=== PATIENT | male | born 1940 | race Caucasian/White ===

== ENCOUNTER 2017-09-12 16:00 | Inpatient (IN) ==
--- NOTE | 2017-09-12 16:07 | Emergency Department Report ---
Asthma HPI - General Stated Complaint: dyspnea,wound 3+ edema Time Seen by Provider: 09/12/17 16:07 Source: patient Mode of arrival: ambulatory Limitations: no limitations - History of Present Illness HPI Narrative: Patient is a 77-year-old male presents emergency room for evaluation of increasing weakness. Patient currently being treated for multiple small wounds on his bilateral lower extremities, has been noted to be getting significantly more weak at the senior care, and short of breath. Today patient was decided to be brought to the ER for evaluation. Patient states he just feels weak no specific complaint. - Related Data Home Medications Medication Instructions Recorded Confirmed Ascorbic Acid [Vitamin C] 1,000 mg PO DAILY #0 11/14/15 09/12/17 Pantoprazole Sodium 40 mg PO DAILY #0 11/14/15 09/12/17 Amiodarone [Pacerone] 200 mg PO BID 06/22/17 09/12/17 Metoprolol Tartrate [Lopressor] 100 mg PO BID 06/22/17 09/12/17 Tramadol [Ultram] 50 mg PO QID PRN 06/22/17 09/12/17 Melatonin/Pyridoxine HCl (B6) 6 mg PO HS 09/12/17 09/12/17 [Melatonin 3 mg Tablet] Simethicone 125 mg PO PRN 09/12/17 09/12/17 Tamsulosin [Flomax] 0.4 mg PO HS 09/12/17 09/12/17 Previous Rx's Medication Instructions Recorded Albuterol/Ipratropium [Duoneb] 1 unit AEROSOL QID PRN #0 09/24/17 Milk of Magnesia [Mom] 30 ml PO DAILY PRN udc 09/24/17 Oxycodone/Apap 7.5/325 [Percocet 1 tab PO Q4H #0 tab 09/24/17 7.5/325] PEG 3350 17gm PACKET [Miralax] 34 gm PO DAILY packet 09/24/17 Propylthiouracil 150 mg PO Q6HR tab 09/24/17 Senna + Docusate [Senna Plus 2 tab PO BID tab 09/24/17 Tablet] Allergies Allergy/AdvReac Type Severity Reaction Status Date / Time sulfamethoxazole Allergy Unknown Verified 09/12/17 16:41 [From Bactrim] trimethoprim [From Bactrim] Allergy Unknown Verified 09/12/17 16:41 Review of Systems Constitutional: Reports: weakness. Denies: fever, chills ENT: Denies: throat pain, dental pain Cardiovascular: Reports: dyspnea on exertion. Denies: chest pain Respiratory: Denies: cough, dyspnea Gastrointestinal: Denies: abdominal pain, nausea, vomiting Neurological: Denies: headache Psychiatric: Denies: anxiety, depression [facility] Patient Stated Medical History Hypertension Yes Other GI Yes: CONSTIPATION Osteoarthritis Yes Surgical History: Aortic aneurysm repair, appendectomy, pacemaker insertion - Social History Smoking status: Never smoker Substance use type: does not use Alcohol intake frequency: does not drink Physical Exam - Limitations Limitations: no limitations - General General appearance: alert, lethargic - Eye Eye exam: Present: PERRL, EOMI - ENT ENT exam: Present: normal oropharynx, mucous membranes dry. Absent: mucous membranes moist - Chest Chest inspection: Present: symmetric chest wall rise. Absent: tenderness - Respiratory Respiratory exam: Present: normal lung sounds bilaterally. Absent: respiratory distress, wheezes, stridor - Cardiovascular Cardiovascular exam: Present: regular rate, normal rhythm, normal heart sounds - Abdominal Exam Abdominal exam: Present: soft, normal bowel sounds. Absent: distention, tenderness - Extremities Exam Extremities exam: Present: normal capillary refill, pedal edema (3+ bilateral pitting) - Skin Skin exam: Present: warm, dry, pallor - Neurological Exam Neurological exam: Present: alert, oriented X3 - Psychiatric Psychiatric exam: Present: normal affect, normal mood Course Vital Signs Temperature 98.6 F 09/12/17 16:00 Pulse Rate 68 09/12/17 16:00 Respiratory Rate 22 09/12/17 16:00 Blood Pressure 90/55 09/12/17 16:00 Pulse Oximetry 93 09/12/17 16:00 Temperature 98.5 F 09/24/17 09:10 Pulse Rate 76 09/24/17 09:10 Respiratory Rate 16 09/24/17 15:10 Blood Pressure 113/64 09/24/17 09:10 Pulse Oximetry 88 L 09/24/17 11:36 Dyspnea - Differential Diagnosis Differential diagnosis: Likely: Acute exacerbation, Status asthmaticus, Acute asthmatic bronchitis, PE, Pneumonia, COPD exacerbation, Pulmonary edema systolic , Pulmonary edema dystolic, ARDS, Pneumothorax, Foreign body in trachea - Medical Records Attestation: I reviewed the patient's medical records. - Lab Data Attestation: I reviewed the patient's lab results. Result diagrams: 09/23/17 04:17 09/23/17 04:17 Lab Results 09/12/17 09/12/17 09/12/17 Range/Units 16:28 16:28 16:28 WBC 12.0 H (4.5-11.0) T/MM3 RBC 2.44 L (4.50-5.90) M/MM3 Hgb 6.9 L (13.5-17.5) GM/DL Hct 20.7 L (41-53) % MCV 84.8 (80-100) UM3 MCH 28.3 (26-34) UUG MCHC 33.3 (31-37) GM/DL RDW Std Deviation 45.6 (36.9-50.2) FL Plt Count 520 H (130-400) T/MM3 MPV 10.1 (9.4-12.4) UM3 Immature Gran % (Auto) Not performed Neut % (Auto) Not performed Lymph % (Auto) Not performed [place] % (Auto) Not performed Eos % (Auto) Not performed Baso % (Auto) Not performed Neut # (Auto) Not performed Lymph # (Auto) Not performed [place] # (Auto) Not performed Eos # (Auto) Not performed Baso # (Auto) Not performed Abs Immat Gran (auto) Not performed Neutrophils % (Manual) 88.0 H (33-66) % Band Neutrophils % 5.0 (0-6) % Lymphocytes % (Manual) 4.0 L (23-45) % Reactive Lymphs % 1.0 H (0-0) % Monocytes % (Manual) 2.0 (0-9.0) % Neutrophils # (Manual) 10.6 H (1.8-7.7) T/MM3 Band Neutrophils # 0.6 T/MM3 Lymphocytes # (Manual) 0.5 L (1-4.8) T/MM3 Abs React Lymphs (Man) 0.1 H (0-0) T/MM3 Monocytes # (Manual) 0.2 (0-0.8) T/MM3 Hypochromasia 1+ Poikilocytosis 1+ Anisocytosis 1+ Ovalocytes 1+ RBC Morph Comment Abnormal Turbidity < 20 (0-20) Sodium 132 L (134-144) MEQ/L Potassium 4.6 (3.6-5) MEQ/L Chloride 100 (98-107) MEQ/L Carbon Dioxide 25 (22-30) MEQ/L Anion Gap 7 (5-15) MEQ/L BUN 41.0 H (9-20) MG/DL Creatinine 1.9 H (0.8-1.5) MG/DL GFR Calculation 35 BUN/Creatinine Ratio 22 (6-26) RATIO Glucose 84 (75-110) MG/DL Calculated Osmolality 264 (261-280) MOSM/KG Calcium 6.6 L (8.4-10.2) MG/DL Total Bilirubin 0.50 (0.20-1.30) MG/DL Icterus Index < 2 (0-7) AST 62 H (17-59) U/L ALT 57 (21-72) U/L Alkaline Phosphatase 74 (38-126) U/L Troponin I 0.016 (0-0.12) ng/ml B-Natriuretic Peptide 4120 H (0-175) pg/mL Total Protein 4.8 L (6.3-8.2) G/DL Albumin 1.7 L (3.5-5.0) G/DL Globulin 3.1 (2.4-3.6) G/DL Albumin/Globulin Ratio 0.5 L (1.1-2.2) RATIO Plasma Lactate 1.3 (0.6-2.2) MMOL/L Procalcitonin 0.44 NG/ML TSH (0.47-4.68) MIU/L Specimen Hemolysis < 15 (0-25) Blood Type Antibody Screen Crossmatch (AHG) 09/12/17 09/12/17 Range/Units 16:28 17:07 WBC (4.5-11.0) T/MM3 RBC (4.50-5.90) M/MM3 Hgb (13.5-17.5) GM/DL Hct (41-53) % MCV (80-100) UM3 MCH (26-34) UUG MCHC (31-37) GM/DL RDW Std Deviation (36.9-50.2) FL Plt Count (130-400) T/MM3 MPV (9.4-12.4) UM3 Immature Gran % (Auto) Neut % (Auto) Lymph % (Auto) [place] % (Auto) Eos % (Auto) Baso % (Auto) Neut # (Auto) Lymph # (Auto) [place] # (Auto) Eos # (Auto) Baso # (Auto) Abs Immat Gran (auto) Neutrophils % (Manual) (33-66) % Band Neutrophils % (0-6) % Lymphocytes % (Manual) (23-45) % Reactive Lymphs % (0-0) % Monocytes % (Manual) (0-9.0) % Neutrophils # (Manual) (1.8-7.7) T/MM3 Band Neutrophils # T/MM3 Lymphocytes # (Manual) (1-4.8) T/MM3 Abs React Lymphs (Man) (0-0) T/MM3 Monocytes # (Manual) (0-0.8) T/MM3 Hypochromasia Poikilocytosis Anisocytosis Ovalocytes RBC Morph Comment Turbidity (0-20) Sodium (134-144) MEQ/L Potassium (3.6-5) MEQ/L Chloride (98-107) MEQ/L Carbon Dioxide (22-30) MEQ/L Anion Gap (5-15) MEQ/L BUN (9-20) MG/DL Creatinine (0.8-1.5) MG/DL GFR Calculation BUN/Creatinine Ratio (6-26) RATIO Glucose (75-110) MG/DL Calculated Osmolality (261-280) MOSM/KG Calcium (8.4-10.2) MG/DL Total Bilirubin (0.20-1.30) MG/DL Icterus Index (0-7) AST (17-59) U/L ALT (21-72) U/L Alkaline Phosphatase (38-126) U/L Troponin I (0-0.12) ng/ml B-Natriuretic Peptide (0-175) pg/mL Total Protein (6.3-8.2) G/DL Albumin (3.5-5.0) G/DL Globulin (2.4-3.6) G/DL Albumin/Globulin Ratio (1.1-2.2) RATIO Plasma Lactate (0.6-2.2) MMOL/L Procalcitonin NG/ML TSH < 0.02 L D (0.47-4.68) MIU/L Specimen Hemolysis (0-25) Blood Type O Positive Antibody Screen Negative Crossmatch (AHG) See Detail - Radiology Data Attestation: I reviewed the patient's radiology results. Improved with continued bilateral effusions with questionable mass Disposition Clinical Impression: Acute blood loss anemia, Dyspnea, Left lower lobe pneumonia Disposition: 02 To [facility] Acute Care Condition: Stable Time of Disposition: 17:06 - Seen By: physician
[2017-09-12] MEDS ORDERED: LEVOFLOXACIN PB 750 MG/150 ML BAG IV SCH (16:30)
--- NOTE | 2017-09-12 18:03 | History & Physical Report ---
History of Present Illness Date: 09/12/17 Chief complaint: trouble breathing HPI: Mesfin Fu is a 77 y/o male with a complicated medical hx. 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 He has been living at [facility]. He's had postop complications including wounds - a sacral wound, one to his right hip that is being treated with a wound vac, and wounds on both lower ext. His left leg has been chronically edematous since the surgery and more recently he's developed swelling to his upper left arm. He denies paresthesias but couldn't feel touch to his left lower leg during assessment. His denies any change in mentation - he has occasional confusion, especially regarding timeline. Over the last 2 weeks, he's had increasing shortness of breath, poor appetite, increased leg swelling, weeping of serous fluids from left arm and possibly legs. His , Casie, describes his breathing being so difficult at times he can' t talk. He had a CT scan to look for PE on 09/08/17. While this was negative for PE, it was positive for a moderate to large left pleural effusion, scattered bilateral groundlgass opacities, and a 3.6 x 2.4 cm masslike airspace consolidation in the medial RLL. He was started on cefdinir and Zithromax on . He's had fevers of 101-102 over the last week. He's had a cough as well. He feels weak in general. His describes abdominal cramps but he denies any current abdominal pain, or any recent n/v/d/c. He hasn't been voiding very much , but when he does it verduzco. He presented to [facility] ED on 09/12/17 for further evaluation of his symptoms. Initially he was maintaining sats on 3L, but then dropped to 81%. BP was as low as 82/46, and he received 500 mL fluid bolus. BP improved to >100/50. WBC was elevated at 12, and he had a left shift with 88% neutrophils and 5% bands. Hgb was markedly low at 6.9 and his stool was heme positive. Platelets were elevated at 520. Na was slightly low at 132; BUN and creatinine were elevated at 41 and 1.9, above baseline (per [facility] records, in Jun BUN was 10 and creatinine was 0.88, but in 2016 creatinine was 1.3-1.5). Albumin was also quite low at 1.7. CXR showed left sided pneumonia. He received Levaquin 750 mg IV for pneumonia. He was typed and screened for [address] Proctor was consulted and admitted the patient to inpatient status. LOS will exceed 2 overnights and will require cardiopulmonary stabilization, treatment of possible sepsis, and surgical consultation for heme positive stools and regarding the pleural effusion. Review of Systems All systems PM: 10-point ROS was reviewed, no additional remarkable complaints except - Constitutional Constitutional: Present: as per HPI - EENMT Eyes: Absent: change in vision Mouth/Throat: Absent: changes in swallowing - Cardiovascular Cardiovascular: Present: as per HPI Vascular: Present: see HPI - Respiratory Respiratory: Present: as per HPI - Gastrointestinal Gastrointestinal: Present: as per HPI - Genitourinary Genitourinary: Present: as per HPI - Musculoskeletal Musculoskeletal: Present: as per HPI - Integumentary/Breasts Integumentary: Present: as per HPI - Neurological Neurological: Present: as per HPI - Psychiatric Psychiatric: Present: as per HPI - Endocrine Endocrine: Absent: polyuria - Hematologic/Lymphatic Hematologic/Lymphatic: Present: easy bruising. Absent: lymphadenopathy PFSH AAA PVD Sacral pressure ulcer stage 3 Multiple wounds Paroxysmal A-fib (EF from 2016 was 50-55%) HTN Mild COPD; on 2L HS B/L small upper lobe pulmonary nodules Urinary retention - had Mercedes postop HLD GERD Constipation MERI, Vitamin B12, and folate deficiencies OA Nonambulatory Surgical History: Aortic aneurysm repair; 2004; again in Jun, 2016 s/p EVAR with type II endoleak s/p aortagram, b/l fem art exposure. Pacemaker insertion for bradycardia ([facility] [facility]). Hernia repairs x 3 or 4. Colonoscopy (about 2011) . Bowel resection for perforation. Appendectomy Family History: Father of unknown causes when Mesfin was only 2 years old. Mother had breast cancer, and of a stroke. 4 sisters, 1 still living. Two from kidney failure. The other one of uncertain causes. - Social History Smoking status: Former smoker (quit 11 years ago) Packs per day: 2 Packs-years: 17 Substance use type: does not use Alcohol intake frequency: does not drink Housing: [facility] Social history: PCP: Dr. Doyle Uro: Isadora CV: [facility] Lisa [facility] Home Medications Medication Instructions Recorded Confirmed Type Pravastatin Sodium 80 mg PO HS #0 10/07/12 09/12/17 History Ascorbic Acid [Vitamin C] 1,000 mg PO DAILY #0 11/14/15 09/12/17 History Pantoprazole Sodium 40 mg PO DAILY #0 11/14/15 09/12/17 History Amiodarone [Pacerone] 200 mg PO BID 06/22/17 09/12/17 History Furosemide [Lasix] 40 mg PO DAILY 06/22/17 09/12/17 History Lisinopril [Prinivil] 5 mg PO DAILY 06/22/17 09/12/17 History Metoprolol Tartrate [Lopressor] 100 mg PO BID 06/22/17 09/12/17 History Tramadol [Ultram] 50 mg PO QID PRN 06/22/17 09/12/17 History Albuterol/Ipratropium [Duoneb] 1 unit AEROSOL QID 09/12/17 09/12/17 History Azithromycin [Zithromax] 250 mg PO DAILY 09/12/17 09/12/17 History Cefdinir 600 mg PO DAILY 09/12/17 09/12/17 History Cholecalciferol (Vitamin D3) 1,000 unit PO DAILY 09/12/17 09/12/17 History [Vitamin D3] Docusate Sodium [Colace] 100 mg PO BID 09/12/17 09/12/17 History Ferrous Sulfate [Iron] 325 mg PO BID 09/12/17 09/12/17 History Magnesium Oxide [Magox 400] 400 mg PO BID 09/12/17 09/12/17 History Melatonin/Pyridoxine HCl (B6) 6 mg PO HS 09/12/17 09/12/17 History [Melatonin 3 mg Tablet] Multivitamin [One Daily 1 each PO DAILY 09/12/17 09/12/17 History Multivitamin] Polyethylene Glycol 3350 17 gm PO DAILY 09/12/17 09/12/17 History Rivaroxaban [Xarelto] 20 mg PO DAILY 09/12/17 09/12/17 History Simethicone 125 mg PO PRN 09/12/17 09/12/17 History Tamsulosin [Flomax] 0.4 mg PO HS 09/12/17 09/12/17 History Allergies Allergy/AdvReac Type Severity Reaction Status Date / Time sulfamethoxazole Allergy Unknown Verified 09/12/17 16:41 [From Bactrim] trimethoprim [From Bactrim] Allergy Unknown Verified 09/12/17 16:41 Exam Vital Signs: Temperature 98.6 F 09/12/17 16:00 Pulse Rate 64 09/12/17 17:11 Respiratory Rate 20 09/12/17 17:11 Blood Pressure 102/51 09/12/17 17:11 Pulse Oximetry 92 09/12/17 17:11 - Constitutional Present: well nourished, well developed, thin, other (chills - covered with multiple blankets) - Routine HEENT Exam Head: Present: normocephalic Eye: Present: PERRL. Absent: conjunctival icterus, scleral injection, conjunctivae pink ENT: Present: mucous membranes dry, oropharynx clear. Absent: dentition normal - Routine Neck Exam Present: supple - Routine Respiratory Exam Present: decreased breath sounds (B/L lower lobes) - Routine Cardiovascular Exam Present: RRR, S1, S2 Comments: distant heart sounds - Routine Abdominal Exam Present: soft, normoactive bowel sounds, non distended, non tender, hernia, surgical scars - Routine Extremities Exam Present: edema (both legs, worse on left leg; also noted to left upper arm), pallor Comments: foam boots b/l - Routine Skin Exam Present: pallor, warm, wounds (wound vac to right hip; linear erythemic lesions noted to both lower ext; wounds are dressed with Mepilex to both lower ext.) - Routine Neurological Exam Present: alert, oriented X3, CN II-XII intact, sensory deficit (left lower extremity), normal speech. Absent: moving all extremities (unable to move left leg - chronic since surgery), facial asymmetry - Routine Psychiatric Exam Present: normal affect, normal thought process, cooperative Results - Labs CBC & Chem 7: 09/12/17 16:28 09/12/17 16:28 - Imaging and Cardiology Chest x-ray Status: image reviewed by me (Left sided pneumonia) Assessment and Plan Assessment and Plan: IMPRESSION Pneumonia, left lung R/O severe sepsis - MAP <65 ABLA secondary to suspected GI bleed Moderate to large left pleural effusion 3.6 x 2.4 cm rounded masslike airspace consolidation RLL Suspect CHF with elevated BNP Elevated creatinine Hypoxia Thrombocytosis, POA Hyponatremia, POA Malnutrition with albumin level of 1.7 AAA, PVD Sacral pressure ulcer stage 3 Multiple wounds with wound vac to right hip Paroxysmal A-fib (EF from 2016 was 50-55%) HTN Mild COPD; on 2L HS HLD GERD Constipation MERI, Vitamin B12, and folate deficiencies Nonambulatory; left leg paralysis PLAN Admit, inpt status. PCP: Dr. Doyle. Code status: Full code. Pneumonia, R/O severe sepsis, hypoxia, mod-large pleural effusion, mild COPD -PSI/PORT = 147 points, risk class V (27-29% mortality) -Failed outpatient treatment with cefdinir and azithromycin (09/08-09/12) -received Levaquin IV in Ed but with severe interaction with amiodarone will start Rocephin instead -sputum cx, urine legionella and strep pneumo, resp panel -DuoNeb QID -O2 to maintain sats -elect not to give full fluid bolus d/t pleural effusion, hypoxia, and elevated BNP. BP responded well to 500 mL fluid challenge. -consult Dr. Mcpherson to tap pleural effusion. -consider pulm consult on Saturday 09/15. -suspect thrombocytosis is reactive to acute conditions. -may need oncology evaluation with masslike consolidation seen on CT chest ABLA secondary to suspected GI bleed -PRBC transfusion x1 unit. -hold Xarelto -anemia may be contributing to hypotension. -clear liquid diet for now (at [facility] he is on a regular diet and regular liquids) -PPI Suspect CHF with elevated BNP and mod-large pleural effusion -check echocardiogram -EKG -continue amiodarone and metoprolol if BP can tolerate -consider cardiology consultation (Dr. Porras) Elevated creatinine, hyponatremia -500 mL NS bolus in ED -hold Lasix, lisinopril Multiple wounds, Malnutrition -consult wound clinic -consult dietitian when diet is advanced -hx MERI, vit B12 and folate deficiencies Soto Proctor M.D. 09/12/17 9 PM Mr. Fu is a complex patient, including incomplete database despite review of transfer records from [facility] and available outpatient records from [facility]. Duration of anemia is uncertain-hemoglobin known to be 12.8 on 06/22 but that precedes the aneurysm repair in June by Dr. Raul Briscoe. No interval hemoglobins available. Patient is heme positive and may require endoscopic evaluation when other issues clarified. He denies melanotic stools or bright red blood per rectum. His primary complaint today is dyspnea and he reports that he is only been on oxygen for 2-3 weeks. He describes temperatures of 102-104 although review of available records from the [facility] do not reveal any temperatures above 100. Nonetheless CTA was obtained on 09/08 which was negative for PE but demonstrated a 3.6 x 2.4 medial lower lobe rounded mass speculated to be rounded infiltrate versus solid mass. This is nearly pleural based and there is minimal pleural effusion on the right. There is a moderately large left pleural effusion with near complete collapse of the left lower lobe and there does appear to be a rounded area either at the superior aspect of the left lower lobe or the inferior aspect of the left upper lobe. Chest x-ray today does not demonstrate the effusion nearly as well as the CT did but there is suggestion of the left lower lobe collapse, the right lower lobe mass cannot be identified by me on today's x-ray. The patient had a follow-up CT of the abdomen on 08/[address] Briscoe at which time trace right and small left pleural effusions were described and although not well seen there is a suggestion of a pleural based right lower lobe mass in the right medial lobe at that time. Hypotension has not been reported and recent readings at the nursing facility and he has intermittently been hypertensive until this morning when blood pressures was reported at 91/42. long term reports general decline in health as indication for ER referral. On exam the patient is apprehensive, difficult to keep on track, and afebrile Breath sounds are diminished but there is no wheezing, breath sounds are significantly diminished in the left laterally-posterior lung argueta were not evaluated as blood transfusion was being initiated while I was trying to examine him Cardiac exam regular There is generalized anasarca and suggestion of abdominal ascites Repeat CT of the abdomen/pelvis without IV contrast-eval for ascites and sacral erosions. Contrast load earlier this week with CTA may be contributing to current creatinine although he appears to have chronic underlying CKD stage III Surgical consultation; thoracentesis can potentially wait until next week but I think will benefit patient symptomatically and permit cytologies and cultures to be obtained. Of note however the mass described is on the right and the larger pleural effusion is on the left. Assessment nutrition; albumin has dropped from 3.5 on 06/22 to current value of 1.7. Given uncertainty of whether there is truly pneumonia will await culture before expanding antibiotics; sirs criteria can also potentially be explained by blood loss and may not reflect infection. Should hemodynamic instability persist or fever evolved will require empiric expansion of antibiotics to cover healthcare associated pathogens. Wound VAC resumed for coccyx wound-nursing reports no surrounding erythema: Wound care notes from earlier this week report the coccyx ulcer has granulation tissue with some slough present and that ulcers in the right lateral malleolus has granulation tissue, eschar, and slough while multiple ulcerations/wounds in the left lower extremity are granulating with slough present. Wound cultures on July 25 (including possible sacral bone culture) positive for oxacillin resistant coag negative staph in addition to unidentified gram-negative cordell and strep viridans. Check inflammatory markers, will require inpatient wound care consult. GI Prophylaxis: Protonix Resuscitation Status: Full Code Hospital Course Summary Disclaimer: The visit summary below is not to be considered part of the above Progress Note. Hospital Course: 09/12/17 IMPRESSION Pneumonia, left lung R/O severe sepsis - MAP <65 ABLA secondary to suspected GI bleed Moderate to large left pleural effusion 3.6 x 2.4 cm rounded masslike airspace consolidation RLL Suspect CHF with elevated BNP Elevated creatinine Hypoxia Thrombocytosis, POA Hyponatremia, POA Malnutrition with albumin level of 1.7 AAA, PVD Sacral pressure ulcer stage 3 Multiple wounds with wound vac to right hip Paroxysmal A-fib (EF from 2016 was 50-55%) HTN Mild COPD; on 2L HS HLD GERD Constipation MERI, Vitamin B12, and folate deficiencies Nonambulatory; left leg paralysis PLAN Admit, inpt status. PCP: Dr. Doyle. Code status: Full code. Pneumonia, R/O severe sepsis, hypoxia, mod-large pleural effusion, mild COPD -PSI/PORT = 147 points, risk class V (27-29% mortality) -Failed outpatient treatment with cefdinir and azithromycin (09/08-09/12) -received Levaquin IV in Ed but with severe interaction with amiodarone will start Rocephin instead -sputum cx, urine legionella and strep pneumo, resp panel -DuoNeb QID -O2 to maintain sats -elect not to give full fluid bolus d/t pleural effusion, hypoxia, and elevated BNP. BP responded well to 500 mL fluid challenge. -consult Dr. Mcpherson to tap pleural effusion. -consider pulm consult on Saturday 09/15. -suspect thrombocytosis is reactive to acute conditions. -may need oncology evaluation with masslike consolidation seen on CT chest ABLA secondary to suspected GI bleed -PRBC transfusion x1 unit. -hold Xarelto -anemia may be contributing to hypotension. -clear liquid diet for now (at [facility] he is on a regular diet and regular liquids) -PPI Suspect CHF with elevated BNP and mod-large pleural effusion -check echocardiogram -EKG -continue amiodarone and metoprolol if BP can tolerate -consider cardiology consultation (Dr. Porras) Elevated creatinine, hyponatremia -500 mL NS bolus in ED -hold Lasix, lisinopril Multiple wounds, Malnutrition -consult wound clinic -consult dietitian when diet is advanced -hx MERI, vit B12 and folate deficiencies
[2017-09-12 18:13] VITALS: BMI 24.7
[2017-09-12] MEDS ORDERED: ONDANSETRON 4 MG/2 ML INJECTION IVP PRN (18:40)
[2017-09-12] MEDS ORDERED: ACETAMINOPHEN 500 MG TABLET PO PRN (18:40)
[2017-09-12] MEDS: ALBUTEROL/IPRATROPIUM 2.5mg-0.5mg/3ml NEB AEROSOL SCH (20:09)
[2017-09-12] MEDS ORDERED: FUROSEMIDE 20 MG/2 ML INJECTION IVP ONE (21:00)
[2017-09-12] MEDS ORDERED: PRAVASTATIN SODIUM 80 MG PO SCH (21:00)
[2017-09-12] MEDS: AMIODARONE 200 MG TABLET PO SCH (21:25)
[2017-09-12] MEDS: TAMSULOSIN 0.4 MG CAPSULE PO SCH (21:26)
[2017-09-12] MEDS: TRAMADOL 50 MG TABLET PO PRN (21:27)
[2017-09-12] MEDS ORDERED: FERROUS SULFATE 324 MG TABLET PO SCH (21:45)
[2017-09-12] MEDS: PRAVASTATIN 40 MG TABLET PO SCH (23:52)
[2017-09-12] MEDS: CEFTRIAXONE 1 G in NS 100 ML IV SCH (23:55)
[2017-09-13] MEDS: TRAMADOL 50 MG TABLET PO PRN (05:04)
[2017-09-13] MEDS: ALBUTEROL/IPRATROPIUM 2.5mg-0.5mg/3ml NEB AEROSOL SCH ×4 (07:06→20:40)
[2017-09-13] MEDS: MELATONIN 5 MG TABLET PO SCH ×2 (07:25→20:22)
[2017-09-13] MEDS: PANTOPRAZOLE 40 MG TABLET PO SCH (07:32)
[2017-09-13] MEDS ORDERED: NS 100 ML ONE (08:18)
[2017-09-13] MEDS ORDERED: IOHEXOL 300mg/ml 100ml INJECTION ONE (08:18)
[2017-09-13] MEDS ORDERED: SALINE FLUSH 10ml SYRINGE ONE (08:18)
[2017-09-13] MEDS: ASCORBIC ACID 500 MG TABLET PO SCH (09:24)
[2017-09-13] MEDS: AMIODARONE 200 MG TABLET PO SCH ×2 (09:24→20:21)
[2017-09-13] MEDS: MAGNESIUM OXIDE 400 MG TABLET PO SCH ×2 (09:24→20:22)
[2017-09-13] MEDS: HYDROCODONE/APAP 7.5 MG/325 MG TABLET PO PRN ×4 (09:24→21:52)
[2017-09-13] MEDS: FERROUS SULFATE 324 MG TABLET PO SCH ×2 (09:24→18:09)
[2017-09-13] MEDS: SENNA + DOCUSATE TABLET PO SCH ×2 (09:25→20:22)
[2017-09-13] MEDS: POLYETHYL GLYCOL 3350 17gm PACKET PO SCH (09:25)
--- NOTE | 2017-09-13 11:04 | Progress Note ---
- Date 09/13/17 Subjective: I assumed care this morning; extensive chart review done. Mr. Fu is hurting this morning, has pain "all over" and describes this as a deep pain "in my insides". He is requesting something stronger than tramadol for pain. Breathing is still difficult, feels slightly better but still dyspneic at rest. No fever this morning. Denies nausea but has no appetite. Objective Vital signs: Temperature 97.6 F 09/13/17 07:00 Pulse Rate 67 09/13/17 07:00 Respiratory Rate 20 09/13/17 10:45 Blood Pressure 110/71 09/13/17 07:00 Pulse Oximetry 94 09/13/17 10:45 Rhythm: Normal Sinus Rhythm Height/Weight/BMI: Height 1.73 m Weight 74 kg Body Mass Index 24.7 - Constitutional Present: mild distress (due to pain and dyspnea ), cooperative Comments: chronically ill appearing - Routine HEENT Exam Head: Present: normocephalic, atraumatic Eye: Present: EOMI, PERRL. Absent: conjunctival icterus ENT: Present: mucous membranes moist, oropharynx clear - Routine Respiratory Exam Present: decreased breath sounds, rhonchi, diminished air movement. Absent: accessory muscle use, wheezes, crackles - Routine Cardiovascular Exam Present: RRR. Absent: murmur - Routine Abdominal Exam Present: soft, tenderness (mild, diffuse, without rebound/guarding/rigidity ), non distended - Routine Extremities Exam Present: edema (1+ throughout ), pulses intact - Routine Skin Exam Present: dry, warm. Absent: rash - Routine Neurological Exam Present: alert, oriented X3 - Routine Psychiatric Exam Present: normal affect, normal thought process Results - Labs CBC & Chem 7: 09/13/17 04:53 09/13/17 04:53 Microbiology Results: Microbiology 09/12/17 21:07 Sputum, Expectorated Sputum Culture - Preliminary Culture Initiated - Results Pending Assessment and Plan Assessment and Plan: IMPRESSION Pneumonia, left lung, on CXR 09/12, started on rocephin/levaquin empirically --> sputum and blood cultures still pending Sepsis with hypotension, leukocytosis, tachycardia at initial presentation --> improved with IV antibiotics and PRBC; hemodynamics stabilized ABLA secondary to suspected GI bleed; xarelto held and PRBC given 09/12 Moderate to large left pleural effusion 3.6 x 2.4 cm rounded masslike airspace consolidation RLL Suspect CHF with elevated BNP and total body volume overload on exam CKD III, cr 1.8 at admission, ? baseline Hypoxia Thrombocytosis, POA, Plt 515K Hyponatremia, POA, Na 131 today Malnutrition with albumin level of 1.7 (Severe PCM) AAA, PVD Sacral pressure ulcer stage 3 Multiple wounds with wound vac to right hip Paroxysmal A-fib (EF from 2016 was 50-55%) Mild COPD; on 2L HS typically HLD GERD Constipation MERI, Vitamin B12, and folate deficiencies Nonambulatory; left leg paralysis PLAN Admit, inpt status. PCP: Dr. Doyle. Code status: Full code. Pneumonia and sepsis, hypoxia, mod-large pleural effusion, mild COPD -PSI/PORT = 147 points, risk class V (27-29% mortality) -Failed outpatient treatment with cefdinir and azithromycin (09/08-09/12) -received Levaquin IV in Ed but transitioned to rocephin due to interaction with amiodarone -sputum cx, urine legionella and strep pneumo, resp panel (pending, will follow) -DuoNeb QID -O2 to maintain sats -Hold on IVF support given overload on exam -consulted Dr. Mcpherson to tap pleural effusion, likely Friday -may need pulm consult on Saturday 09/15. -suspect thrombocytosis is reactive to acute conditions. -may need oncology evaluation with masslike consolidation seen on CT chest; will plan for cytology as well with thoracentesis ABLA secondary to suspected GI bleed -PRBC transfusion x1 unit, Hb improved to 8.1 today -holding Xarelto -anemia likely contributing to hypotension -clear liquid diet for now (at [facility] he is on a regular diet and regular liquids) -PPI - Will discuss with Dr. Mcpherson if further concern for bleeding; had c- scope last year with him Suspect CHF with elevated BNP and mod-large pleural effusion -check echocardiogram (pending) -continue amiodarone and metoprolol and monitor BP -consider cardiology consultation (Dr. Porras) pending TTE findings - Will redose lasix 20 mg IV x 1 today and monitor Elevated creatinine, hyponatremia -continue to hold ACEI, likely at renal baseline based on records review ( CKD III) - Hypervolemic, lasix 20 mg IV x 1 today and monitor outputs - Renal panel, Mg in AM for surveillance Multiple wounds, Malnutrition -consulted wound clinic -consult dietitian when diet is advanced -hx MERI, vit B12 and folate deficiencies - Wound vac continued Continue to hold IVF, allow po intake as tolerated with liquid diet today pending further surgical opinion. Lasix 20 mg IV x 1 Increased pain medications to norco 7.5 Q6H and stopped tramadol. Await CTAP findings that are currently pending. Discussed with bedside RN and patient. DVT Prophylaxis: SCD's (xarelto on hold due to GIB concern ) GI Prophylaxis: Protonix Resuscitation Status: Full Code Hospital Course Summary Disclaimer: The visit summary below is not to be considered part of the above Progress Note. Hospital Course: 09/12/17 IMPRESSION Pneumonia, left lung R/O severe sepsis - MAP <65 ABLA secondary to suspected GI bleed Moderate to large left pleural effusion 3.6 x 2.4 cm rounded masslike airspace consolidation RLL Suspect CHF with elevated BNP Elevated creatinine Hypoxia Thrombocytosis, POA Hyponatremia, POA Malnutrition with albumin level of 1.7 AAA, PVD Sacral pressure ulcer stage 3 Multiple wounds with wound vac to right hip Paroxysmal A-fib (EF from 2016 was 50-55%) HTN Mild COPD; on 2L HS HLD GERD Constipation MERI, Vitamin B12, and folate deficiencies Nonambulatory; left leg paralysis PLAN Admit, inpt status. PCP: Dr. Doyle. Code status: Full code. Pneumonia, R/O severe sepsis, hypoxia, mod-large pleural effusion, mild COPD -PSI/PORT = 147 points, risk class V (27-29% mortality) -Failed outpatient treatment with cefdinir and azithromycin (09/08-09/12) -received Levaquin IV in Ed but with severe interaction with amiodarone will start Rocephin instead -sputum cx, urine legionella and strep pneumo, resp panel -DuoNeb QID -O2 to maintain sats -elect not to give full fluid bolus d/t pleural effusion, hypoxia, and elevated BNP. BP responded well to 500 mL fluid challenge. -consult Dr. Mcpherson to tap pleural effusion. -consider pulm consult on Saturday 09/15. -suspect thrombocytosis is reactive to acute conditions. -may need oncology evaluation with masslike consolidation seen on CT chest ABLA secondary to suspected GI bleed -PRBC transfusion x1 unit. -hold Xarelto -anemia may be contributing to hypotension. -clear liquid diet for now (at [facility] he is on a regular diet and regular liquids) -PPI Suspect CHF with elevated BNP and mod-large pleural effusion -check echocardiogram -EKG -continue amiodarone and metoprolol if BP can tolerate -consider cardiology consultation (Dr. Porras) Elevated creatinine, hyponatremia -500 mL NS bolus in ED -hold Lasix, lisinopril Multiple wounds, Malnutrition -consult wound clinic -consult dietitian when diet is advanced -hx MERI, vit B12 and folate deficiencies 09/13/17 11:12 Await surgical opinion regarding possible thoracentesis on Friday. Continue supportive care with IV antibiotics. Lasix 20 mg IV x 1 for volume management. Increased pain medications (stopped tramadol, started norco 7.5 mg 6H prn) Continue clear liquids pending surgical opinion. Surveillance labs for AM on 09/14 Wound team following, continues on wound vac for pressue ulcer.
[2017-09-13] MEDS ORDERED: FUROSEMIDE 20 MG/2 ML INJECTION IVP ONE (11:15)
--- NOTE | 2017-09-13 15:08 | Consultation ---
DATE OF CONSULTATION 09/13/2017 HISTORY OF PRESENT ILLNESS This patient is 77 years old. This patient was evaluated at [facility] on 09/12/2017 with a chief complaint of difficulty breathing. There was a history given that the patient had been experiencing increasing shortness of breath the previous two weeks. His reported that his breathing was so difficult that he couldn't talk at times. The patient underwent a CT scan of the chest to look for a pulmonary embolus on 09/08/2017. This CT scan was negative for a pulmonary embolus. The CT scan was positive for a yhhwyyrl-[id number] left pleural effusion, scattered bilateral ground-glass opacities and a 3.6 cm x 2.4 cm area of air-space consolidation at the medial right lower lobe. The patient was started on treatment with cefdinir and Zithromax on 09/08/2017. The patient has been weak. The patient did undergo a chest x-ray at [facility] on 09/12/2017. This shows a left pneumonia and a tiny left pleural effusion. There is no anflq-fe-zozgrkiw-size left pleural effusion demonstrated on this chest x-ray. There is only a tiny left pleural effusion. CBC was performed at the time of evaluation at the emergency room. The hemoglobin was 6.9 and hematocrit was 20.7 at this time. The patient did apparently undergo digital rectal examination at the emergency room visit and was found have a Hemoccult- positive stool. The patient has subsequently been admitted to [facility] for further evaluation and treatment. The patient did undergo an abdominal aortic aneurysm repair in June 2017 at [facility]. The patient has had left leg paralysis and been unable to stand or ambulate since then. He has also recently developed some left arm swelling. The patient has had a low hemoglobin since the abdominal aortic aneurysm repair. The hemoglobin has been in the range of 8 since that operation. The patient does deny any hematochezia. He denies any melena. He has not been having any abdominal pain. PAST MEDICAL HISTORY PREVIOUS OPERATIONS AND PROCEDURES 1. Appendectomy [id number] at [place], [place]. 2. Bilateral vasectomy on 05/11/[address] Puma Dunlap at [facility]. 3. Proctosigmoidoscopy and hemorrhoidectomy on 01/25/[address] Eleazar Escobar at [facility] at [place], [place]. Discharge diagnoses for this hospitalization were hemorrhoids with prolapse and recurrent bleeding. 4. Sigmoid colon resection with end colostomy formation and closure of distal segment of sigmoid colon (first stage Neo procedure) on 12/22/[address] Mcpherson at [facility] at [place], [place]. Discharge diagnoses for this hospitalization were perforated sigmoid colon diverticulum, generalized peritonitis, painful ankylosed left molar tooth (#19), postoperative fever and leukocytosis, bilateral inguinal hernias, nicotine dependence and hypertension. 5. Laparotomy, lysis of intraabdominal adhesions and colostomy closure on 04/[address] Mcpherson at [facility] at [place], [place]. Discharge diagnoses were left lower quadrant colostomy, intraabdominal adhesions, hypertension and nicotine dependence. 6. Total colonoscopy on 07/15/[address] Mcpherson at [facility] at [place], [place]. The patient was found to have internal hemorrhoids at the time of this procedure. 7. Repair of large incisional hernia at upper abdomen on 11/08/[address] Mcpherson at [facility] at [place], [place]. Discharge diagnoses were large incisional hernia at upper abdomen, hypertension, nicotine dependence, constipation and internal hemorrhoids. 8. Repair of left inguinal hernia on 10/02/[address] Mcpherson at [facility] at [place], [place]. Discharge diagnosis was left inguinal hernia. 9. Repair of abdominal aortic aneurysm with open aortic stent (Palmaz 4010) and redo right groin exposure on 12/29/[address] Mukesh Rodrigez at [facility] [place], [place]. Postoperative diagnosis was abdominal aortic aneurysm with type 1 endoleak. 10. Repair of abdominal aortic aneurysm with bifurcated graft and right iliac artery extension and three left iliac artery extensions on 10/02/[address] Mukesh Rodrigez at [facility] at [place], [place]. Postoperative diagnosis was abdominal aortic aneurysm. 11. Total colonoscopy with biopsy on 10/09/[address] Mcpherson at [place], [place]. Postoperative diagnoses were desire for screening for colon and rectal carcinoma, small colon polyp at hepatic flexure and chronic constipation. 12. Implantation of permanent cardiac pacemaker. 13. Abdominal aortic aneurysm repair in June [address] Tano Briscoe at [facility] at [place], [place]. PHYSICAL EXAM VITAL SIGNS: Temperature is 97.6 degrees Fahrenheit oral. Pulse is 67. Respiratory rate is 20. Blood pressure is 110/71. Oxygen saturation is 95% on oxygen at 4 liters per minute by nasal cannula. CHEST: There are clear lung sounds bilaterally at this time. Lung sounds are somewhat distant. No wheezes at this time. ABDOMEN: The abdomen is soft and nontender. LABORATORY DATA Hemoglobin was 6.9 and hematocrit was 20.7 on 09/12/2017. White blood cell count was 12,000 on 09/12/2017. White blood cell count is 10,800 on 09/13/2017. Hemoglobin is 8.1 and hematocrit is 24.4 on 09/13/2017 after the patient has received transfusion with 1 unit of packed red blood cells following admission to the hospital. IMAGING DATA The patient did have a chest x-ray performed on 09/12/2017 at [facility]. I did review the chest x-ray with Dr. Cisneros. This appears to show a tiny left pleural effusion. There is no moderate or large left pleural effusion demonstrated by this chest x-ray. The patient appears to have some left-sided pneumonia. IMPRESSION 1. Left lung pneumonia. 2. Tiny left pleural effusion demonstrated on 09/12/2017 chest x-ray. 3. Mild chronic obstructive pulmonary disease. 4. Severe anemia. This is probably multifactorial. Some of this anemia is probably due to blood loss from the time of the June 2017 abdominal aortic aneurysm repair. The Hemoccult-positive stool which the patient had in the emergency room on 09/12/2017 would suggest that the patient might also have a component of gastrointestinal tract blood loss anemia present. 5. Hemoccult-positive stool at emergency room on 09/12/2017. 6. Status post sigmoid colon resection with end colostomy formation and closure of distal segment of sigmoid colon (first stage Neo procedure) on 12/22/1993. 7. Status post laparotomy with colostomy closure on 04/10/1994. 8. Paroxysmal atrial fibrillation. 9. Anticoagulation with Xarelto. 10. Congestive heart failure. 11. Hypertension. 12. Hyperlipidemia. 13. Stage III chronic kidney disease. 14. Nonambulatory with left leg paralysis. 15. Stage III sacral pressure ulcer. 16. Malnutrition. RECOMMENDATIONS 1. I would hold off on any left thoracentesis at this time since the left pleural effusion appears to be so tiny at this time. I think that the risks would outweigh the benefits with the tiny size of the effusion at this time. I did discuss this with Dr. Nasima Cisneros today. 2. Hold Dangelo. 3. I think it might be a good idea for the patient to have gastrointestinal tract endoscopy at some point during the course of this current hospitalization to look for any source for gastrointestinal tract blood loss which could be contributing to the severe anemia which this patient had at the time of admission to the hospital. EMA
[2017-09-13] MEDS ORDERED: NS FLUSH BAG 500ml IV PRN (20:04)
[2017-09-13] MEDS ORDERED: SALINE FLUSH 10ml SYRINGE IV PRN (20:05)
[2017-09-13] MEDS: CEFTRIAXONE 1 G in NS 100 ML IV SCH (20:20)
[2017-09-13] MEDS: SALINE FLUSH 10ml SYRINGE IV PRN (20:21)
[2017-09-13] MEDS: PRAVASTATIN 40 MG TABLET PO SCH (20:21)
[2017-09-13] MEDS: TAMSULOSIN 0.4 MG CAPSULE PO SCH (20:22)
[2017-09-13] MEDS: MELATONIN 1 MG TABLET PO SCH (20:22)
[2017-09-14] MEDS: HYDROCODONE/APAP 7.5 MG/325 MG TABLET PO PRN ×4 (03:18→18:01)
[2017-09-14] MEDS: PANTOPRAZOLE 40 MG TABLET PO SCH (06:22)
[2017-09-14] MEDS: ALBUTEROL/IPRATROPIUM 2.5mg-0.5mg/3ml NEB AEROSOL SCH ×4 (07:12→19:54)
--- NOTE | 2017-09-14 09:22 | XRay Report ---
INDICATION: dyspnea, general debility, sepsis question source PROCEDURE: CHEST 2-VIEWS UPRIGHT (PA & LAT) Encounter: Initial COMPARISON: CT angiogram of the chest dated September 08, 2017 FINDINGS: Left pleural effusion has slightly decreased. Small left and trace right pleural effusions remaining. No pneumothorax. There is continued airspace opacity in the left lower lobe which has a masslike appearance on the comparison CT. The medial right lower lobe area of nodule or mass is not seen radiographically. Heart size and mediastinal contours are stable. Left pacemaker. Pulmonary vascularity is within normal limits. Impression: Improved pleural effusions. Continued area of density in the left lower lobe which is concerning for a pulmonary mass on the prior CT. Recommend correlation with diagnostic thoracentesis as indicated. Short-term follow-up chest CT is again recommended. .
--- NOTE | 2017-09-14 10:00 | CT Scan Report ---
Indication: ascites, AAA, sacral decub PROCEDURE: CT abdomen pelvis w con: Encounter: Initial Comparison: CT abdomen dated August 01, 2017 Technique: Axial CT images were performed through the abdomen and pelvis after the administration of intravenous contrast. Coronal and sagittal two-dimensional reformats. Automated Exposure Control and Iterative Reconstruction dose reducing techniques were utilized. Contrast: Omnipaque 300 89 mL Findings: Moderate left pleural effusion with left lower lobe compressive atelectasis. Small nodular opacities in the right lower lobe with trace right effusion. The liver shows a small low-attenuation lesion possibly representing a cyst peripherally. The spleen, pancreas, adrenal glands and kidneys are stable. Previously repaired abdominal aortic aneurysm with a large excluded aneurysm sac, similar to the prior study. No evidence of rupture or impending rupture. Diffuse subcutaneous edema. Stent graft extends into the iliac arteries bilaterally. Bladder is grossly normal. Small amount of free pelvic fluid. Colonic anastomosis. No evidence of a small bowel obstruction. No free air. Severe degenerative change in the hips. Severe degenerative change in the lower lumbar spine. Bony demineralization. Deep skin ulcer noted over the lower portion of the sacrum which may extend to the bone. Impression: 1. No acute disease process seen in the abdomen or pelvis. 2. Anasarca consistent with a generalized volume overload. 3. Left pleural effusion. 4. Sacral decubitus ulcer. There is a preliminary report by [employer]. .
[2017-09-14] MEDS: MAGNESIUM OXIDE 400 MG TABLET PO SCH ×2 (10:21→20:26)
[2017-09-14] MEDS: FERROUS SULFATE 324 MG TABLET PO SCH ×2 (10:21→18:01)
[2017-09-14] MEDS: AMIODARONE 200 MG TABLET PO SCH ×2 (10:21→20:26)
[2017-09-14] MEDS: SENNA + DOCUSATE TABLET PO SCH ×2 (10:22→21:00)
[2017-09-14] MEDS: ASCORBIC ACID 500 MG TABLET PO SCH (10:22)
[2017-09-14] MEDS: POLYETHYL GLYCOL 3350 17gm PACKET PO SCH (10:22)
[2017-09-14] MEDS ORDERED: FUROSEMIDE 20 MG/2 ML INJECTION IVP ONE (13:45)
--- NOTE | 2017-09-14 13:50 | Progress Note ---
- Date 09/14/17 Subjective: Feeling a little better this morning, breathing improved after diuretics. Still feels weak overall. Long conversation about goals of care, overall prognosis. Diet modified yesterday and swallow study pending for tomorrow. Denies fevers, chills, chest pain, abdominal pain. Wants to "either get better or get on with it". States "I am tired of being in the hospital all the time". Objective Vital signs: Temperature 95.7 F L 09/14/17 07:00 Pulse Rate 68 09/14/17 07:00 Respiratory Rate 16 09/14/17 11:09 Blood Pressure 103/65 09/14/17 07:00 Pulse Oximetry 95 09/14/17 11:09 Rhythm: Normal Sinus Rhythm Height/Weight/BMI: Height 1.73 m Weight 72.9 kg Body Mass Index 24.7 - Constitutional Present: no acute distress - Routine HEENT Exam Head: Present: normocephalic, atraumatic Eye: Present: EOMI, PERRL ENT: Present: mucous membranes moist, oropharynx clear - Routine Respiratory Exam Present: decreased breath sounds, rhonchi. Absent: accessory muscle use, wheezes, crackles - Routine Cardiovascular Exam Present: RRR, irregularly irregular. Absent: murmur - Routine Abdominal Exam Present: soft, normoactive bowel sounds, non distended, non tender - Routine Extremities Exam Present: edema (trace to 1+ throughout ) - Routine Skin Exam Present: dry, warm. Absent: rash - Routine Neurological Exam Present: alert, oriented X3, normal speech - Routine Psychiatric Exam Present: normal affect, normal thought process Results - Labs CBC & Chem 7: 09/14/17 04:34 09/14/17 04:34 Microbiology Results: Microbiology 09/12/17 21:07 Sputum, Expectorated Gram Stain - Final 09/12/17 21:07 Sputum, Expectorated Sputum Culture - Preliminary 09/12/17 18:37 Urine Legionella Urinary Antigen - Final 09/12/17 21:18 Urine Streptococcus pneumoniae Antigen (M - Final Assessment and Plan Assessment and Plan: IMPRESSION Pneumonia, left lung, on CXR 09/12, started on rocephin/levaquin empirically --> sputum and blood cultures still pending Sepsis with hypotension, leukocytosis, tachycardia at initial presentation --> improved with IV antibiotics and PRBC; hemodynamics stabilized ABLA secondary to suspected GI bleed; xarelto held and PRBC given 09/12 Moderate to large left pleural effusion 3.6 x 2.4 cm rounded masslike airspace consolidation RLL Suspect CHF with elevated BNP and total body volume overload on exam CKD III, cr 1.8 at admission, ? baseline Hypoxia Thrombocytosis, POA, Plt 515K Hyponatremia, POA, Na 131 today Malnutrition with albumin level of 1.7 (Severe PCM) AAA, PVD Sacral pressure ulcer stage 3 Multiple wounds with wound vac to right hip Paroxysmal A-fib (EF from 2016 was 50-55%) Mild COPD; on 2L HS typically HLD GERD Constipation MERI, Vitamin B12, and folate deficiencies Nonambulatory; left leg paralysis PLAN Admit, inpt status. PCP: Dr. Doyle. Code status: Full code. Pneumonia and sepsis, hypoxia, mod-large pleural effusion, mild COPD -PSI/PORT = 147 points, risk class V (27-29% mortality) -Failed outpatient treatment with cefdinir and azithromycin (09/08-09/12) -received Levaquin IV in Ed but transitioned to rocephin due to interaction with amiodarone; will continue and monitor - Lasix 20 mg IV push x 1 again today and monitor I/Os -sputum cx, urine legionella and strep pneumo all NGTD, continue to monitor -DuoNeb QID -O2 to maintain sats -Hold on IVF support given overload on exam -Discussed case with Dr. Mcpherson again today, will hold on any acute interventions, repeat CXR in AM and obtain swallow study to discuss further goals -may need pulm consult on Saturday 09/15 if ongoing aggressive care planned ABLA secondary to suspected GI bleed -PRBC transfusion x1 unit at arrival, Hb improved to 8.3 today -holding Xarelto -anemia likely contributing to hypotension at presentation -PPI -Hold acutely on endoscopy pending goals of care; if aggressive care planned after speech evaluation will need EGD/C-scope, discussed with Dr. Mcpherson Suspect CHF with elevated BNP and mod-large pleural effusion -check echocardiogram (pending) -continue amiodarone and metoprolol and monitor BP -consider cardiology consultation (Dr. Porras) pending TTE findings - Will redose lasix 20 mg IV x 1 today and monitor Elevated creatinine, hyponatremia -continue to hold ACEI, likely at renal baseline based on records review ( CKD III) - Hypervolemic, lasix 20 mg IV x 1 again today and monitor outputs - Renal panel, Mg in AM for surveillance Multiple wounds, Malnutrition -consulted wound clinic -consult dietitian when diet is advanced -hx MERI, vit B12 and folate deficiencies - Wound vac continued Discussed with bedside RN, patient, surgical team. Hospital Course Summary Disclaimer: The visit summary below is not to be considered part of the above Progress Note. Hospital Course: 09/12/17 IMPRESSION Pneumonia, left lung R/O severe sepsis - MAP <65 ABLA secondary to suspected GI bleed Moderate to large left pleural effusion 3.6 x 2.4 cm rounded masslike airspace consolidation RLL Suspect CHF with elevated BNP Elevated creatinine Hypoxia Thrombocytosis, POA Hyponatremia, POA Malnutrition with albumin level of 1.7 AAA, PVD Sacral pressure ulcer stage 3 Multiple wounds with wound vac to right hip Paroxysmal A-fib (EF from 2016 was 50-55%) HTN Mild COPD; on 2L HS HLD GERD Constipation MERI, Vitamin B12, and folate deficiencies Nonambulatory; left leg paralysis PLAN Admit, inpt status. PCP: Dr. Doyle. Code status: Full code. Pneumonia, R/O severe sepsis, hypoxia, mod-large pleural effusion, mild COPD -PSI/PORT = 147 points, risk class V (27-29% mortality) -Failed outpatient treatment with cefdinir and azithromycin (09/08-09/12) -received Levaquin IV in Ed but with severe interaction with amiodarone will start Rocephin instead -sputum cx, urine legionella and strep pneumo, resp panel -DuoNeb QID -O2 to maintain sats -elect not to give full fluid bolus d/t pleural effusion, hypoxia, and elevated BNP. BP responded well to 500 mL fluid challenge. -consult Dr. Mcpherson to tap pleural effusion. -consider pulm consult on Saturday 09/15. -suspect thrombocytosis is reactive to acute conditions. -may need oncology evaluation with masslike consolidation seen on CT chest ABLA secondary to suspected GI bleed -PRBC transfusion x1 unit. -hold Xarelto -anemia may be contributing to hypotension. -clear liquid diet for now (at [facility] he is on a regular diet and regular liquids) -PPI Suspect CHF with elevated BNP and mod-large pleural effusion -check echocardiogram -EKG -continue amiodarone and metoprolol if BP can tolerate Elevated creatinine, hyponatremia -500 mL NS bolus in ED -hold Lasix, lisinopril Multiple wounds, Malnutrition -consult wound clinic -consult dietitian when diet is advanced -hx MERI, vit B12 and folate deficiencies 09/13/17 11:12 [place] Await surgical opinion regarding possible thoracentesis on Friday. Continue supportive care with IV antibiotics. Lasix 20 mg IV x 1 for volume management. Increased pain medications (stopped tramadol, started norco 7.5 mg 6H prn) Continue clear liquids pending surgical opinion. Surveillance labs for AM on 09/14 Wound team following, continues on wound vac for pressue ulcer. 09/14/17 13:54 [place] Lasix 20 mg IVP x 1 again today for volume overload; breathing improving. MBS planned for evaluation of swallow function tomorrow. Repeat CXR in AM Hold on endoscopy, thoracentesis pending swallow eval and repeat CXR as well as goals of care discussions. Discuss goals of care further when above information available. Continue rocephin and monitor respiratory status. Continue norco for pain control, improved today.
[2017-09-14] MEDS: PRAVASTATIN 40 MG TABLET PO SCH (20:25)
[2017-09-14] MEDS: CEFTRIAXONE 1 G in NS 100 ML IV SCH (20:25)
[2017-09-14] MEDS: TAMSULOSIN 0.4 MG CAPSULE PO SCH (20:25)
[2017-09-14] MEDS: MELATONIN 5 MG TABLET PO SCH (20:26)
[2017-09-14] MEDS: MELATONIN 1 MG TABLET PO SCH (20:26)
[2017-09-15] MEDS: HYDROCODONE/APAP 7.5 MG/325 MG TABLET PO PRN ×5 (00:01→20:02)
[2017-09-15] MEDS: PANTOPRAZOLE 40 MG TABLET PO SCH (07:29)
[2017-09-15] MEDS: POLYETHYL GLYCOL 3350 17gm PACKET PO SCH (08:39)
[2017-09-15] MEDS: SENNA + DOCUSATE TABLET PO SCH ×2 (08:41→21:03)
[2017-09-15] MEDS: MAGNESIUM OXIDE 400 MG TABLET PO SCH (08:41)
[2017-09-15] MEDS: FERROUS SULFATE 324 MG TABLET PO SCH ×2 (08:42→17:20)
[2017-09-15] MEDS: AMIODARONE 200 MG TABLET PO SCH ×2 (08:42→21:00)
[2017-09-15] MEDS: ASCORBIC ACID 500 MG TABLET PO SCH (08:44)
[2017-09-15] MEDS: ALBUTEROL/IPRATROPIUM 2.5mg-0.5mg/3ml NEB AEROSOL SCH ×4 (09:04→19:11)
--- NOTE | 2017-09-15 09:36 | Progress Note ---
DATE 09/14/2017 HISTORY The patient states he is breathing easier today than he was yesterday. He denies any abdominal pain, hematochezia or melena. The patient did request a discussion with his hospitalist today regarding which of his multiple medical problems can be corrected and which ones will probably be permanent problems which are not correctable. The patient is trying to determine the overall direction his medical care should take at this time. He is wondering whether he should have more of a comfort care and hospice care approach to his medical care at this point or whether he wants to continue to endure multiple additional hospitalizations and invasive procedures and more aggressive treatment. Dr. Cisneros did discuss all these issues with the patient today. The plan is to put more aggressive invasive procedures on hold for the time being and get a little more data regarding the patient's medical status over the next 24 hours and then continue this same discussion at that time with a little more medical information.. The patient does state yesterday and again today that the quality of his life has decreased a lot since the abdominal aortic aneurysm repair in June 2017. He has left leg paralysis and left arm swelling and much less mobility. He seems to be having a lot of aspiration and is becoming more and more malnourished. He does not feel like he has been gaining a lot with regard to quality of life in the time since the June 2017 operation. PHYSICAL EXAMINATION VITAL SIGNS: Temperature is 95.7 degrees Fahrenheit oral. Pulse is 68. Respiratory rate is 16. Blood pressure is 103/65. Oxygen saturation is 95% on oxygen at 2 liters per minute by nasal cannula. ABDOMEN: The abdomen is soft and nontender. LABORATORY DATA White blood cell count is 9,200 today with no bands. Hemoglobin is 8.3. Hematocrit is 24.9. Serum sodium is 132. Serum creatinine is 1.4. Serum albumin is 1.8 today. Prealbumin was 5.5 yesterday. IMAGING DATA The CT scan of the abdomen and pelvis performed on 09/13/2017 does show anasarca. IMPRESSION 1. Suspected aspiration. 2. Left lung pneumonia which may be aspiration pneumonia. There is concern about how many of the findings on the 09/08/[address] scan and the 2016 chest x-ray might be due to aspiration. 3. Tiny left pleural effusion demonstrated on 09/12/2017 chest x-ray. 4. Severe protein calorie malnutrition with albumin of 1.8 and prealbumin of 5.5. Some of this may be due to inability to maintain good oral intake due to the dysphagia. 5. Anasarca due to malnutrition and hypoalbuminemia. 6. Severe anemia at the time of admission to the hospital. This is probably multifactorial. Some of this anemia is probably due to blood loss from the time of the June 2017 abdominal aortic aneurysm repair operation. The Hemoccult positive stool which the patient had in the emergency room on 2016 would suggest that the patient might also have a component of gastrointestinal tract blood loss anemia present. 7. Hemoccult positive stool at emergency room on 09/12/2017. 8. Status post sigmoid colon resection with end colostomy formation and closure of distal segment of sigmoid colon (first stage Neo procedure) on 12/22/1993. 9. Status post laparotomy with colostomy closure on 04/10/1994. 10. Paroxysmal atrial fibrillation. 11. Anticoagulation with Xarelto. 12. Congestive heart failure. 13. Hypertension. 14. Hyperlipidemia. 15. Stage 3 chronic kidney disease. 16. Nonambulatory with left leg paralysis. 17. Stage III sacral decubitus ulcer. PLAN 1. The patient is scheduled for a repeat chest x-ray tomorrow. 2. Modified barium swallow study tomorrow with Speech Therapy to evaluate the patient for dysphagia. 3. The patient does plan to have another discussion with hospitalist service tomorrow about the overall direction of his medical care. He is trying to decide whether to proceed with more of a comfort care and hospice approach to his care as opposed to a more aggressive approach. The patient would like to know which of his medical problems are correctable and might have some hope of improving in the future and which of his problems are more permanent problems that he will have for the rest of his life to help him make a decision about this. Plans for any type of invasive procedures are on hold at the present time until this discussion can be held and the overall direction of the medical care of the patient decided upon. If the patient decides on a more aggressive approach beyond hospice care or comfort care, he could have a gastrointestinal tract endoscopy performed at some point during the course of his hospitalization to look for any source for gastrointestinal tract blood loss which could be contributing to the severe anemia which the patient had at the time of admission to the hospital. 4. Continue to hold Xarelto at the present time. MTDD
--- NOTE | 2017-09-15 14:58 | XRay Report ---
Indication: surveillance of effusions, infiltrates PROCEDURE: XR chest 2V: Encounter: Initial Comparison: 09/12/2017 Findings: There is a moderate left pleural effusion that is increased from prior exam. There is mild diffuse interstitial opacity suggesting mild CHF. There is a left subclavian dual-lead pacemaker in place with the leads unchanged in position. Impression: Interval increase in the size of the left pleural effusion with mild CHF. .
--- NOTE | 2017-09-15 16:05 | Wound Care Progress Note ---
Wound Management - Wound Right Buttock Wound Type: Pressure Injury Wound Present on Admission?: Yes Wound Staging: Stage IV Length: 3 Width: 3 Depth: 1 Wound Bed Appearance: Beefy Red Anum Wound Appearance: Bright Red Tunneling: No Undermining: Yes (Circumfrential 5 cm) Drainage Description: Sanguineous Drainage Amount: Moderate Drainage Odor: No Odor Dressing Status: Changed Packing Type: Woundvac Sponge Number of Packing Pieces Removed?: 1 Number of Packing Pieces Placed?: 2 Primary Dressing: Transparent Drape Secondary Dressing: Trac Pad Dressing Change Date: 09/15/17 Dressing Change Time: 16:03 Dressing Change Patient Tolerance: Tolerated Poorly (Pt very resistant to change of postion.) Microbiology: Microbiology 09/12/17 21:07 Sputum, Expectorated Gram Stain - Final 09/12/17 21:07 Sputum, Expectorated Sputum Culture - Final Normal Respiratory Janell Right Ankle Wound Type: Pressure Injury (Right lateral malleous) Wound Present on Admission?: Yes Wound Staging: Stage III Length: 2.2 Width: 2 Depth: 0.3 Wound Bed Appearance: Slough Anum Wound Appearance: Ririe Tunneling: No Undermining: No Drainage Description: Sanguineous Drainage Amount: Small Primary Dressing: Foam Dressing Dressing Change Date: 09/15/17 Dressing Change Time: 16:05 Dressing Change Patient Tolerance: Tolerated Poorly Microbiology: Microbiology 09/12/17 21:07 Sputum, Expectorated Gram Stain - Final 09/12/17 21:07 Sputum, Expectorated Sputum Culture - Final Normal Respiratory Janell Right Meyer Wound Type: Abrasion Wound Present on Admission?: Yes Primary Dressing: Foam Dressing Dressing Change Date: 09/11/17 Microbiology: Microbiology 09/12/17 21:07 Sputum, Expectorated Gram Stain - Final 09/12/17 21:07 Sputum, Expectorated Sputum Culture - Final Normal Respiratory Janell Right Lateral Calf Wound Type: Pressure Injury Wound Staging: Unstageable Length: 3 Width: 8 Depth: 0.1 Wound Bed Appearance: Shiny Anum Wound Appearance: Ririe Tunneling: No Undermining: No Drainage Amount: None Dressing Status: Changed Primary Dressing: Foam Dressing Dressing Change Date: 09/15/17 Dressing Change Time: 16:08 Dressing Change Patient Tolerance: Tolerated Poorly Microbiology: Microbiology 09/12/17 21:07 Sputum, Expectorated Gram Stain - Final 09/12/17 21:07 Sputum, Expectorated Sputum Culture - Final Normal Respiratory Janell Left Upper Calf Wound Type: Pressure Injury Wound Present on Admission?: Yes Wound Staging: Stage III Length: 2.3 Width: 2.3 Depth: 0.2 Wound Bed Appearance: Slough Anum Wound Appearance: Ririe Tunneling: No Undermining: No Drainage Description: Sanguineous Drainage Amount: Moderate Drainage Odor: No Odor Dressing Status: Changed Primary Dressing: Foam Dressing Dressing Change Date: 09/15/17 Dressing Change Time: 16:09 Dressing Change Patient Tolerance: Tolerated Poorly Microbiology: Microbiology 09/12/17 21:07 Sputum, Expectorated Gram Stain - Final 09/12/17 21:07 Sputum, Expectorated Sputum Culture - Final Normal Respiratory Janell Left Lateral Ankle Wound Type: Pressure Injury (Left lateral malleolus) Wound Present on Admission?: Yes Wound Staging: Stage III Length: 2.8 Width: 1.1 Depth: 0.3 Wound Bed Appearance: Slough Anum Wound Appearance: Bright Red Tunneling: No Undermining: No Drainage Description: Serosanguineous Drainage Amount: Moderate Drainage Odor: No Odor Dressing Status: Changed Primary Dressing: Foam Dressing Dressing Change Date: 09/15/17 Dressing Change Time: 16:10 Dressing Change Patient Tolerance: Tolerated Poorly Microbiology: Microbiology 09/12/17 21:07 Sputum, Expectorated Gram Stain - Final 09/12/17 21:07 Sputum, Expectorated Sputum Culture - Final Normal Respiratory Janell Left Toe - 2nd Digit Wound Type: Pressure Injury Wound Present on Admission?: Yes Wound Staging: Stage II Length: 0.5 Width: 0.5 Depth: 0.1 Wound Bed Appearance: Beefy Red Anum Wound Appearance: Bright Red Tunneling: No Undermining: No Drainage Description: Serosanguineous Drainage Amount: Moderate Drainage Odor: No Odor Primary Dressing: Foam Dressing Dressing Change Date: 09/15/17 Dressing Change Time: 16:11 Dressing Change Patient Tolerance: Tolerated Poorly Microbiology: Microbiology 09/12/17 21:07 Sputum, Expectorated Gram Stain - Final 09/12/17 21:07 Sputum, Expectorated Sputum Culture - Final Normal Respiratory Janell Left Lateral Foot Wound Type: Pressure Injury Wound Present on Admission?: Yes Wound Staging: Unstageable (DTI) Primary Dressing: Foam Dressing Dressing Change Date: 12/04/17 (n) Dressing Change Time: 16:12 Microbiology: Microbiology 09/12/17 21:07 Sputum, Expectorated Gram Stain - Final 09/12/17 21:07 Sputum, Expectorated Sputum Culture - Final Normal Respiratory Janell
--- NOTE | 2017-09-15 18:05 | Progress Note ---
- Date 09/15/17 Subjective: Mr. Fu was seen midafternoon. Modified barium swallow was scheduled but subsequently canceled due to radiology schedule and in part because patient could not sit upright. He reports difficulty swallowing because things feel like they stick in the right side of his throat. He denies dyspnea at rest but reports that speaking causes him to become short of breath. He has minimal cough and denied nausea, fever, or difficulty urinating. He's sleeping well and reports having a loose bowel movement earlier today. He initially denied pain but later asked if he could get stronger dose of pain medicine before he went to radiology telling me that everything below his head hurts. He has been taking Paxton 7.5 about 4 times daily. He expressed frustration that he occasionally uses the wrong word speaking and he doesn't understand why. Objective Vital signs: Temperature 98.3 F 09/15/17 15:10 Pulse Rate 65 09/15/17 15:51 Respiratory Rate 20 09/15/17 15:10 Blood Pressure 140/69 H 09/15/17 15:10 Pulse Oximetry 95 09/15/17 15:10 I/O 1010/1050 EXAM General-alert, speech fluent HEENT-PER, conunctiva clear, sclera anicteric, oral membranes Lungs-respirations mildly labored, fair inspiratory effort, anterior breath sounds clear; diminished laterally Cardiac-rhythm regular Abd-soft, nontender, moderately distended, diminished bowel sounds Ext-+1 edema bilateral lower extremities, +2 edema left upper arm; dressings on multiple lower extremity wounds Neuro-diffusely weak Psych-flat affect - Height/Weight/BMI: Height 1.73 m Weight 71.5 kg Body Mass Index 24.7 Results - Labs CBC & Chem 7: 09/15/17 04:02 09/15/17 04:02 Labs: Magnesium 2.6, phosphorus 4.0, albumin 1.7 Microbiology Results: Microbiology 09/12/17 21:07 Sputum, Expectorated Gram Stain -moderate epithelial cells, moderate neutrophils, mixed bacteria 09/12/17 21:07 Sputum, Expectorated Sputum Culture - Final Normal Respiratory Marisela 09/12/17 18:37 Urine Legionella Urinary Antigen -negative 09/12/17 21:18 Urine Streptococcus pneumoniae Antigen - negative - Imaging and Cardiology Chest x-ray Status: image reviewed by me (increased left pleural effusion from admission exam, no discrete focal infiltrate.) Assessment and Plan Assessment and Plan: IMPRESSION Pneumonia, left lung, on CXR 09/12, started on rocephin/levaquin empirically --> sputum and blood cultures negative Sepsis with hypotension, leukocytosis, tachycardia at initial presentation --> improved with IV antibiotics and PRBC; hemodynamics stabilized Dysphagia ABLA secondary to suspected GI bleed; xarelto held and PRBC given 09/12 Moderate left pleural effusion 3.6 x 2.4 cm rounded masslike airspace consolidation RLL CHF with elevated BNP and total body volume overload on exam CKD III, cr 1.8 at admission, ? baseline Hypoxia Thrombocytosis, POA, Plt 515K Hyponatremia, POA, Na 131 today Malnutrition with albumin level of 1.7 (Severe PCM) AAA, PVD Sacral pressure ulcer stage 3 Multiple wounds with wound vac to right hip Paroxysmal A-fib (EF from 2016 was 50-55%) Mild COPD; on 2L HS typically HLD GERD Constipation MERI, Vitamin B12, and folate deficiencies Nonambulatory; left leg paralysis PLAN Admit, inpt status. PCP: Dr. Doyle. Code status: Full code. Pneumonia and sepsis, hypoxia, mod-large pleural effusion, mild COPD -PSI/PORT = 147 points, risk class V (27-29% mortality) -Failed outpatient treatment with cefdinir and azithromycin (09/08-09/12) -Afebrile, on Rocephin (Levaquin 1 in ER) -sputum cx, urine legionella and strep pneumo all negative--likely aspirating/aspiration pneumonitis Dysphasia-for modified barium swallow, discussed with speech therapy ABLA secondary to suspected GI bleed -PRBC transfusion x1 unit at arrival, Hb stable since -holding Xarelto -anemia likely contributing to hypotension at presentation -PPI -Hold acutely on endoscopy pending goals of care; if aggressive care planned after speech evaluation will need EGD/C-scope, discussed with Dr. Mcpherson CHF with elevated BNP and mod pleural effusion/anasarca -check echocardiogram (pending), may require cardiology consult-Dr. Porras. -continue amiodarone and metoprolol and monitor BP -Anticipate additional diuresis-schedule every morning. Elevated creatinine, hyponatremia -continue to hold ACEI, likely at renal baseline based on records review ( CKD III) -Hypervolemic, continue to monitor renal function/electrolytes -Will likely need additional diuresis Multiple wounds, Malnutrition -consulted wound clinic; ? Osteomyelitis-outpatient bone culture positive -consult dietitian when diet is advanced -hx MERI, vit B12 and folate deficiencies - Wound vac continued Discussed with bedside RN, patient, surgical team. DVT Prophylaxis: SCD's GI Prophylaxis: Protonix Resuscitation Status: Full Code Hospital Course Summary Disclaimer: The visit summary below is not to be considered part of the above Progress Note. Hospital Course: 09/12/17 IMPRESSION Pneumonia, left lung R/O severe sepsis - MAP <65 ABLA secondary to suspected GI bleed Moderate to large left pleural effusion 3.6 x 2.4 cm rounded masslike airspace consolidation RLL Suspect CHF with elevated BNP Elevated creatinine Hypoxia Thrombocytosis, POA Hyponatremia, POA Malnutrition with albumin level of 1.7 AAA, PVD Sacral pressure ulcer stage 3 Multiple wounds with wound vac to right hip Paroxysmal A-fib (EF from 2016 was 50-55%) HTN Mild COPD; on 2L HS HLD GERD Constipation MERI, Vitamin B12, and folate deficiencies Nonambulatory; left leg paralysis PLAN Admit, inpt status. PCP: Dr. Doyle. Code status: Full code. Pneumonia, R/O severe sepsis, hypoxia, mod-large pleural effusion, mild COPD -PSI/PORT = 147 points, risk class V (27-29% mortality) -Failed outpatient treatment with cefdinir and azithromycin (09/08-09/12) -received Levaquin IV in Ed but with severe interaction with amiodarone will start Rocephin instead -sputum cx, urine legionella and strep pneumo, resp panel -DuoNeb QID -O2 to maintain sats -elect not to give full fluid bolus d/t pleural effusion, hypoxia, and elevated BNP. BP responded well to 500 mL fluid challenge. -consult Dr. Mcpherson to tap pleural effusion. -consider pulm consult on Saturday 09/15. -suspect thrombocytosis is reactive to acute conditions. -may need oncology evaluation with masslike consolidation seen on CT chest ABLA secondary to suspected GI bleed -PRBC transfusion x1 unit. -hold Xarelto -anemia may be contributing to hypotension. -clear liquid diet for now (at [facility] he is on a regular diet and regular liquids) -PPI Suspect CHF with elevated BNP and mod-large pleural effusion -check echocardiogram -EKG -continue amiodarone and metoprolol if BP can tolerate Elevated creatinine, hyponatremia -500 mL NS bolus in ED -hold Lasix, lisinopril Multiple wounds, Malnutrition -consult wound clinic -consult dietitian when diet is advanced -hx MERI, vit B12 and folate deficiencies 09/13/17 11:12 [place] Await surgical opinion regarding possible thoracentesis on Friday. Continue supportive care with IV antibiotics. Lasix 20 mg IV x 1 for volume management. Increased pain medications (stopped tramadol, started norco 7.5 mg 6H prn) Continue clear liquids pending surgical opinion. Surveillance labs for AM on 09/14 Wound team following, continues on wound vac for pressue ulcer. 09/14/17 13:54 [place] Lasix 20 mg IVP x 1 again today for volume overload; breathing improving. MBS planned for evaluation of swallow function tomorrow. Repeat CXR in AM Hold on endoscopy, thoracentesis pending swallow eval and repeat CXR as well as goals of care discussions. Discuss goals of care further when above information available. Continue rocephin and monitor respiratory status. Continue norco for pain control, improved today. 09/15/17 18:13 Modified barium swallow canceled due to patient's inability to sit upright and radiology schedule. Sputum culture normal marisela, suspect aspiration as cause of acute respiratory symptoms. Hemoglobin stable. Total body fluid overload, will likely need additional diuresis.
[2017-09-15] MEDS: CEFTRIAXONE 1 G in NS 100 ML IV SCH (20:04)
[2017-09-15] MEDS: SALINE FLUSH 10ml SYRINGE IV PRN (20:04)
[2017-09-15] MEDS: PRAVASTATIN 40 MG TABLET PO SCH (21:00)
[2017-09-15] MEDS: TAMSULOSIN 0.4 MG CAPSULE PO SCH (21:03)
[2017-09-15] MEDS: MELATONIN 1 MG TABLET PO SCH (21:03)
[2017-09-15] MEDS: MELATONIN 5 MG TABLET PO SCH (21:03)
[2017-09-16] MEDS: HYDROCODONE/APAP 7.5 MG/325 MG TABLET PO PRN ×5 (01:25→20:28)
[2017-09-16] MEDS: PANTOPRAZOLE 40 MG TABLET PO SCH (07:04)
[2017-09-16] MEDS: ALBUTEROL/IPRATROPIUM 2.5mg-0.5mg/3ml NEB AEROSOL SCH ×4 (07:18→19:16)
[2017-09-16] MEDS: FERROUS SULFATE 324 MG TABLET PO SCH ×2 (09:28→17:18)
[2017-09-16] MEDS: AMIODARONE 200 MG TABLET PO SCH ×2 (09:28→20:59)
[2017-09-16] MEDS: FUROSEMIDE 40 MG TABLET PO SCH (09:28)
[2017-09-16] MEDS: MAGNESIUM OXIDE 400 MG TABLET PO SCH (09:28)
[2017-09-16] MEDS: SENNA + DOCUSATE TABLET PO SCH ×2 (09:29→20:59)
[2017-09-16] MEDS: POLYETHYL GLYCOL 3350 17gm PACKET PO SCH (09:29)
[2017-09-16] MEDS: ASCORBIC ACID 500 MG TABLET PO SCH (09:29)
--- NOTE | 2017-09-16 10:13 | Echocardiogram ---
DATE OF SERVICE 09/15/2017 INDICATION Atrial fibrillation. TECHNICAL QUALITY Technically good 2-D, M-mode, Doppler echocardiographic images were submitted for interpretation. FINDINGS 1. CARDIAC CHAMBERS. All cardiac chamber measurements are normal. Aortic root diameter is normal. RV size and contractility appeared normal. Left atrium measured 3.1 cm. 2. LEFT VENTRICLE. Wall thickness is normal. Wall motion analysis is normal. Systolic function is normal. EF is 62%. 3. VALVES. Aortic valve exhibits mild sclerosis. Valve excursion is normal. Mitral valve exhibits annular calcification. Valve excursion is normal. Tricuspid valve structure and motion appear normal with normal valve excursion. Pacemaker leads are seen in the right atrium and in the right ventricle. A large pleural effusion is seen. 4. DOPPLER. Mild mitral regurgitation. Mild aortic stenosis. Mild to moderate aortic regurgitation. Peak flow velocity of 2.05 m/sec at the aortic valve level, compared with 1.3 m/sec at the LVOT level, mean pressure gradient of only 9 mmHg, peak gradient of 17 mmHg. Aortic valve area 2.12 cm2. Pressure halftime assessment of aortic regurgitation is 508 milliseconds. Mild tricuspid regurgitation is present. Central venous pressure is estimated to be normal. Systolic PA pressure estimated to be 39-44 mmHg, consistent with mild pulmonary hypertension. There appears to be mild RVH present. 5. The patient is in normal sinus rhythm during the study with evidence of mild diastolic dysfunction, grade I/IV. IMPRESSION 1. Normal cardiac chamber size. 2. Normal LV systolic function, EF of 62%, with mild diastolic dysfunction. 3. Sclerotic changes of the aortic and mitral valve, appropriate for age. 4. Very mild aortic stenosis. 5. Mild to moderate aortic regurgitation. 6. Mild tricuspid regurgitation. 7. Mild mitral regurgitation. 8. Mild pulmonary hypertension. 9. Mild RVH. 10. Normal central venous pressure. 11. Large pleural effusion. 12. No evidence of intracardiac masses, thrombi, vegetations or shunts. 13. Pacemaker leads are seen in the right heart. [facility]
--- NOTE | 2017-09-16 15:04 | Fluoroscopy Report ---
Indication:difficulty finishing swallow Procedure:FL barium swallow modified MODIFIED BAR. SWALLOW STUDY: Videofluoroscopy was performed in conjunction with a patient financial representative from speech pathology and a separate report and recommendations will be provided. Varying gradations of barium from thin to solid were administered. There was no aspiration noted with any of the consistencies. Due to the patient's limited mobility, no AP imaging was obtained. Impression: No aspiration seen. Please see the speech pathology report for additional details and recommendations. Fluoroscopy dose: 9.75 mGy (Cumulative air kerma) Ky Byrne RPA/MANUEL performed this under my direct supervision. .
--- NOTE | 2017-09-16 15:49 | Progress Note ---
<Yamileth Alejo - Last Filed: 09/16/17 15:45> - Date 09/16/17 Subjective: Patient seen lying in bed. He was napping, but aroused to my entrance. He reports he is feeling better off and on. He thinks his breathing and cough have improved. He is weak. He just had his barium swallow performed. No CP or n/v. Objective Vital signs: Temperature 95.9 F L 09/16/17 15:33 Pulse Rate 68 09/16/17 15:33 Respiratory Rate 16 09/16/17 15:33 Blood Pressure 117/63 09/16/17 15:33 Pulse Oximetry 97 09/16/17 15:33 Rhythm: Normal Sinus Rhythm Height/Weight/BMI: Height 1.73 m Weight 73.5 kg Body Mass Index 24.7 - Constitutional Present: no acute distress - Routine Respiratory Exam Present: CTA bilaterally. Absent: wheezes Comments: anterior sounds clear. Diminished bilateral bases posteriorly. - Routine Cardiovascular Exam Present: RRR. Absent: murmur - Routine Abdominal Exam Present: soft, normoactive bowel sounds, non distended. Absent: tenderness - Routine Extremities Exam Present: edema (pitting in the LE's, but no swelling in the feet), normal capillary refill Comments: anasarca - Routine Skin Exam Present: dry, warm Comments: multiple dressings on lower legs - Routine Neurological Exam Present: alert, oriented X3, CN II-XII intact - Routine Lymphatic Exam Lymphatic: Absent: adenopathy - Routine Psychiatric Exam Present: cooperative Comments: flat affect Results - Labs CBC & Chem 7: 09/16/17 04:07 09/16/17 04:07 Microbiology Results: Microbiology 09/12/17 21:07 Sputum, Expectorated Gram Stain - Final 09/12/17 21:07 Sputum, Expectorated Sputum Culture - Final Normal Respiratory Marisela 09/12/17 18:37 Urine Legionella Urinary Antigen - Final 09/12/17 21:18 Urine Streptococcus pneumoniae Antigen (M - Final - Imaging and Cardiology barium swallow Additional comments: Date of Exam: 09/16/17 Indication:difficulty finishing swallow Procedure:FL barium swallow modified Videofluoroscopy was performed in conjunction with a sales representative health insurance from speech pathology and a separate report and recommendations will be provided. Varying gradations of barium from thin to solid were administered. There was no aspiration noted with any of the consistencies. Due to the patient's limited mobility, no AP imaging was obtained. Impression: No aspiration seen. Please see the speech pathology report for additional details and recommendations. Assessment and Plan (1) Pneumonia Current visit: Yes Status: Acute Assessment and Plan: IMPRESSION Pneumonia, left lung R/O severe sepsis - MAP <65 ABLA secondary to suspected GI bleed Moderate to large left pleural effusion 3.6 x 2.4 cm rounded masslike airspace consolidation RLL Suspect CHF with elevated BNP Elevated creatinine Hypoxia Thrombocytosis, POA Hyponatremia, POA Malnutrition with albumin level of 1.7 AAA, PVD Sacral pressure ulcer stage 3 Multiple wounds with wound vac to right hip Paroxysmal A-fib (EF 62% 09/15/17) HTN Mild COPD; on 2L HS HLD GERD Constipation MERI, Vitamin B12, and folate deficiencies Nonambulatory; left leg paralysis PLAN Continue ceftriaxone and Duoneb txs for pneumonia. Wt up 3 kg. Give extra 40 of Lasix IV today. Check BMP in am to monitor electrolytes and kidney function. Barium swallow was neg for aspiration. Speech therapy recommendations are pending at this time. Dietary consult to address his malnutrition. Wound team following his wound care. Hospital Course Summary Disclaimer: The visit summary below is not to be considered part of the above Progress Note. Hospital Course: 09/12/17 IMPRESSION Pneumonia, left lung R/O severe sepsis - MAP <65 ABLA secondary to suspected GI bleed Moderate to large left pleural effusion 3.6 x 2.4 cm rounded masslike airspace consolidation RLL Suspect CHF with elevated BNP Elevated creatinine Hypoxia Thrombocytosis, POA Hyponatremia, POA Malnutrition with albumin level of 1.7 AAA, PVD Sacral pressure ulcer stage 3 Multiple wounds with wound vac to right hip Paroxysmal A-fib (EF from 2016 was 50-55%) HTN Mild COPD; on 2L HS HLD GERD Constipation MERI, Vitamin B12, and folate deficiencies Nonambulatory; left leg paralysis PLAN Admit, inpt status. PCP: Dr. Doyle. Code status: Full code. Pneumonia, R/O severe sepsis, hypoxia, mod-large pleural effusion, mild COPD -PSI/PORT = 147 points, risk class V (27-29% mortality) -Failed outpatient treatment with cefdinir and azithromycin (09/08-09/12) -received Levaquin IV in Ed but with severe interaction with amiodarone will start Rocephin instead -sputum cx, urine legionella and strep pneumo, resp panel -DuoNeb QID -O2 to maintain sats -elect not to give full fluid bolus d/t pleural effusion, hypoxia, and elevated BNP. BP responded well to 500 mL fluid challenge. -consult Dr. Mcpherson to tap pleural effusion. -consider pulm consult on Saturday 09/15. -suspect thrombocytosis is reactive to acute conditions. -may need oncology evaluation with masslike consolidation seen on CT chest ABLA secondary to suspected GI bleed -PRBC transfusion x1 unit. -hold Xarelto -anemia may be contributing to hypotension. -clear liquid diet for now (at [facility] he is on a regular diet and regular liquids) -PPI Suspect CHF with elevated BNP and mod-large pleural effusion -check echocardiogram -EKG -continue amiodarone and metoprolol if BP can tolerate Elevated creatinine, hyponatremia -500 mL NS bolus in ED -hold Lasix, lisinopril Multiple wounds, Malnutrition -consult wound clinic -consult dietitian when diet is advanced -hx MERI, vit B12 and folate deficiencies 09/13/17 11:12 [place] Await surgical opinion regarding possible thoracentesis on Friday. Continue supportive care with IV antibiotics. Lasix 20 mg IV x 1 for volume management. Increased pain medications (stopped tramadol, started norco 7.5 mg 6H prn) Continue clear liquids pending surgical opinion. Surveillance labs for AM on 09/14 Wound team following, continues on wound vac for pressue ulcer. 09/14/17 13:54 [place] Lasix 20 mg IVP x 1 again today for volume overload; breathing improving[place] [facility] [place] of swallow function tomorrow. Repeat CXR in AM Hold on endoscopy, thoracentesis pending swallow eval and repeat CXR as well as goals of care discussions. Discuss goals of care further when above information available. Continue rocephin and monitor respiratory status. Continue norco for pain control, improved today. 09/15/17 18:13 Modified barium swallow canceled due to patient's inability to sit upright and radiology schedule. Sputum culture normal marisela, suspect aspiration as cause of acute respiratory symptoms. Hemoglobin stable. Total body fluid overload, will likely need additional diuresis. 09/16/17 16:21 Continue ceftriaxone and Duoneb txs for pneumonia. Wt up 3 kg. Give extra 40 of Lasix IV today. Check BMP in am to monitor electrolytes and kidney function. Barium swallow was neg for aspiration. Speech therapy recommendations are pending at this time. Dietary consult to address his malnutrition. <Cinthia Proctor - Last Filed: 09/16/17 20:30> - Date 09/16/17 Objective Vital signs: Results - Labs CBC & Chem 7: 09/16/17 04:07 09/16/17 04:07 Assessment and Plan (1) Pneumonia Current visit: Yes Status: Acute Assessment and Plan: I have independently evaluated and examined this patient. I reviewed the chart, the patient's history, and the SAFETY GROOVING MACHINE OPERATOR/PA's documented findings as above. We discussed and formulated the assessment and plan as above with additions as below: Mr. Fu was seen with his . Results of modified barium swallow were reviewed with the patient. He continues to describe gagging and feeling as though food stick on the right side of his upper esophagus pointing to an area just above the trachea. He reports that he doesn't have trouble with the first swallow but begins gagging with the second swallow in that the intensity of this response ferries from day-to-day. He additionally reports that back pain intensifies significantly if he raises the head of his bed more than 45 but indicates that pain control has improved since he's been in the hospital with modification in his pain medications. He expressed concern about wounds and wound healing and why no one will tell him why he has the ulcers. He felt like he sleeping well and reports having no nausea or vomiting or heartburn. After some discussion he acknowledged being depressed and anxious. The patient is alert, affect is flat Palpation of the patient's neck is without adenopathy or mass, with swallow a cannot appreciate any fullness Respirations are nonlabored with diminished breath sounds throughout but no extra sounds/wheezing/crackles Abdomen is soft +3 edema left upper extremity, +1 bilateral lower extremities; no edema right upper extremity The patient continues to describe difficulty speaking but voiced his frustrations over a 10 minute period with no difficulty whatsoever with virtually no breaks in speech. When asked what his biggest priorities in managing his current problems were he identified pain control and managing his wounds. Pain medications reviewed-probably patient will benefit from scheduled pain medications rather than when necessary subsequently Percocet has been converted to 2 tablets 4 times a day with OxyIR when necessary to avoid excess Tylenol. Patient was identified that wound control will require offloading (possibly specialty mattress) and improve nutrition. He was told that decubitus ulcers have developed because he is had prolonged period of time in bed with inadequate movement. I told him I am concerned about possible underlying bone infection and that I attempted to reach his managing physician in the wound care clinic today but was unable to do so-will contact her tomorrow when she scheduled to be in wound care. If there is a bone infection IV antibiotics may be needed in attempt to heal the sacral/buttock wound. Modified barium swallow without obvious problem, advised patient we can proceed with EGD to determine if there is a structural abnormality. I am not sure that positioning would permit an esophagram to effectively image his esophagus. Will readdress tomorrow. Advised patient that I believe depressive symptoms are a component of ongoing illness and that treatment would be beneficial. Low-dose sertraline initiated. Complete 5 days Rocephin with today's dose-discontinue at that time. Venous Doppler being obtained left upper extremity due to increased edema in that arm with improvement right arm since admission. Lengthy discussion with patient and his . - Time spent with patient Time with patient PN: other (40 min) Coordination of Care: >50% of visit spent providing counseling/coordination of care - Physician Narriative Physician: Cinthia Proctor MD Hospital Course Summary Disclaimer: The visit summary below is not to be considered part of the above Progress Note.
[2017-09-16] MEDS ORDERED: FUROSEMIDE 40 MG/4 ML INJECTION IVP ONE (16:14)
[2017-09-16] MEDS: CEFTRIAXONE 1 G in NS 100 ML IV SCH (20:29)
[2017-09-16] MEDS: MELATONIN 5 MG TABLET PO SCH (20:59)
[2017-09-16] MEDS: TAMSULOSIN 0.4 MG CAPSULE PO SCH (20:59)
[2017-09-16] MEDS: MELATONIN 1 MG TABLET PO SCH (20:59)
[2017-09-16] MEDS: PRAVASTATIN 40 MG TABLET PO SCH (21:00)
[2017-09-16] MEDS: HYDROCODONE/APAP 7.5 MG/325 MG TABLET PO SCH (21:32)
[2017-09-17] MEDS: Oxycodone *IR* 15 MG TABLET PO PRN ×5 (01:23→20:09)
[2017-09-17] MEDS: PANTOPRAZOLE 40 MG TABLET PO SCH (05:43)
[2017-09-17] MEDS: ALBUTEROL/IPRATROPIUM 2.5mg-0.5mg/3ml NEB AEROSOL SCH ×4 (08:30→19:13)
--- NOTE | 2017-09-17 08:49 | Ultrasound Report ---
Indication: edema, PICC line 2 months ago PROCEDURE: US venous doppler UE LT: Encounter: Initial Comparison: None Technique: Color Doppler duplex and grayscale sonographic imaging of the left upper extremity was performed. FINDINGS: There is no evidence for acute deep venous thrombosis in the left arm. The left internal jugular, subclavian, axillary and paired brachial veins were evaluated; compression and augmentation were applied where possible. In addition, color and pulsed Doppler demonstrate appropriate spontaneous flow, cardiac pulsatility and variation with respiration. IMPRESSION: No evidence of acute DVT in the left upper extremity. .
[2017-09-17] MEDS: MAGNESIUM OXIDE 400 MG TABLET PO SCH (09:30)
[2017-09-17] MEDS: AMIODARONE 200 MG TABLET PO SCH ×2 (09:30→21:25)
[2017-09-17] MEDS: FUROSEMIDE 40 MG TABLET PO SCH (09:30)
[2017-09-17] MEDS: HYDROCODONE/APAP 7.5 MG/325 MG TABLET PO SCH ×4 (09:30→21:25)
[2017-09-17] MEDS: FERROUS SULFATE 324 MG TABLET PO SCH ×2 (09:30→18:01)
[2017-09-17] MEDS: POLYETHYL GLYCOL 3350 17gm PACKET PO SCH (09:30)
[2017-09-17] MEDS: SENNA + DOCUSATE TABLET PO SCH ×2 (09:31→21:24)
[2017-09-17] MEDS: ASCORBIC ACID 500 MG TABLET PO SCH (09:31)
[2017-09-17] MEDS: SERTRALINE 25 MG TABLET PO SCH (09:31)
--- NOTE | 2017-09-17 15:41 | Progress Note ---
DATE 09/17/2017 HISTORY The patient has had some dysphagia since admission to the hospital. He had a modified barium swallow study yesterday which did not show any cause for the dysphagia. The patient has not had any active gastrointestinal tract bleeding observed during this hospitalization. PHYSICAL EXAMINATION VITAL SIGNS: Temperature is 98 degrees Fahrenheit oral. Pulse is 68. Respiratory rate is 24. Blood pressure is 133/61. Oxygen saturation is 94% on oxygen at 3 liters per minute by nasal cannula. ABDOMEN: The abdomen is soft and nontender. LABORATORY DATA Hemoglobin is 8.4 and hematocrit is 25.7 today. IMAGING DATA The patient did have a modified barium swallow study yesterday which did not show any aspiration. The patient also had a venous Doppler ultrasound imaging study of the left upper extremity yesterday which did not show any acute deep vein thrombosis at the left upper extremity. IMPRESSION 1. Severe anemia at the time of admission to the hospital. 2. Hemoccult-positive stool at emergency room on 09/12/2017. 3. Dysphagia. 4. No aspiration demonstrated by modified barium swallow imaging study on 09/16. PATIENT EDUCATION I did talk with the patient today about undergoing esophagogastroduodenoscopy for evaluation of the dysphagia and anemia. The nature of the procedure was described to the patient. Expected benefits were reviewed. Alternatives were reviewed. Potential risks and complications were reviewed. The patient is willing to proceed with esophagogastroduodenoscopy. I did also talk with the patient today about the possibility of undergoing a colonoscopy procedure during this hospitalization for additional evaluation of the anemia. The patient is not willing to have the colonoscopy procedure. It would be difficult for the patient to go through the bowel prep for the colonoscopy procedure with the sacral decubitus ulcer and with other medical problems which he has at this time. The patient does decline to undergo any further colonoscopy procedures. PLAN Esophagogastroduodenoscopy tomorrow for evaluation of dysphagia and anemia. EMA
--- NOTE | 2017-09-17 16:05 | Progress Note ---
- Date 09/17/17 Subjective: Mr. Fu reports the dyspnea is not as bad as prior days and that he has minimal cough other than when he initially awakens. He reports little sleep overnight but is unable to describe what is preventing him from sleeping. He described pain control is 90% better than when he was hospitalized and denied nausea or vomiting. He expressed concern that he hasn't had bowel movement today and is unsure if he had one yesterday (nursing reports smear of stool yesterday). He's had no fever and denies sputum production. Patient reports he' s eating 60-75% of his meals. He is tentatively scheduled for EGD tomorrow and reports that depending on outcome of EGD he may decide to stop active care and focus purely on comfort because he doesn't think he is going to get better. Objective Vital signs: Temperature 98.1 F 09/17/17 15:03 Pulse Rate 67 09/17/17 15:03 Respiratory Rate 18 09/17/17 15:03 Blood Pressure 109/60 09/17/17 15:03 Pulse Oximetry 97 - 3L 09/17/17 15:03 I/O 720/1275 EXAM General-NAD, alert HEENT-conjunctiva clear, conjugate gaze Lungs-respirations nonlabored, fair air flow, right anterior lung field clear, left anterior lung field clear although somewhat diminished lateral left base Cardiac-regular rhythm, S1-S2 Abd-soft, nontender, bowel sounds present Ext-+2 edema left upper extremity, +1 edema bilateral lower extremities Neuro-moving upper extremities spontaneously Psych-flat affect - Rhythm: Normal Sinus Rhythm Height/Weight/BMI: Height 1.73 m Weight 72.5 kg Body Mass Index 24.7 Results - Labs CBC & Chem 7: 09/17/17 04:31 09/17/17 04:31 Labs: S92, L5, M3 Albumin 1.7 Free T4 6.98 Microbiology Results: Microbiology 09/12/17 21:07 Sputum, Expectorated Gram Stain - Final 09/12/17 21:07 Sputum, Expectorated Sputum Culture - Final Normal Respiratory Marisela 09/12/17 18:37 Urine Legionella Urinary Antigen -negative 09/12/17 21:18 Urine Streptococcus pneumoniae Antigen-negative 09/12/17-blood cultures 2 negative after 4 days - Imaging and Cardiology Venous US Status: image reviewed by me (left upper extremity-negative for DVT) Assessment and Plan (1) Pneumonia Current visit: Yes Status: Acute Assessment and Plan: IMPRESSION Pneumonia, left lung-likely aspiration R/O severe sepsis - MAP <65 ABLA secondary to suspected chronic GI blood loss Moderate to large left pleural effusion 3.6 x 2.4 cm rounded masslike airspace consolidation RLL by CT MANAGER PART Suspect CHF with elevated BNP Acute kidney injury-POA, resolved Hypoxia Thrombocytosis, POA Hyponatremia, POA Malnutrition with albumin level of 1.7 AAA, PVD Sacral/right buttock pressure ulcer stage 4, wound VAC Multiple wounds bilateral lower extremities History A-fib (EF from 2016 was 50-55%), on amiodarone HTN Mild COPD; on 2L HS HLD GERD Constipation MERI, Vitamin B12, and folate deficiencies Nonambulatory; left leg paralysis post aneurysm repair Major depression Hypothyroidism-09/17/17 PLAN Again had extensive discussion with the patient regarding multiple concerns and challenges he is facing. Antibiotics completed yesterday after 5 days, chest x-ray in a.m. Ongoing concerns about swallow function-discussed with Dr. Mcpherson, EGD planned tomorrow. Patient does not want to proceed with colonoscopy at this time. TSH depressed and free T4 returned today significantly elevated. May be related to amiodarone use. Patient is clearly apathetic consistent with hyperthyroidism in an elderly patient and hyperthyroidism may impact patient's reported difficulty swallowing and malnutrition. Discussed with Dr. Vitale who will see the patient in consultation. Discussed with Dr. Ruiz this morning, previously reported bone culture was actually tissue culture. Wound care nurse reports decubitus on the right buttock does extend down to the bone however and patient at high risk for osteomyelitis. Unable to perform MRI but will schedule triple phase bone scan for further evaluation. No evidence DVT left upper extremity, localized edema likely positional as patient consistently lies on his left arm. Pain control improving progressively; some constipation with increased narcotic use-MiraLAX increased to 34 g daily with Senokot twice a day and MOM when necessary. Renal function remains stable; nursing confirms improved oral intake. Xarelto remains on hold due to heme positive stools and anemia; consistently in sinus rhythm since arrival however known history atrial fibrillation. Patient continues to discuss possibility of converting to comfort care indicating he'll make his decision tomorrow depending on results of EGD. Patient doesn't want to be bedridden in a usp indefinitely. At this time he clearly states that he does not wish to have resuscitative efforts initiated in the event of cardiac or pulmonary arrest and that he wants natural to be permitted should it occur. DO NOT RESUSCITATE order has subsequently been written at patient's request. Lengthy discussion with patient. - Time spent with patient Time with patient PN: 50 minutes Coordination of Care: >50% of visit spent providing counseling/coordination of care Hospital Course Summary Disclaimer: The visit summary below is not to be considered part of the above Progress Note. Hospital Course: 09/12/17 IMPRESSION Pneumonia, left lung R/O severe sepsis - MAP <65 ABLA secondary to suspected GI bleed Moderate to large left pleural effusion 3.6 x 2.4 cm rounded masslike airspace consolidation RLL Suspect CHF with elevated BNP Elevated creatinine Hypoxia Thrombocytosis, POA Hyponatremia, POA Malnutrition with albumin level of 1.7 AAA, PVD Sacral pressure ulcer stage 3 Multiple wounds with wound vac to right hip Paroxysmal A-fib (EF from 2016 was 50-55%) HTN Mild COPD; on 2L HS HLD GERD Constipation MERI, Vitamin B12, and folate deficiencies Nonambulatory; left leg paralysis PLAN Admit, inpt status. PCP: Dr. Doyle. Code status: Full code. Pneumonia, R/O severe sepsis, hypoxia, mod-large pleural effusion, mild COPD -PSI/PORT = 147 points, risk class V (27-29% mortality) -Failed outpatient treatment with cefdinir and azithromycin (09/08-09/12) -received Levaquin IV in Ed but with severe interaction with amiodarone will start Rocephin instead -sputum cx, urine legionella and strep pneumo, resp panel -DuoNeb QID -O2 to maintain sats -elect not to give full fluid bolus d/t pleural effusion, hypoxia, and elevated BNP. BP responded well to 500 mL fluid challenge. -consult Dr. Mcpherson to tap pleural effusion. -consider pulm consult on Saturday 09/15. -suspect thrombocytosis is reactive to acute conditions. -may need oncology evaluation with masslike consolidation seen on CT chest ABLA secondary to suspected GI bleed -PRBC transfusion x1 unit. -hold Xarelto -anemia may be contributing to hypotension. -clear liquid diet for now (at [facility] he is on a regular diet and regular liquids) -PPI Suspect CHF with elevated BNP and mod-large pleural effusion -check echocardiogram -EKG -continue amiodarone and metoprolol if BP can tolerate Elevated creatinine, hyponatremia -500 mL NS bolus in ED -hold Lasix, lisinopril Multiple wounds, Malnutrition -consult wound clinic -consult dietitian when diet is advanced -hx MERI, vit B12 and folate deficiencies 09/13/17 11:12 [place] Await surgical opinion regarding possible thoracentesis on Friday. Continue supportive care with IV antibiotics. Lasix 20 mg IV x 1 for volume management. Increased pain medications (stopped tramadol, started norco 7.5 mg 6H prn) Continue clear liquids pending surgical opinion. Surveillance labs for AM on 09/14 Wound team following, continues on wound vac for pressue ulcer. 09/14/17 13:54 [place] Lasix 20 mg IVP x 1 again today for volume overload; breathing improving. MBS planned for evaluation of swallow function tomorrow. Repeat CXR in AM Hold on endoscopy, thoracentesis pending swallow eval and repeat CXR as well as goals of care discussions. Discuss goals of care further when above information available. Continue rocephin and monitor respiratory status. Continue norco for pain control, improved today. 09/15/17 18:13 Modified barium swallow canceled due to patient's inability to sit upright and radiology schedule. Sputum culture normal marisela, suspect aspiration as cause of acute respiratory symptoms. Hemoglobin stable. Total body fluid overload, will likely need additional diuresis. 09/16/17 16:21 Continue ceftriaxone and Duoneb txs for pneumonia. Wt up 3 kg. Give extra 40 of Lasix IV today. Check BMP in am to monitor electrolytes and kidney function. Barium swallow was neg for aspiration. Speech therapy recommendations are pending at this time. Dietary consult to address his malnutrition. 09/17/17 Again had extensive discussion with the patient regarding multiple concerns and challenges he is facing. Antibiotics completed yesterday after 5 days, chest x-ray in a.m. Ongoing concerns about swallow function-discussed with Dr. Mcpherson, EGD planned tomorrow. Patient does not want to proceed with colonoscopy at this time. TSH depressed and free T4 returned today significantly elevated. May be related to amiodarone use. Patient is clearly apathetic consistent with hyperthyroidism in an elderly patient and hyperthyroidism may impact patient's reported difficulty swallowing and malnutrition. Discussed with Dr. Vitale who will see the patient in consultation. Discussed with Dr. Ruiz this morning, previously reported bone culture was actually tissue culture. Wound care nurse reports decubitus on the right buttock does extend down to the bone however and patient at high risk for osteomyelitis. Unable to perform MRI but will schedule triple phase bone scan for further evaluation. No evidence DVT left upper extremity, localized edema likely positional as patient consistently lies on his left arm. Pain control improving progressively; some constipation with increased narcotic use-MiraLAX increased to 34 g daily with Senokot twice a day and MOM when necessary. Renal function improved/stable; nursing confirms improved oral intake. Xarelto remains on hold due to heme positive stools and anemia; consistently in sinus rhythm since arrival however known history atrial fibrillation. Patient continues to discuss possibility of converting to comfort care indicating he'll make his decision tomorrow depending on results of EGD. Patient doesn't want to be bedridden in a usp indefinitely. At this time he clearly states that he does not wish to have resuscitative efforts initiated in the event of cardiac or pulmonary arrest and that he wants natural to be permitted should it occur. DO NOT RESUSCITATE order has subsequently been written at patient's request.
--- NOTE | 2017-09-17 17:56 | Consultation ---
DATE OF CONSULTATION 09/17/2017 REASON FOR CONSULTATION Apathetic hyperthyroidism. HISTORY OF PRESENT ILLNESS Mr. Fu is a 77-year-old gentleman with a complicated medical history. In June he underwent an aortic aneurysm repair that left him with a left leg paralysis. He has been unable to stand or ambulate. He developed a decubitus ulcer on his sacrum and hip. These have improved. However, about a week prior to admission he developed difficulty with swallowing liquids and solids as well as dyspnea. He has been found to have a large pleural effusion and in the course of his hospitalization lab testing showed a TSH totally suppressed below 0.02 and free T4 quite elevated at 6.98. He has no prior history of any thyroid disease. He does take amiodarone. He reports occasional palpitations if he awakens from a dream at night but otherwise they never occur during the day. He has noticed some tremor in his hands. Over the past year he says he has lost about 50 pounds. He denies any unusual eye dryness although he sometimes sees floaters. He has had no change of bowel habits. He does have cold intolerance that usually is noticed at nighttime. ALLERGIES Sulfa. REVIEW OF SYSTEMS In addition to the findings mentioned above the patient has had some low-grade fevers and generalized weakness, no change of bowel habits and leg edema. PAST MEDICAL HISTORY Abdominal aortic aneurysm. Peripheral vascular disease. Sacral decubitus ulcer. Paroxysmal atrial fibrillation. Hypertension. COPD. Bilateral small upper lobe pulmonary nodules. Gastroesophageal reflux disease. Iron deficiency anemia. Vitamin B12 and folate deficiencies. Osteoarthritis. Prolonged immobilization. PAST SURGICAL HISTORY Status post several hernia repairs, bowel resection for perforation. Appendectomy. Aortic aneurysm repair in 2004 and again in June 2017. Pacemaker insertion. FAMILY HISTORY Positive for breast cancer, stroke and kidney failure. SOCIAL HISTORY The patient quit smoking 11 years ago after 17 pack years. He does not drink alcohol. CURRENT MEDICATIONS Per EMR. PHYSICAL EXAM VITAL SIGNS: Afebrile with stable vital signs. His pulse rate is noted to be in the 60s and 70s but he is on metoprolol 100 mg b.i.d. GENERAL: Well-developed, thin male in mild respiratory distress. HEENT: Atraumatic, normocephalic. EYES: PERRL. NECK: Without thyromegaly or lymphadenopathy. LUNGS: Decreased breath sounds. HEART: Regular rate and rhythm without premature beats or murmur. ABDOMEN: Normal bowel sounds. Soft without masses, tenderness or organomegaly. EXTREMITIES: Lower leg edema, worse on the left side. SKIN: Warm and dry with a wound VAC on his right hip. NEUROLOGIC: Unable to move left leg. PSYCHIATRIC: Normal affect. Normal thought process. Cooperative with history and physical. LABORATORY TSH less than 0.02. Free T4 6.98. ASSESSMENT Thyrotoxicosis. 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 To achieve more rapid control he should be placed on propylthiouracil which can help reduce the peripheral conversion of T4 to T3 in addition to reducing iodine uptake within the thyroid gland. The etiology of this could be related to his amiodarone therapy which can cause hyperthyroidism by two mechanisms. He could have a Jod-Basedow effect from the iodine content of the drug. He could also have a direct toxicity from the amiodarone itself. In either case, the thionamide should be effective. He is already on a high dose of beta blockade to block the adrenergic symptoms. RECOMMENDATIONS Start PTU 100 mg p.o. q.6h. Follow T4 levels. Thank you very much for asking my assistance in caring for this complicated gentleman. I will follow him along with you while he remains in the hospital. MTDD
[2017-09-17] MEDS: MELATONIN 5 MG TABLET PO SCH (21:24)
[2017-09-17] MEDS: MELATONIN 1 MG TABLET PO SCH (21:24)
[2017-09-17] MEDS: PROPYLTHIOURACIL 50 MG TABLET PO SCH (21:24)
[2017-09-17] MEDS: PRAVASTATIN 40 MG TABLET PO SCH (21:25)
[2017-09-17] MEDS: TAMSULOSIN 0.4 MG CAPSULE PO SCH (21:25)
[2017-09-18] MEDS: Oxycodone *IR* 15 MG TABLET PO PRN ×3 (00:02→11:22)
[2017-09-18] MEDS: PROPYLTHIOURACIL 50 MG TABLET PO SCH ×4 (02:40→21:44)
[2017-09-18] MEDS ORDERED: LIDOCAINE VISCOUS 2% ORAL LIQUID 15ml ONE (06:53)
--- NOTE | 2017-09-18 07:05 | Anesthesia Preoperative Report ---
Anesthesia Preoperative Record - Date and Time Date: 09/18/17 Preoperative Diagnosis: pneumonia,failed outpt,aneimia Proposed Procedure: egd NPO Since Date: 09/17/17 NPO Since Time: 23:00 Allergies/Adverse Reactions: Allergies Allergy/AdvReac Type Severity Reaction Status Date / Time sulfamethoxazole Allergy Unknown Verified 09/12/17 16:41 [From Bactrim] trimethoprim [From Bactrim] Allergy Unknown Verified 09/12/17 16:41 - Vital Signs Vital Signs: Temperature 99.5 F 09/17/17 23:46 Pulse Rate 65 09/18/17 00:00 Respiratory Rate 24 09/17/17 23:46 Blood Pressure 121/65 09/17/17 23:46 Pulse Oximetry 93 09/17/17 23:46 Height and Weight: Height 1.73 m Weight 72.5 kg Body Mass Index 24.7 - Medications Inpatient Medications: Current Medications Acetaminophen (Tylenol) 500 mg PO Q5H PRN PRN Reason: Discomfort Hydrocodone Bitart/Acetaminophen ([place] 7.5/325) 2 tab PO QID [facility] Last Admin: 09/17/17 21:25 Dose: 2 tab Albuterol/Ipratropium (Duoneb) 3 ml AEROSOL RTQID [facility] Last Admin: 09/17/17 19:13 Dose: 3 ml Amiodarone HCl (Pacerone) 200 mg PO BID [facility] Last Admin: 09/17/17 21:25 Dose: 200 mg Ascorbic Acid (Vitamin C) 1,000 mg PO DAILY [facility] Last Admin: 09/17/17 09:31 Dose: 1,000 mg Ferrous Sulfate (Feosol) 324 mg PO BIDBS [facility] Last Admin: 09/17/17 18:01 Dose: 324 mg Furosemide (Lasix) 40 mg PO DAILY [facility] Last Admin: 09/17/17 09:30 Dose: 40 mg Magnesium Hydroxide (Mom) 30 ml PO DAILY PRN PRN Reason: Constipation Magnesium Oxide (Magox) 400 mg PO DAILY [facility] Last Admin: 09/17/17 09:30 Dose: 400 mg Melatonin (Melatonin) 5 mg [address] [facility] Last Admin: 09/17/17 21:24 Dose: 5 mg Melatonin (Melatonin) 1 mg PO HS [facility] Last Admin: 09/17/17 21:24 Dose: 1 mg Metoprolol Tartrate (Lopressor) 100 mg PO BIDBS [facility] Last Admin: 09/17/17 18:01 Dose: 100 mg Ondansetron HCl (Zofran) 4 mg IVP Q6H PRN PRN Reason: Nausea &/or vomiting Oxycodone HCl (Roxicodone *Ir*) 15 mg PO Q4H PRN PRN Reason: Pain Last Admin: 09/18/17 04:31 Dose: 15 mg Pantoprazole Sodium (Protonix Tab) 40 mg PO ACB [facility] Last Admin: 09/17/17 05:43 Dose: 40 mg Polyethylene Glycol (Miralax) 34 gm PO DAILY [facility] Pravastatin Sodium (Pravachol) 80 mg PO HS [facility] Last Admin: 09/17/17 21:25 Dose: 80 mg Propylthiouracil (Ptu) 100 mg PO Q6HR [facility] Last Admin: 09/18/17 02:40 Dose: 100 mg Senna/Docusate Sodium (Senna Plus Tablet) 2 tab PO BID [facility] Last Admin: 09/17/17 21:24 Dose: 2 tab Sertraline HCl (Zoloft) 25 mg PO DAILY [facility] Last Admin: 09/17/17 09:31 Dose: 25 mg Sodium Chloride (Iv Flush) 10 - 80 ml IV PRN PRN PRN Reason: Flushing Last Admin: 09/15/17 20:04 Dose: 10 ml Sodium Chloride (Iv Flush) 10 ml IV PRN PRN PRN Reason: Flushing Sodium Chloride (Normal Saline) 500 ml IV PRN PRN Tamsulosin HCl (Flomax) 0.4 mg PO HS [facility] Last Admin: 09/17/17 21:25 Dose: 0.4 mg Home Medications: Home Medications Medication Instructions Recorded Confirmed Type Pravastatin Sodium 80 mg PO HS #0 10/07/12 09/12/17 History Ascorbic Acid [Vitamin C] 1,000 mg PO DAILY #0 11/14/15 09/12/17 History Pantoprazole Sodium 40 mg PO DAILY #0 11/14/15 09/12/17 History Amiodarone [Pacerone] 200 mg PO BID 06/22/17 09/12/17 History Furosemide [Lasix] 40 mg PO DAILY 06/22/17 09/12/17 History Lisinopril [Prinivil] 5 mg PO DAILY 06/22/17 09/12/17 History Metoprolol Tartrate [Lopressor] 100 mg PO BID 06/22/17 09/12/17 History Tramadol [Ultram] 50 mg PO QID PRN 06/22/17 09/12/17 History Albuterol/Ipratropium [Duoneb] 1 unit AEROSOL QID 09/12/17 09/12/17 History Azithromycin [Zithromax] 250 mg PO DAILY 09/12/17 09/12/17 History Cefdinir 600 mg PO DAILY 09/12/17 09/12/17 History Cholecalciferol (Vitamin D3) 1,000 unit PO DAILY 09/12/17 09/12/17 History [Vitamin D3] Docusate Sodium [Colace] 100 mg PO BID 09/12/17 09/12/17 History Ferrous Sulfate [Iron] 325 mg PO BID 09/12/17 09/12/17 History Magnesium Oxide [Magox 400] 400 mg PO BID 09/12/17 09/12/17 History Melatonin/Pyridoxine HCl (B6) 6 mg PO HS 09/12/17 09/12/17 History [Melatonin 3 mg Tablet] Multivitamin [One Daily 1 each PO DAILY 09/12/17 09/12/17 History Multivitamin] Polyethylene Glycol 3350 17 gm PO DAILY 09/12/17 09/12/17 History Rivaroxaban [Xarelto] 20 mg PO DAILY 09/12/17 09/12/17 History Simethicone 125 mg PO PRN 09/12/17 09/12/17 History Tamsulosin [Flomax] 0.4 mg PO HS 09/12/17 09/12/17 History Is Patient on Beta Gulshan?: Yes Beta Gulshan Last Dose Date/Time: 1800 - Medical History Respiratory: Reports: Pneumonia Cardiovascular: Reports: Hypertension Gastrointestional: Reports: Nausea or Vomiting Present (Pt reports feeling nausea at this time), Other (CONSTIPATION) Neuro/Musculoskeletal: Reports: HX.MS.OSAR, Muscle Weakness - Surgical History Cardiac Surgeries/Treatments: Reports: Pacemaker Respiratory Surgery/Treatments: DENIES: BiPAP Use, CPAP Use GI Surgery/Treatments: Reports: Appendectomy, Hernia Repair, Other (COLON RESECTION) Anesthesia Reactions: None Hx Family Anesthesia Reaction: No - Social History Smoking Status: Former smoker (quit 11 years ago) Packs per day: 2 Pack-years: 17 Substance Use Type: does not use Alcohol Intake Frequency: does not drink - Pertinent Findings Laboratory: CBC and BMP 09/17/17 04:31 09/17/17 04:31 EKG: Sinus Rhythm - Physical Exam Respiratory Exam: Present: lungs clear, bilateral breath sounds equal Cardiovascular Exam: Present: regular rate and rhythm, no murmur - Airway Assessment Teeth: poor dentation (many missing ) Overall Assessment: may be difficult intubation - ASA ASA Score: 3 - Plan Anesthesia: General TIVA, MAC - Discussion Discussion: Discussed risks/options/alternatives of anesthesia and questions answered. Patient consents. Nursing pain assessment noted. Attestation Statement: Prior to the delivery of any anesthetic medication, I examined the patient, developed the plan, obtained the patient's consent and discussed the risk and benefits of the procedure with the patient/guardian. - Additional Information Seen by Anesthesia: Yes
[2017-09-18] MEDS: SALINE FLUSH 10ml SYRINGE IV PRN (07:13)
[2017-09-18] MEDS ORDERED: NS 1,000 ML IV SCH (07:15)
[2017-09-18] MEDS ORDERED: FentaNYL 100 MCG/2 ML INJECTION ONE (07:25)
[2017-09-18] MEDS ORDERED: PROPOFOL 20 ML ONE (07:25)
[2017-09-18] MEDS ORDERED: LIDOCAINE 2% (100mg/5mL) PF 5ml vl ONE (07:25)
[2017-09-18] MEDS ORDERED: BENZOCAINE 20% SPRAY 0.5 ML ONE (07:25)
[2017-09-18] MEDS ORDERED: LIDOCAINE VISCOUS 2% ORAL LIQUID 15ml PO ONE (07:40)
[2017-09-18] MEDS ORDERED: BENZOCAINE 20% SPRAY 0.5 ML MM ONE (07:40)
--- NOTE | 2017-09-18 07:51 | General Surgery Procedure Note ---
Date of Procedure: 09/18/17 Surgeon: Ky Postoperative Diagnosis: Anemia,dysphagia Procedure: EGD Estimated Blood Loss: See Anesthesia Record.
[2017-09-18] MEDS: HYDROCODONE/APAP 7.5 MG/325 MG TABLET PO SCH ×4 (08:58→21:41)
[2017-09-18] MEDS: FERROUS SULFATE 324 MG TABLET PO SCH ×2 (08:58→17:38)
[2017-09-18] MEDS: ASCORBIC ACID 500 MG TABLET PO SCH (08:59)
[2017-09-18] MEDS: SERTRALINE 25 MG TABLET PO SCH (09:00)
[2017-09-18] MEDS: SENNA + DOCUSATE TABLET PO SCH ×2 (09:00→21:45)
[2017-09-18] MEDS: MAGNESIUM OXIDE 400 MG TABLET PO SCH (09:00)
[2017-09-18] MEDS: PANTOPRAZOLE 40 MG TABLET PO SCH (09:00)
[2017-09-18] MEDS: FUROSEMIDE 40 MG TABLET PO SCH (09:01)
[2017-09-18] MEDS: AMIODARONE 200 MG TABLET PO SCH ×2 (09:01→21:42)
[2017-09-18] MEDS: POLYETHYL GLYCOL 3350 17gm PACKET PO SCH (09:01)
--- NOTE | 2017-09-18 09:11 | XRay Report ---
Indication: pneumonia, pleural eff PROCEDURE: XR chest 1V: Encounter: Initial Comparison: September 15, 2017 Findings: Stable left lower lobe consolidation with a small pleural effusion. Right lung is grossly clear. No pneumothorax. Heart size and mediastinal contours are stable. Left cardiac pacemaker. Overlying monitoring leads. Impression: Stable left lower lobe consolidation with small effusion. .
--- NOTE | 2017-09-18 09:54 | Anesthesia Postoperative Note ---
- Date and Time Date: 09/18/17 Time: 08:50 - Status Patient Participated in Evaluation: Patient Participated in Person Vital Signs: Temperature 97.5 F 09/18/17 08:40 Pulse Rate 69 09/18/17 09:10 Respiratory Rate 18 09/18/17 08:40 Blood Pressure 125/67 09/18/17 09:10 Pulse Oximetry 96 09/18/17 09:10 Respiratory Function: Airway Patent Cardiovascular Function: Regular Pulse Paced: paced Mental Status: Semi-Comatose Pain Intensity: 0 Hydration: IV Infusing Complications During Recover: None Apparent - Follow-Up Instructions Instructions: Per Surgeon
[2017-09-18] MEDS: ALBUTEROL/IPRATROPIUM 2.5mg-0.5mg/3ml NEB AEROSOL SCH ×4 (11:35→20:32)
--- NOTE | 2017-09-18 13:20 | Operative Note ---
DATE OF OPERATION 09/18/2017 PREOPERATIVE DIAGNOSES 1. Severe anemia at time of admission to the hospital. 2. Hemoccult positive stool at emergency room on 09/12/2017. 3. Dysphagia. POSTOPERATIVE DIAGNOSES 1. Severe anemia at the time of admission to the hospital. 2. Hemoccult positive stool at emergency room on 09/12/2017. 3. Dysphagia. 4. Retained liquid and solid food contents in the stomach and duodenum found at esophagogastroduodenoscopy today. OPERATION Esophagogastroduodenoscopy. SURGEON Dr. Mcpherson [facility] CLASS 3 FINDINGS Mucosa at the esophagus appeared completely normal throughout the entire length of the esophagus. There was no narrowing or stricture of the esophagus anywhere that would produce any dysphagia. There were no mucosal lesions at the esophagus. There were no esophageal ulcers or erosions. There was no evidence of any neoplastic disease at the esophagus. Gastric mucosa appeared to be normal everywhere. There were no gastric erosions or ulcers found. There did not appear to be any gastritis. There was no evidence of any neoplastic disease at the stomach. The patient did have a quite a bit of solid and liquid retained food contents in the stomach at the time of the procedure today. The pylorus was wide open. There was no mechanical gastric outlet obstruction. There were also retained liquid food contents in the duodenum. There was a little bit of solid food material also retained in the duodenum. There were no duodenal ulcers or erosions. There was no narrowing or blockage in the portion of the duodenum which was able to be examined at esophagogastroduodenoscopy today. No bright red blood or old blood was seen anywhere at the upper gastrointestinal tract. No source for blood loss which would lead to anemia was found at the upper gastrointestinal tract today. DESCRIPTION OF OPERATION The patient was brought to the cystoscopy room. The patient was placed on a cart in the cystoscopy room. Topical anesthesia was achieved at the oropharynx in the usual manner. The patient was then placed in left lateral recumbent position on the cart. The patient was premedicated with intravenous sedation medication administered by the nurse earring maker. The Olympus upper GI endoscope was used. The upper GI endoscope was introduced into the esophagus. The upper GI endoscope was advanced down through the esophagus and into the stomach. Quite a bit of time was spent suctioning liquid from the stomach to try to improve visualization of the gastric mucosa. The upper GI endoscope was retroflexed and gastroesophageal junction was viewed from below. The upper GI endoscope was straightened out. The stomach was examined further. Some liquid in front of the pylorus was then removed by suctioning with the upper GI endoscope. The upper GI endoscope was then advanced through the pylorus into the duodenum. Liquid was suctioned out of the duodenum with the upper GI endoscope. Duodenum was examined. The upper GI endoscope was then withdrawn back into the stomach. Stomach was examined further. The upper GI endoscope was then withdrawn out through the stomach and esophagus and removed from the patient. Findings throughout procedure were as described above. The patient did continue to receive intravenous sedation medication administered by the nurse earring maker throughout the operation. The patient did tolerate the operation well. EMA
--- NOTE | 2017-09-18 13:40 | Progress Note ---
- Date 09/18/17 Subjective: Had EGD this morning with findings of retained food in stomach and duodenum. No findings to explain anemia or dysphagia. Mr Nickie expresses that he doesn't want to be in a hospital for the next 6 months. He wonders what we have done to rule out cancer. He is looking for a plan of care. Objective Vital signs: Temperature 97.3 F 09/18/17 10:25 Pulse Rate 68 09/18/17 11:24 Respiratory Rate 20 09/18/17 11:35 Blood Pressure 96/56 09/18/17 11:24 Pulse Oximetry 95 09/18/17 11:35 Rhythm: Normal Sinus Rhythm Height/Weight/BMI: Height 5 ft 8 in Weight 72.5 kg Body Mass Index 24.7 - Constitutional Present: no acute distress - Routine HEENT Exam Head: Present: normocephalic, atraumatic Eye: Present: EOMI, PERRL - Routine Respiratory Exam Present: CTA bilaterally - Routine Cardiovascular Exam Present: RRR - Routine Abdominal Exam Present: soft, non tender - Routine Extremities Exam Present: no edema - Routine Musculoskeletal Exam Musculoskeletal: Present: no clubbing or cyanosis - Routine Skin Exam Comments: wound vac in place on sacral decubitus. no new rash - Routine Psychiatric Exam Present: normal affect Results - Labs CBC & Chem 7: 09/17/17 04:31 09/17/17 04:31 Microbiology Results: Microbiology 09/12/17 21:07 Sputum, Expectorated Gram Stain - Final 09/12/17 21:07 Sputum, Expectorated Sputum Culture - Final Normal Respiratory Marisela 09/12/17 18:37 Urine Legionella Urinary Antigen - Final 09/12/17 21:18 Urine Streptococcus pneumoniae Antigen (M - Final - ABG Interpretation ABG results: 09/12/17 09/12/17 09/12/17 20:59 20:59 21:14 WBC RBC Hgb Hct MCV MCH MCHC RDW Std Deviation Plt Count MPV Immature Gran % (Auto) Neut % (Auto) Lymph % (Auto) [place] % (Auto) Eos % (Auto) Baso % (Auto) Neut # (Auto) Lymph # (Auto) [place] # (Auto) Eos # (Auto) Baso # (Auto) Abs Immat Gran (auto) Neutrophils % (Manual) Lymphocytes % (Manual) Monocytes % (Manual) Neutrophils # (Manual) Lymphocytes # (Manual) Monocytes # (Manual) Hypochromasia Poikilocytosis Anisocytosis RBC Morph Comment Turbidity Sodium Potassium Chloride Carbon Dioxide Anion Gap BUN Creatinine GFR Calculation BUN/Creatinine Ratio Glucose Calculated Osmolality Calcium Phosphorus Magnesium Icterus Index C-Reactive Protein Albumin Prealbumin Plasma Lactate 0.9 Procalcitonin Free T4 Specimen Hemolysis Ur Collection Type Urine, clean catch Urine Color Yellow Urine Clarity Clear Urine pH 5.5 Ur Specific [place] 1.025 Urine Protein Trace A Urine Glucose (UA) Negative Urine Ketones Negative Urine Occult Blood Negative Urine Nitrate Negative Urine Bilirubin Negative Urine Urobilinogen 0.2 Ur Leukocyte Esterase Negative Urinalysis Comment Microscopic not ind. Adenovirus (PCR) Negative B.parapertussis DNA PCR Negative C. pneumoniae DNA (PCR) Negative Coronavirus OC43 (PCR) Negative Coronavirus HKU1 (PCR) Negative Coronavirus 229E (PCR) Negative Coronavirus NL63 (PCR) Negative Human Metapneumovir PCR Negative Influenza Type A (PCR) Negative Influenza Type B (PCR) Negative M. pneumoniae (PCR) Negative Parainfluenza 1 (PCR) Negative Parainfluenza 2 (PCR) Negative Parainfluenza 3 (PCR) Negative Parainfluenza 4 (PCR) Negative RSV (PCR) Negative Entero/Rhino (PCR) Negative 09/13/17 09/13/17 09/13/17 00:12 04:53 04:53 WBC 10.8 RBC 2.86 L Hgb 8.0 L D 8.1 L Hct 24.4 L D MCV 85.3 MCH 28.3 MCHC 33.2 RDW Std Deviation 47.0 Plt Count 515 H MPV 10.5 Immature Gran % (Auto) 1.4 H Neut % (Auto) 77.8 H Lymph % (Auto) 8.5 L [place] % (Auto) 9.3 H Eos % (Auto) 2.8 Baso % (Auto) 0.2 Neut # (Auto) 8.4 H Lymph # (Auto) 0.9 L [place] # (Auto) 1.0 H Eos # (Auto) 0.3 Baso # (Auto) 0.0 Abs Immat Gran (auto) 0.15 H Neutrophils % (Manual) Lymphocytes % (Manual) Monocytes % (Manual) Neutrophils # (Manual) Lymphocytes # (Manual) Monocytes # (Manual) Hypochromasia Poikilocytosis Anisocytosis RBC Morph Comment Turbidity < 20 Sodium 131 L Potassium 4.5 Chloride 103 Carbon Dioxide 24 Anion Gap 4 L BUN 38.0 H Creatinine 1.8 H GFR Calculation 37 BUN/Creatinine Ratio 21 Glucose 61 L Calculated Osmolality 260 L Calcium 6.7 L Phosphorus Magnesium Icterus Index < 2 C-Reactive Protein 239.3 H Albumin Prealbumin 5.5 L Plasma Lactate Procalcitonin Free T4 Specimen Hemolysis < 15 Ur Collection Type Urine Color Urine Clarity Urine pH Ur Specific [place] Urine Protein Urine Glucose (UA) Urine Ketones Urine Occult Blood Urine Nitrate Urine Bilirubin Urine Urobilinogen Ur Leukocyte Esterase Urinalysis Comment Adenovirus (PCR) B.parapertussis DNA PCR C. pneumoniae DNA (PCR) Coronavirus OC43 (PCR) Coronavirus HKU1 (PCR) Coronavirus 229E (PCR) Coronavirus NL63 (PCR) Human Metapneumovir PCR Influenza Type A (PCR) Influenza Type B (PCR) M. pneumoniae (PCR) Parainfluenza 1 (PCR) Parainfluenza 2 (PCR) Parainfluenza 3 (PCR) Parainfluenza 4 (PCR) RSV (PCR) Entero/Rhino (PCR) 09/13/17 09/14/17 09/14/17 04:53 04:34 04:34 WBC 9.2 RBC 2.91 L Hgb 8.3 L Hct 24.9 L MCV 85.6 MCH 28.5 MCHC 33.3 RDW Std Deviation 47.2 Plt Count 503 H MPV 10.4 Immature Gran % (Auto) Neut % (Auto) Lymph % (Auto) [place] % (Auto) Eos % (Auto) Baso % (Auto) Neut # (Auto) Lymph # (Auto) [place] # (Auto) Eos # (Auto) Baso # (Auto) Abs Immat Gran (auto) Neutrophils % (Manual) Lymphocytes % (Manual) Monocytes % (Manual) Neutrophils # (Manual) Lymphocytes # (Manual) Monocytes # (Manual) Hypochromasia Poikilocytosis Anisocytosis RBC Morph Comment Turbidity < 20 Sodium 132 L Potassium 4.3 Chloride 103 Carbon Dioxide 26 Anion Gap 3 L BUN 32.0 H Creatinine 1.4 D GFR Calculation 49 BUN/Creatinine Ratio 23 Glucose 88 Calculated Osmolality 261 Calcium 6.8 L Phosphorus 4.3 Magnesium 2.8 H Icterus Index < 2 C-Reactive Protein Albumin 1.8 L Prealbumin Plasma Lactate Procalcitonin 0.41 Free T4 Specimen Hemolysis < 15 Ur Collection Type Urine Color Urine Clarity Urine pH Ur Specific [place] Urine Protein Urine Glucose (UA) Urine Ketones Urine Occult Blood Urine Nitrate Urine Bilirubin Urine Urobilinogen Ur Leukocyte Esterase Urinalysis Comment Adenovirus (PCR) B.parapertussis DNA PCR C. pneumoniae DNA (PCR) Coronavirus OC43 (PCR) Coronavirus HKU1 (PCR) Coronavirus 229E (PCR) Coronavirus NL63 (PCR) Human Metapneumovir PCR Influenza Type A (PCR) Influenza Type B (PCR) M. pneumoniae (PCR) Parainfluenza 1 (PCR) Parainfluenza 2 (PCR) Parainfluenza 3 (PCR) Parainfluenza 4 (PCR) RSV (PCR) Entero/Rhino (PCR) 09/15/17 09/15/17 09/16/17 04:02 04:02 04:07 WBC 11.7 H 11.4 H RBC 2.85 L 2.88 L Hgb 8.1 L 8.1 L Hct 24.6 L 24.8 L MCV 86.3 86.1 MCH 28.4 28.1 MCHC 32.9 32.7 RDW Std Deviation 49.0 50.1 Plt Count 493 H 458 H MPV 10.5 10.3 Immature Gran % (Auto) 1.0 H Neut % (Auto) 77.0 H Lymph % (Auto) 8.7 L [place] % (Auto) 11.1 H Eos % (Auto) 2.1 Baso % (Auto) 0.1 Neut # (Auto) 8.8 H Lymph # (Auto) 1.0 [place] # (Auto) 1.3 H Eos # (Auto) 0.2 Baso # (Auto) 0.0 Abs Immat Gran (auto) 0.11 H Neutrophils % (Manual) Lymphocytes % (Manual) Monocytes % (Manual) Neutrophils # (Manual) Lymphocytes # (Manual) Monocytes # (Manual) Hypochromasia Poikilocytosis Anisocytosis RBC Morph Comment Turbidity < 20 Sodium 134 Potassium 4.4 Chloride 103 Carbon Dioxide 28 Anion Gap 3 L BUN 26.0 H Creatinine 1.2 D GFR Calculation 59 BUN/Creatinine Ratio 22 Glucose 83 Calculated Osmolality 262 Calcium 6.8 L Phosphorus 4.0 Magnesium 2.6 H Icterus Index < 2 C-Reactive Protein Albumin 1.7 L Prealbumin Plasma Lactate Procalcitonin Free T4 Specimen Hemolysis < 15 Ur Collection Type Urine Color Urine Clarity Urine pH Ur Specific [place] Urine Protein Urine Glucose (UA) Urine Ketones Urine Occult Blood Urine Nitrate Urine Bilirubin Urine Urobilinogen Ur Leukocyte Esterase Urinalysis Comment Adenovirus (PCR) B.parapertussis DNA PCR C. pneumoniae DNA (PCR) Coronavirus OC43 (PCR) Coronavirus HKU1 (PCR) Coronavirus 229E (PCR) Coronavirus NL63 (PCR) Human Metapneumovir PCR Influenza Type A (PCR) Influenza Type B (PCR) M. pneumoniae (PCR) Parainfluenza 1 (PCR) Parainfluenza 2 (PCR) Parainfluenza 3 (PCR) Parainfluenza 4 (PCR) RSV (PCR) Entero/Rhino (PCR) 09/16/17 09/16/17 09/17/17 04:07 04:07 04:31 WBC 11.8 H RBC 2.97 L Hgb 8.4 L Hct 25.7 L MCV 86.5 MCH 28.3 MCHC 32.7 RDW Std Deviation 52.1 H Plt Count 454 H MPV 10.4 Immature Gran % (Auto) Not performed Neut % (Auto) Not performed Lymph % (Auto) Not performed [place] % (Auto) Not performed Eos % (Auto) Not performed Baso % (Auto) Not performed Neut # (Auto) Not performed Lymph # (Auto) Not performed [place] # (Auto) Not performed Eos # (Auto) Not performed Baso # (Auto) Not performed Abs Immat Gran (auto) Not performed Neutrophils % (Manual) 92.0 H Lymphocytes % (Manual) 5.0 L Monocytes % (Manual) 3.0 Neutrophils # (Manual) 10.9 H Lymphocytes # (Manual) 0.6 L Monocytes # (Manual) 0.4 Hypochromasia 1+ Poikilocytosis 1+ Anisocytosis 1+ RBC Morph Comment Abnormal Turbidity < 20 Sodium 133 L Potassium 4.3 Chloride 104 Carbon Dioxide 27 Anion Gap 2 L BUN 20.0 Creatinine 1.1 GFR Calculation 65 BUN/Creatinine Ratio 18 Glucose 79 Calculated Osmolality 258 L Calcium 6.7 L Phosphorus Magnesium Icterus Index < 2 C-Reactive Protein Albumin Prealbumin Plasma Lactate Procalcitonin Free T4 6.98 H Specimen Hemolysis < 15 Ur Collection Type Urine Color Urine Clarity Urine pH Ur Specific [place] Urine Protein Urine Glucose (UA) Urine Ketones Urine Occult Blood Urine Nitrate Urine Bilirubin Urine Urobilinogen Ur Leukocyte Esterase Urinalysis Comment Adenovirus (PCR) B.parapertussis DNA PCR C. pneumoniae DNA (PCR) Coronavirus OC43 (PCR) Coronavirus HKU1 (PCR) Coronavirus 229E (PCR) Coronavirus NL63 (PCR) Human Metapneumovir PCR Influenza Type A (PCR) Influenza Type B (PCR) M. pneumoniae (PCR) Parainfluenza 1 (PCR) Parainfluenza 2 (PCR) Parainfluenza 3 (PCR) Parainfluenza 4 (PCR) RSV (PCR) Entero/Rhino (PCR) 09/17/17 04:31 WBC RBC Hgb Hct MCV MCH MCHC RDW Std Deviation Plt Count MPV Immature Gran % (Auto) Neut % (Auto) Lymph % (Auto) [place] % (Auto) Eos % (Auto) Baso % (Auto) Neut # (Auto) Lymph # (Auto) [place] # (Auto) Eos # (Auto) Baso # (Auto) Abs Immat Gran (auto) Neutrophils % (Manual) Lymphocytes % (Manual) Monocytes % (Manual) Neutrophils # (Manual) Lymphocytes # (Manual) Monocytes # (Manual) Hypochromasia Poikilocytosis Anisocytosis RBC Morph Comment Turbidity < 20 Sodium 133 L Potassium 4.6 Chloride 104 Carbon Dioxide 28 Anion Gap 1 L BUN 21.0 H Creatinine 1.0 GFR Calculation 72 BUN/Creatinine Ratio 21 Glucose 96 Calculated Osmolality 259 L Calcium 6.9 L Phosphorus 3.7 Magnesium Icterus Index < 2 C-Reactive Protein Albumin 1.7 L Prealbumin Plasma Lactate Procalcitonin Free T4 Specimen Hemolysis < 15 Ur Collection Type Urine Color Urine Clarity Urine pH Ur Specific [place] Urine Protein Urine Glucose (UA) Urine Ketones Urine Occult Blood Urine Nitrate Urine Bilirubin Urine Urobilinogen Ur Leukocyte Esterase Urinalysis Comment Adenovirus (PCR) B.parapertussis DNA PCR C. pneumoniae DNA (PCR) Coronavirus OC43 (PCR) Coronavirus HKU1 (PCR) Coronavirus 229E (PCR) Coronavirus NL63 (PCR) Human Metapneumovir PCR Influenza Type A (PCR) Influenza Type B (PCR) M. pneumoniae (PCR) Parainfluenza 1 (PCR) Parainfluenza 2 (PCR) Parainfluenza 3 (PCR) Parainfluenza 4 (PCR) RSV (PCR) Entero/Rhino (PCR) Assessment and Plan (1) Pneumonia Current visit: Yes Status: Acute Assessment and Plan: IMPRESSION Pneumonia, left lung-likely aspiration R/O severe sepsis - MAP <65 ABLA secondary to suspected chronic GI blood loss Moderate to large left pleural effusion 3.6 x 2.4 cm rounded masslike airspace consolidation RLL by CT UROGYNECOLOGY PHYSICIAN Suspect CHF with elevated BNP Acute kidney injury-POA, resolved Hypoxia Thrombocytosis, POA Hyponatremia, POA Malnutrition with albumin level of 1.7 AAA, PVD Sacral/right buttock pressure ulcer stage 4, wound VAC Multiple wounds bilateral lower extremities History A-fib (EF from 2016 was 50-55%), on amiodarone HTN Mild COPD; on 2L HS HLD GERD Constipation MERI, Vitamin B12, and folate deficiencies Nonambulatory; left leg paralysis post aneurysm repair Major depression Hypothyroidism-09/17/17 PLAN Again had extensive discussion with the patient regarding multiple concerns and challenges he is facing. Antibiotics completed yesterday after 5 days, chest x-ray with persistent LLL consolidation - will obtain CT thorax due to mass-like nature at admission. Ongoing concerns about swallow function-EGD doesn't explain dysphagia, MBS without aspiration. TSH depressed and free T4 returned today significantly elevated. May be related to amiodarone use. Patient is clearly apathetic consistent with hyperthyroidism in an elderly patient and hyperthyroidism may impact patient's reported difficulty swallowing and malnutrition. Dr. Daniel started PTU, will monitor for improvements. Dr. Proctor discussed case with Dr. Ruiz 09/17, previously reported bone culture was actually tissue culture. Wound care nurse reports decubitus on the right buttock does extend down to the bone however and patient at high risk for osteomyelitis. Will schedule triple phase bone scan to further evaluate. Pain control improving progressively Xarelto remains on hold due to heme positive stools and anemia; consistently in sinus rhythm since arrival however known history atrial fibrillation. Patient continues to discuss possibility of converting to comfort care - wanting to gather more information in bone scan and chest ct to make decisions. At this time he clearly states that he does not wish to have resuscitative efforts initiated in the event of cardiac or pulmonary arrest and that he wants natural to be permitted should it occur. DO NOT RESUSCITATE order has subsequently been written at patient's request. Continue to discuss nutrition. Hospital Course Summary Disclaimer: The visit summary below is not to be considered part of the above Progress Note. Hospital Course: 09/12/17 IMPRESSION Pneumonia, left lung R/O severe sepsis - MAP <65 ABLA secondary to suspected GI bleed Moderate to large left pleural effusion 3.6 x 2.4 cm rounded masslike airspace consolidation RLL Suspect CHF with elevated BNP Elevated creatinine Hypoxia Thrombocytosis, POA Hyponatremia, POA Malnutrition with albumin level of 1.7 AAA, PVD Sacral pressure ulcer stage 3 Multiple wounds with wound vac to right hip Paroxysmal A-fib (EF from 2016 was 50-55%) HTN Mild COPD; on 2L HS HLD GERD Constipation MERI, Vitamin B12, and folate deficiencies Nonambulatory; left leg paralysis PLAN Admit, inpt status. PCP: Dr. Doyle. Code status: Full code. Pneumonia, R/O severe sepsis, hypoxia, mod-large pleural effusion, mild COPD -PSI/PORT = 147 points, risk class V (27-29% mortality) -Failed outpatient treatment with cefdinir and azithromycin (09/08-09/12) -received Levaquin IV in Ed but with severe interaction with amiodarone will start Rocephin instead -sputum cx, urine legionella and strep pneumo, resp panel -DuoNeb QID -O2 to maintain sats -elect not to give full fluid bolus d/t pleural effusion, hypoxia, and elevated BNP. BP responded well to 500 mL fluid challenge. -consult Dr. Mcpherson to tap pleural effusion. -consider pulm consult on Saturday 09/15. -suspect thrombocytosis is reactive to acute conditions. -may need oncology evaluation with masslike consolidation seen on CT chest ABLA secondary to suspected GI bleed -PRBC transfusion x1 unit. -hold Xarelto -anemia may be contributing to hypotension. -clear liquid diet for now (at [facility] he is on a regular diet and regular liquids) -PPI Suspect CHF with elevated BNP and mod-large pleural effusion -check echocardiogram -EKG -continue amiodarone and metoprolol if BP can tolerate Elevated creatinine, hyponatremia -500 mL NS bolus in ED -hold Lasix, lisinopril Multiple wounds, Malnutrition -consult wound clinic -consult dietitian when diet is advanced -hx MERI, vit B12 and folate deficiencies 09/13/17 11:12 [place] Await surgical opinion regarding possible thoracentesis on Friday. Continue supportive care with IV antibiotics. Lasix 20 mg IV x 1 for volume management. Increased pain medications (stopped tramadol, started norco 7.5 mg 6H prn) Continue clear liquids pending surgical opinion. Surveillance labs for AM on 09/14 Wound team following, continues on wound vac for pressue ulcer. 09/14/17 13:54 [place] Lasix 20 mg IVP x 1 again today for volume overload; breathing improving. [facility] planned for evaluation of swallow function tomorrow. Repeat CXR in AM Hold on endoscopy, thoracentesis pending swallow eval and repeat CXR as well as goals of care discussions. Discuss goals of care further when above information available. Continue rocephin and monitor respiratory status. Continue norco for pain control, improved today. 09/15/17 18:13 Modified barium swallow canceled due to patient's inability to sit upright and radiology schedule. Sputum culture normal marisela, suspect aspiration as cause of acute respiratory symptoms. Hemoglobin stable. Total body fluid overload, will likely need additional diuresis. 09/16/17 16:21 Continue ceftriaxone and Duoneb txs for pneumonia. Wt up 3 kg. Give extra 40 of Lasix IV today. Check BMP in am to monitor electrolytes and kidney function. Barium swallow was neg for aspiration. Speech therapy recommendations are pending at this time. Dietary consult to address his malnutrition. 09/17/17 Again had extensive discussion with the patient regarding multiple concerns and challenges he is facing. Antibiotics completed yesterday after 5 days, chest x-ray in a.m. Ongoing concerns about swallow function-discussed with Dr. Mcphreson, EGD planned tomorrow. Patient does not want to proceed with colonoscopy at this time. TSH depressed and free T4 returned today significantly elevated. May be related to amiodarone use. Patient is clearly apathetic consistent with hyperthyroidism in an elderly patient and hyperthyroidism may impact patient's reported difficulty swallowing and malnutrition. Discussed with Dr. Daniel who will see the patient in consultation. Discussed with Dr. Ruiz this morning, previously reported bone culture was actually tissue culture. Wound care nurse reports decubitus on the right buttock does extend down to the bone however and patient at high risk for osteomyelitis. Unable to perform MRI but will schedule triple phase bone scan for further evaluation. No evidence DVT left upper extremity, localized edema likely positional as patient consistently lies on his left arm. Pain control improving progressively; some constipation with increased narcotic use-MiraLAX increased to 34 g daily with Senokot twice a day and MOM when necessary. Renal function improved/stable; nursing confirms improved oral intake. Xarelto remains on hold due to heme positive stools and anemia; consistently in sinus rhythm since arrival however known history atrial fibrillation. Patient continues to discuss possibility of converting to comfort care indicating he'll make his decision tomorrow depending on results of EGD. Patient doesn't want to be bedridden in a snf indefinitely. At this time he clearly states that he does not wish to have resuscitative efforts initiated in the event of cardiac or pulmonary arrest and that he wants natural to be permitted should it occur. DO NOT RESUSCITATE order has subsequently been written at patient's request. 09/18/17 13:40 Again had extensive discussion with the patient regarding multiple concerns and challenges he is facing. Antibiotics completed yesterday after 5 days, chest x-ray with persistent LLL consolidation - will obtain CT thorax due to mass-like nature at admission. Ongoing concerns about swallow function-EGD doesn't explain dysphagia, MBS without aspiration. TSH depressed and free T4 returned today significantly elevated. May be related to amiodarone use. Patient is clearly apathetic consistent with hyperthyroidism in an elderly patient and hyperthyroidism may impact patient's reported difficulty swallowing and malnutrition. Dr. Daniel started PTU, will monitor for improvements. Dr. Proctor discussed case with Dr. Ruiz 09/17, previously reported bone culture was actually tissue culture. Wound care nurse reports decubitus on the right buttock does extend down to the bone however and patient at high risk for osteomyelitis. Will schedule triple phase bone scan to further evaluate. Pain control improving progressively Xarelto remains on hold due to heme positive stools and anemia; consistently in sinus rhythm since arrival however known history atrial fibrillation. Patient continues to discuss possibility of converting to comfort care - wanting to gather more information in bone scan and chest ct to make decisions. At this time he clearly states that he does not wish to have resuscitative efforts initiated in the event of cardiac or pulmonary arrest and that he wants natural to be permitted should it occur. DO NOT RESUSCITATE order has subsequently been written at patient's request. Continue to discuss nutrition.
[2017-09-18] MEDS ORDERED: NS 100 ML ONE (13:47)
[2017-09-18] MEDS ORDERED: IOHEXOL 300mg/ml 75ml INJECTION ONE (13:47)
[2017-09-18] MEDS ORDERED: SALINE FLUSH 10ml SYRINGE ONE (13:47)
--- NOTE | 2017-09-18 15:38 | CT Scan Report ---
Indication: LLL consolidation PROCEDURE: CT chest w con: Encounter: Initial Comparison: Chest x-ray from today and CT angiogram of the chest dated September 08, 2017 Technique: Axial CT images were performed through the chest after the administration of intravenous contrast. Coronal and sagittal two-dimensional reformats. Automated Exposure Control and Iterative Reconstruction dose reducing techniques were utilized. Contrast: Omnipaque 300 73 mL Findings: Persistent moderate to large left pleural effusion. There is an irregular mass in the left lower lobe causing abrupt cut off of several left lower lobe bronchi best seen on axial image #38. This is somewhat difficult to assess and measure given the adjacent atelectatic lung but it appears to be 3.1 cm in diameter. Posterior calcifications noted near the lung pleura interface on axial image #44. There is a small right pleural effusion with right basilar atelectasis and areas of right lower lobe pleural thickening. Irregular masslike area of density along the posterior right hilar area seen on axial image #29 with a spiculated mass measuring 3 cm in maximal diameter. The appearance of this lesion is stable from the recent comparison. Small irregular right lower lobe nodule on image #43 measuring 6 mm in size. Persistent region of consolidation and atelectasis along the left major fissure. No pneumothorax. The right-sided airways are widely patent. The thyroid gland is heterogeneous. No axillary adenopathy. Stable small mediastinal lymph nodes. Heart size and great vessels are unchanged. No pericardial effusion. The upper abdomen shows a markedly distended gallbladder and stomach. 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 Artery diameter is 1.3 cm. The dissection extends into the proper hepatic artery. Dissection causes mild stenosis, probably on the order of 50% at its worst. Impression: 1. Bilateral lower lobe masses, left greater than right. These could represent primary malignancies or metastases. PET/CT may be helpful. Bronchoscopic biopsy of the left lower lobe mass may be possible. Alternatively diagnostic and therapeutic thoracentesis could be performed. 2. 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 Current recommendations are for imaging follow-up rather than intervention if the patient is asymptomatic. .
[2017-09-18] MEDS: MELATONIN 5 MG TABLET PO SCH (21:43)
[2017-09-18] MEDS: TAMSULOSIN 0.4 MG CAPSULE PO SCH (21:43)
[2017-09-18] MEDS: MELATONIN 1 MG TABLET PO SCH (21:43)
[2017-09-18] MEDS: PRAVASTATIN 40 MG TABLET PO SCH (21:45)
[2017-09-19] MEDS: PROPYLTHIOURACIL 50 MG TABLET PO SCH ×4 (04:08→21:17)
[2017-09-19] MEDS: PANTOPRAZOLE 40 MG TABLET PO SCH (06:15)
[2017-09-19] MEDS: Oxycodone *IR* 15 MG TABLET PO PRN ×3 (06:31→10:13)
[2017-09-19] MEDS ORDERED: SALINE FLUSH 10ml SYRINGE ONE (06:34)
[2017-09-19] MEDS: ALBUTEROL/IPRATROPIUM 2.5mg-0.5mg/3ml NEB AEROSOL SCH ×4 (07:54→20:10)
[2017-09-19] MEDS: POLYETHYL GLYCOL 3350 17gm PACKET PO SCH (08:06)
[2017-09-19] MEDS: SALINE FLUSH 10ml SYRINGE IV PRN ×3 (08:06→21:18)
[2017-09-19] MEDS: SENNA + DOCUSATE TABLET PO SCH ×2 (08:06→21:17)
[2017-09-19] MEDS: AMIODARONE 200 MG TABLET PO SCH ×2 (08:07→21:29)
[2017-09-19] MEDS: FERROUS SULFATE 324 MG TABLET PO SCH ×2 (08:07→18:10)
[2017-09-19] MEDS: MAGNESIUM OXIDE 400 MG TABLET PO SCH (08:07)
[2017-09-19] MEDS: ASCORBIC ACID 500 MG TABLET PO SCH (08:07)
[2017-09-19] MEDS: SERTRALINE 25 MG TABLET PO SCH (08:07)
[2017-09-19] MEDS: HYDROCODONE/APAP 7.5 MG/325 MG TABLET PO SCH ×2 (08:07→15:15)
[2017-09-19] MEDS: FUROSEMIDE 40 MG TABLET PO SCH (08:08)
--- NOTE | 2017-09-19 08:30 | Endocrinology Progress Note ---
Subjective Principal diagnosis: Hyperthyroidism Interval history: Patient seen 13:15 09/18/17. Still very short of breath. No palpitations. Exam Vital signs: Temperature 98.4 F 09/19/17 07:51 Pulse Rate 71 09/19/17 07:51 Respiratory Rate 18 09/19/17 07:54 Blood Pressure 106/62 09/19/17 07:51 Pulse Oximetry 96 09/19/17 07:54 - Constitutional moderate distress (gasps for breath after every 3-4 words spoken), well developed, cooperative - Routine HEENT Exam Head: Present: normocephalic, atraumatic Eye: Present: EOMI - Routine Neck Exam Absent: thyromegaly - Routine Respiratory Exam Present: dyspnea, distant breath sounds - Routine Cardiovascular Exam Present: RRR - Routine Abdominal Exam Present: soft, normoactive bowel sounds - Routine Extremities Exam Absent: cyanosis - Routine Skin Exam Present: dry, warm - Routine Neurological Exam Present: alert, oriented X3 - Routine Psychiatric Exam Present: normal affect, normal thought process, good insight, good judgment, depressed Assessment and Plan (1) Hyperthyroidism Current visit: Yes Status: Acute Stable on PTU. Will recheck FT4 in 2 more days.
--- NOTE | 2017-09-19 08:39 | Endocrinology Progress Note ---
Subjective Principal diagnosis: Hyperthyroidism Interval history: Less short of breath this morning. No palpitations. Reports that lung cancer was found. He says he is glad that at least he knows what is wrong now. Exam Vital signs: Temperature 98.4 F 09/19/17 07:51 Pulse Rate 71 09/19/17 07:51 Respiratory Rate 18 09/19/17 07:54 Blood Pressure 106/62 09/19/17 07:51 Pulse Oximetry 96 09/19/17 07:54 - Constitutional mild distress, well developed - Routine HEENT Exam Head: Present: normocephalic, atraumatic Eye: Present: EOMI - Routine Neck Exam Absent: thyromegaly - Routine Respiratory Exam Present: dyspnea - Routine Cardiovascular Exam Present: RRR - Routine Abdominal Exam Present: normoactive bowel sounds - Routine Extremities Exam Absent: edema - Routine Skin Exam Present: dry, warm - Routine Neurological Exam Present: alert, oriented X3 - Routine Psychiatric Exam Present: normal affect, normal thought process, cooperative, good insight, good judgment Assessment and Plan (1) Hyperthyroidism Current visit: Yes Status: Acute Stable on PTU. Will get FT4 on Friday to assess progress. Once controlled, should switch to methimazole for long-term.
--- NOTE | 2017-09-19 10:30 | Nuclear Medicine Report ---
Indication: Evaluate for osteomyelitis, sacral decubitus ulcer PROCEDURE: NM bone 3 phase: Encounter: Initial Comparison: CT abdomen and pelvis dated September 13, 2017 Technique: 26.3 mCi of Tc-99m MDP was administered intravenously. Anterior and posterior planar spot images of the pelvis were obtained in the arterial, blood pool and delayed phases. Lateral projections were performed in the blood pool and delayed phases FINDINGS: The scan demonstrates the expected normal biodistribution for the radiotracer. No areas of abnormal uptake seen on the arterial phase imaging. There is some motion artifact. No focal areas of uptake seen on the blood pool phase imaging. Degenerative uptake in the hips noted on the delayed phase images. Uptake in the area of the patient's wound VAC also noted. No uptake seen in the sacrococcygeal region of clinical concern. Impression: No bone scan evidence for osteomyelitis. .
--- NOTE | 2017-09-19 12:36 | General Surgery Procedure Note ---
Date of Procedure: 09/19/17 Surgeon: Ky Postoperative Diagnosis: Left pleural effusion Procedure: Left thoracentesis Estimated Blood Loss: See Anesthesia Record.
--- NOTE | 2017-09-19 12:40 | XRay Report ---
Indication: post Thoracentesis PROCEDURE: XR chest post-procedure 1V: Encounter: Initial Comparison: Chest x-ray dated September 18, 2017 Findings: Interval left thoracentesis. No chronically significant pneumothorax identified. Improved aeration of the left lower lobe. Small remaining pleural effusions. Right lung is stable in appearance. Heart size and mediastinal contours are unchanged. Impression: No pneumothorax. .
--- NOTE | 2017-09-19 13:13 | Ultrasound Report ---
Indication: procedure PROCEDURE: US thoracentesis/para nocharge: Encounter: Initial Comparison: CT chest from yesterday Technique/Findings/ Impression: Grayscale imaging of the left chest was performed to assist Dr. Mcpherson in performing a thoracentesis. Preprocedure imaging shows a large volume of pleural fluid. Postthoracentesis only a small volume remains. Reportedly 1400 mL was removed. .
--- NOTE | 2017-09-19 15:16 | Progress Note ---
- Date 09/19/17 Subjective: Patient decided to undergo thoracentesis today and Dr. Mcpherson was able to get 1400cc out. He said it was rather clear yellow fluid. Patient states his pain is not improved overall and wants to optimize his oral regimen. Objective Vital signs: Temperature 98.4 F 09/19/17 07:51 Pulse Rate 68 09/19/17 14:52 Respiratory Rate 22 09/19/17 13:10 Blood Pressure 102/59 09/19/17 14:52 Pulse Oximetry 97 09/19/17 14:52 Rhythm: Normal Sinus Rhythm Height/Weight/BMI: Height 5 ft 8 in Weight 73.7 kg Body Mass Index 24.7 - Constitutional Present: no acute distress - Routine Respiratory Exam Comments: diminished in bases - Routine Cardiovascular Exam Present: RRR - Routine Abdominal Exam Present: soft, normoactive bowel sounds, non distended, non tender - Routine Extremities Exam Present: no edema - Routine Skin Exam Comments: no new rash - Routine Psychiatric Exam Present: normal affect Results - Labs CBC & Chem 7: 09/19/17 04:24 09/19/17 04:24 Microbiology Results: Microbiology 09/19/17 12:15 Thoracic Fluid Gram Stain - Final 09/19/17 12:15 Thoracic Fluid Body Fluid Culture - Preliminary Culture Initiated - Results Pending 09/12/17 21:07 Sputum, Expectorated Gram Stain - Final 09/12/17 21:07 Sputum, Expectorated Sputum Culture - Final Normal Respiratory Janell 09/12/17 18:37 Urine Legionella Urinary Antigen - Final 09/12/17 21:18 Urine Streptococcus pneumoniae Antigen (M - Final Assessment and Plan (1) Pneumonia Current visit: Yes Status: Acute Assessment and Plan: IMPRESSION Pneumonia, left lung-likely aspiration R/O severe sepsis - MAP <65 ABLA secondary to suspected chronic GI blood loss Moderate to large left pleural effusion 3.6 x 2.4 cm rounded masslike airspace consolidation RLL by CT 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 Suspect CHF with elevated BNP Acute kidney injury-POA, resolved Hypoxia Thrombocytosis, POA Hyponatremia, POA Malnutrition with albumin level of 1.7 AAA, PVD Sacral/right buttock pressure ulcer stage 4, wound VAC Multiple wounds bilateral lower extremities History A-fib (EF from 2016 was 50-55%), on amiodarone HTN Mild COPD; on 2L HS HLD GERD Constipation MERI, Vitamin B12, and folate deficiencies Nonambulatory; left leg paralysis post aneurysm repair Major depression Hypothyroidism-09/17/17 PLAN Antibiotics completed 09/[address] chest 09/18/17 showed likely bilateral (left > right) malignant masses s/p thoracentesis today - cultures and pathology pending WBC up today, but afebrile - monitor, could have post-obstructive process 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 Akilah Briscoe who advised conservative care with asa and statin. Will start asa today - monitor h/h closely. F/u Dr Briscoe in [address] scan. Hyperthyroidism - on PTU, Dr. Daniel following and will recheck thyroid friday. Plan for maintenance methimazole. Dr. Proctor discussed case with Dr. Ruiz 09/17, previously reported bone culture was actually tissue culture. Wound care nurse reports decubitus on the right buttock does extend down to the bone however and patient at high risk for osteomyelitis. Bone scan negative for osteo. Change to scheduled percocet with prn morphine for pain Xarelto remains on hold due to heme positive stools and anemia; consistently in sinus rhythm since arrival however known history atrial fibrillation. Ongoing concerns about swallow function-EGD doesn't explain dysphagia, MBS without aspiration. Patient continues to discuss possibility of converting to comfort care - waiting for results of thoracentesis - patient is aware that a negative result still doesn't rule out malignancy. Also aware that he is likely not a candidate for treatment in the face of cancer. DNR. Continue to discuss nutrition. Hospital Course Summary Disclaimer: The visit summary below is not to be considered part of the above Progress Note. Hospital Course: 09/12/17 IMPRESSION Pneumonia, left lung R/O severe sepsis - MAP <65 ABLA secondary to suspected GI bleed Moderate to large left pleural effusion 3.6 x 2.4 cm rounded masslike airspace consolidation RLL Suspect CHF with elevated BNP Elevated creatinine Hypoxia Thrombocytosis, POA Hyponatremia, POA Malnutrition with albumin level of 1.7 AAA, PVD Sacral pressure ulcer stage 3 Multiple wounds with wound vac to right hip Paroxysmal A-fib (EF from 2016 was 50-55%) HTN Mild COPD; on 2L HS HLD GERD Constipation MERI, Vitamin B12, and folate deficiencies Nonambulatory; left leg paralysis PLAN Admit, inpt status. PCP: Dr. Doyle. Code status: Full code. Pneumonia, R/O severe sepsis, hypoxia, mod-large pleural effusion, mild COPD -PSI/PORT = 147 points, risk class V (27-29% mortality) -Failed outpatient treatment with cefdinir and azithromycin (09/08-09/12) -received Levaquin IV in Ed but with severe interaction with amiodarone will start Rocephin instead -sputum cx, urine legionella and strep pneumo, resp panel -DuoNeb QID -O2 to maintain sats -elect not to give full fluid bolus d/t pleural effusion, hypoxia, and elevated BNP. BP responded well to 500 mL fluid challenge. -consult Dr. Mcpherson to tap pleural effusion. -consider pulm consult on Saturday 09/15. -suspect thrombocytosis is reactive to acute conditions. -may need oncology evaluation with masslike consolidation seen on CT chest ABLA secondary to suspected GI bleed -PRBC transfusion x1 unit. -hold Xarelto -anemia may be contributing to hypotension. -clear liquid diet for now (at [facility] he is on a regular diet and regular liquids) -PPI Suspect CHF with elevated BNP and mod-large pleural effusion -check echocardiogram -EKG -continue amiodarone and metoprolol if BP can tolerate Elevated creatinine, hyponatremia -500 mL NS bolus in ED -hold Lasix, lisinopril Multiple wounds, Malnutrition -consult wound clinic -consult dietitian when diet is advanced -hx MERI, vit B12 and folate deficiencies 09/13/17 11:12 [place] Await surgical opinion regarding possible thoracentesis on Friday. Continue supportive care with IV antibiotics. Lasix 20 mg IV x 1 for volume management. Increased pain medications (stopped tramadol, started norco 7.5 mg 6H prn) Continue clear liquids pending surgical opinion. Surveillance labs for AM on 09/14 Wound team following, continues on wound vac for pressue ulcer. 09/14/17 13:54 [place] Lasix 20 mg IVP x 1 again today for volume overload; breathing improving. [facility] planned for evaluation of swallow function tomorrow. Repeat CXR in AM Hold on endoscopy, thoracentesis pending swallow eval and repeat CXR as well as goals of care discussions. Discuss goals of care further when above information available. Continue rocephin and monitor respiratory status. Continue norco for pain control, improved today. 09/15/17 18:13 Modified barium swallow canceled due to patient's inability to sit upright and radiology schedule. Sputum culture normal janell, suspect aspiration as cause of acute respiratory symptoms. Hemoglobin stable. Total body fluid overload, will likely need additional diuresis. 09/16/17 16:21 Continue ceftriaxone and Duoneb txs for pneumonia. Wt up 3 kg. Give extra 40 of Lasix IV today. Check BMP in am to monitor electrolytes and kidney function. Barium swallow was neg for aspiration. Speech therapy recommendations are pending at this time. Dietary consult to address his malnutrition. 09/17/17 Again had extensive discussion with the patient regarding multiple concerns and challenges he is facing. Antibiotics completed yesterday after 5 days, chest x-ray in a.m. Ongoing concerns about swallow function-discussed with Dr. Mcpherson, EGD planned tomorrow. Patient does not want to proceed with colonoscopy at this time. TSH depressed and free T4 returned today significantly elevated. May be related to amiodarone use. Patient is clearly apathetic consistent with hyperthyroidism in an elderly patient and hyperthyroidism may impact patient's reported difficulty swallowing and malnutrition. Discussed with Dr. Daniel who will see the patient in consultation. Discussed with Dr. Ruiz this morning, previously reported bone culture was actually tissue culture. Wound care nurse reports decubitus on the right buttock does extend down to the bone however and patient at high risk for osteomyelitis. Unable to perform MRI but will schedule triple phase bone scan for further evaluation. No evidence DVT left upper extremity, localized edema likely positional as patient consistently lies on his left arm. Pain control improving progressively; some constipation with increased narcotic use-MiraLAX increased to 34 g daily with Senokot twice a day and MOM when necessary. Renal function improved/stable; nursing confirms improved oral intake. Xarelto remains on hold due to heme positive stools and anemia; consistently in sinus rhythm since arrival however known history atrial fibrillation. Patient continues to discuss possibility of converting to comfort care indicating he'll make his decision tomorrow depending on results of EGD. Patient doesn't want to be bedridden in a halfway indefinitely. At this time he clearly states that he does not wish to have resuscitative efforts initiated in the event of cardiac or pulmonary arrest and that he wants natural to be permitted should it occur. DO NOT RESUSCITATE order has subsequently been written at patient's request. 09/18/17 13:40 Again had extensive discussion with the patient regarding multiple concerns and challenges he is facing. Antibiotics completed yesterday after 5 days, chest x-ray with persistent LLL consolidation - will obtain CT thorax due to mass-like nature at admission. Ongoing concerns about swallow function-EGD doesn't explain dysphagia, MBS without aspiration. TSH depressed and free T4 returned today significantly elevated. May be related to amiodarone use. Patient is clearly apathetic consistent with hyperthyroidism in an elderly patient and hyperthyroidism may impact patient's reported difficulty swallowing and malnutrition. Dr. Daniel started PTU, will monitor for improvements. Dr. Proctor discussed case with Dr. Ruiz 09/17, previously reported bone culture was actually tissue culture. Wound care nurse reports decubitus on the right buttock does extend down to the bone however and patient at high risk for osteomyelitis. Will schedule triple phase bone scan to further evaluate. Pain control improving progressively Xarelto remains on hold due to heme positive stools and anemia; consistently in sinus rhythm since arrival however known history atrial fibrillation. Patient continues to discuss possibility of converting to comfort care - wanting to gather more information in bone scan and chest ct to make decisions. At this time he clearly states that he does not wish to have resuscitative efforts initiated in the event of cardiac or pulmonary arrest and that he wants natural to be permitted should it occur. DO NOT RESUSCITATE order has subsequently been written at patient's request. Continue to discuss nutrition. 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 Akilah Briscoe who advised conservative care with asa and statin. Will start asa today - monitor h/h closely. F/u Dr Briscoe in [address] scan. Hyperthyroidism - on PTU, Dr. Daniel following and will recheck thyroid friday. Plan for maintenance methimazole. Dr. Proctor discussed case with Dr. Ruiz 09/17, previously reported bone culture was actually tissue culture. Wound care nurse reports decubitus on the right buttock does extend down to the bone however and patient at high risk for osteomyelitis. Bone scan negative for osteo. Change to scheduled percocet with prn morphine for pain Xarelto remains on hold due to heme positive stools and anemia; consistently in sinus rhythm since arrival however known history atrial fibrillation. Ongoing concerns about swallow function-EGD doesn't explain dysphagia, MBS without aspiration. Patient continues to discuss possibility of converting to comfort care - waiting for results of thoracentesis - patient is aware that a negative result still doesn't rule out malignancy. Also aware that he is likely not a candidate for treatment in the face of cancer. DNR. Continue to discuss nutrition.
[2017-09-19] MEDS: MORPHINE SULFATE 2mg INJECTION IVP PRN (15:27)
--- NOTE | 2017-09-19 16:17 | Wound Care Progress Note ---
Wound Management - Wound Right Medial Sacrum Wound Type: Pressure Injury Wound Present on Admission?: Yes Wound Staging: Stage IV Wound Bed Appearance: Beefy Red Anum Wound Appearance: Dark Red, Purple Drainage Description: Serosanguineous Drainage Amount: Moderate Dressing Status: Changed Packing Type: Woundvac Sponge Number of Packing Pieces Removed?: 1 Number of Packing Pieces Placed?: 2 Primary Dressing: Transparent Drape Secondary Dressing: Trac Pad Dressing Change Date: 09/19/17 Dressing Change Time: 16:17 Dressing Change Patient Tolerance: Tolerated Well Microbiology: Microbiology 09/19/17 12:15 Thoracic Fluid Gram Stain - Final 09/19/17 12:15 Thoracic Fluid Body Fluid Culture - Preliminary Culture Initiated - Results Pending
[2017-09-19] MEDS: OXYCODONE/APAP 7.5 MG/325 MG TABLET PO SCH ×2 (18:11→21:17)
[2017-09-19] MEDS: MELATONIN 1 MG TABLET PO SCH (21:16)
[2017-09-19] MEDS: PRAVASTATIN 40 MG TABLET PO SCH (21:16)
[2017-09-19] MEDS: TAMSULOSIN 0.4 MG CAPSULE PO SCH (21:16)
[2017-09-19] MEDS: MELATONIN 5 MG TABLET PO SCH (21:17)
[2017-09-20] MEDS: PROPYLTHIOURACIL 50 MG TABLET PO SCH ×4 (02:38→20:25)
[2017-09-20] MEDS: OXYCODONE/APAP 7.5 MG/325 MG TABLET PO SCH ×4 (02:38→21:52)
[2017-09-20] MEDS: PANTOPRAZOLE 40 MG TABLET PO SCH (05:40)
[2017-09-20] MEDS: ALBUTEROL/IPRATROPIUM 2.5mg-0.5mg/3ml NEB AEROSOL SCH ×4 (06:42→19:51)
[2017-09-20] MEDS: AMIODARONE 200 MG TABLET PO SCH ×2 (08:48→20:25)
[2017-09-20] MEDS: FERROUS SULFATE 324 MG TABLET PO SCH ×2 (08:48→18:03)
[2017-09-20] MEDS: POLYETHYL GLYCOL 3350 17gm PACKET PO SCH (08:48)
[2017-09-20] MEDS: MAGNESIUM OXIDE 400 MG TABLET PO SCH (08:48)
[2017-09-20] MEDS: SENNA + DOCUSATE TABLET PO SCH ×2 (08:48→20:26)
[2017-09-20] MEDS: ASPIRIN 81 MG CHEWABLE TABLET PO SCH (08:49)
[2017-09-20] MEDS: ASCORBIC ACID 500 MG TABLET PO SCH (08:49)
[2017-09-20] MEDS: FUROSEMIDE 40 MG TABLET PO SCH (08:49)
[2017-09-20] MEDS: SERTRALINE 25 MG TABLET PO SCH (08:52)
--- NOTE | 2017-09-20 11:32 | Procedure Note ---
DATE OF PROCEDURE 09/19/2017 DIAGNOSIS BEFORE PROCEDURE Left pleural effusion. DIAGNOSIS AFTER PROCEDURE Left pleural effusion. PROCEDURE Ultrasound-guided left thoracentesis. SURGEON Dr. Mcpherson ANESTHESIA Local. FINDINGS The patient did have a left pleural effusion. This was demonstrated by chest x- ray and chest CT scan performed before the procedure. This was also demonstrated by chest sonography performed immediately before the procedure. The patient did have a total of 1400 mL of fluid removed from the left pleural space at thoracentesis today. The pleural effusion fluid was serous and had a yellow color. The fluid did not appear to be purulent. The fluid did not appear to be milky. The fluid did not appear to be bloody. Chest sonography performed after the left thoracentesis showed a decrease in the left pleural effusion. Chest x-ray performed after the thoracentesis did appear to show improvement of the left pleural effusion. The chest x-ray did not show any left pneumothorax. This was a portable upright chest x-ray. DESCRIPTION OF PROCEDURE The patient was placed in a sitting position on a cart in the endoscopy room at [facility]. Chest sonography of the left pleural cavity was performed immediately before the procedure. A site for thoracentesis was selected with use of the ultrasound machine. The site was marked at the left posterior chest wall with a skin marker pen. The left posterior chest wall was prepped with ChloraPrep solution. Sterile drapes were placed. The skin, subcutaneous tissue, chest wall and parietal pleura were infiltrated with 1% Xylocaine without epinephrine at the thoracentesis site. A [employer] brand thoracentesis kit was used. A small incision was made in the skin with scalpel at the thoracentesis site. The thoracentesis catheter was introduced through the chest wall into the pleural cavity at the thoracentesis site. Pleural effusion fluid was able to be aspirated out of the pleural space as soon as the catheter was advanced through the chest wall into the pleural space. The metal needle was withdrawn from the thoracentesis catheter and the catheter was advanced further into the pleural space. A total of 1400 mL of pleural effusion fluid was aspirated from the left pleural space with a syringe. The thoracentesis catheter was withdrawn from the left pleural space when no further fluid could be aspirated. The entire procedure was performed using sterile technique. The procedure was tolerated well by the patient. The ultrasound machine was again used to examine the left pleural space after the procedure with findings as described above. A portable upright chest x-ray was performed after the procedure with findings as described above. The small incision at the left side of the back was closed with Dermabond. The pleural effusion fluid was sent to the laboratory for cytology studies as well as additional studies including cell count with differential, amylase, LDH, specific gravity, glucose, protein, acid-fast bacilli culture and smear, bacterial culture with Gram stain, pH and fungal culture. [facility]
[2017-09-20] MEDS: SALINE FLUSH 10ml SYRINGE IV PRN ×2 (13:09→20:24)
[2017-09-20] MEDS: MORPHINE SULFATE 2mg INJECTION IVP PRN ×2 (13:09→20:30)
[2017-09-20] MEDS ORDERED: BISACODYL 10 MG SUPPOSITORY RECTALLY PRN (13:27)
--- NOTE | 2017-09-20 14:03 | Progress Note ---
<Yamileth Alejo - Last Filed: 09/20/17 14:00> - Date 09/20/17 Subjective: Patient is seen lying in bed. He feels that he can breathe better since the thoracentesis yesterday. He doesn't have much of an appetite. Is not working with therapy. C/o pain in his sacral area and hips and ankles. Objective Vital signs: Temperature 98.1 F 09/20/17 12:00 Pulse Rate 69 09/20/17 12:00 Respiratory Rate 24 09/20/17 12:00 Blood Pressure 107/55 09/20/17 12:00 Pulse Oximetry 95 09/20/17 12:00 Rhythm: Normal Sinus Rhythm Height/Weight/BMI: Height 1.73 m Weight 72.1 kg Body Mass Index 24.7 - Constitutional Present: no acute distress, well developed - Routine Respiratory Exam Present: decreased breath sounds, CTA bilaterally, wheezes, diminished air movement - Routine Cardiovascular Exam Present: RRR. Absent: murmur - Routine Abdominal Exam Present: soft, normoactive bowel sounds, non distended. Absent: tenderness - Routine Extremities Exam Present: edema (2-3+ b/l entire legs to feet and in L arm), normal capillary refill - Routine Skin Exam Present: dry, warm - Routine Neurological Exam Present: alert. Absent: altered mental status - Routine Lymphatic Exam Lymphatic: Absent: adenopathy - Routine Psychiatric Exam Present: cooperative Comments: flat affect Results - Labs CBC & Chem 7: 09/20/17 04:20 09/20/17 04:20 Microbiology Results: Microbiology 09/19/17 12:15 Thoracic Fluid Gram Stain - Final 09/19/17 12:15 Thoracic Fluid Body Fluid Culture - Preliminary No Growth After 1 Day 09/19/17 12:15 Fluid Acid Fast Bacilli Culture & Smear - Preliminary 09/12/17 21:07 Sputum, Expectorated Gram Stain - Final 09/12/17 21:07 Sputum, Expectorated Sputum Culture - Final Normal Respiratory Marisela 09/12/17 18:37 Urine Legionella Urinary Antigen - Final 09/12/17 21:18 Urine Streptococcus pneumoniae Antigen (M - Final Assessment and Plan (1) Pneumonia Current visit: Yes Status: Acute Assessment and Plan: IMPRESSION Pneumonia, left lung-likely aspiration R/O severe sepsis - MAP <65 ABLA secondary to suspected chronic GI blood loss Moderate to large left pleural effusion Celiac artery dissection - new finding. Started on asa and statin at recommendation of Dr. Akilah Briscoe. (ASA currently on hold) 3.6 x 2.4 cm rounded masslike airspace consolidation RLL by CT [employer] SH[employer]TER Suspect CHF with elevated BNP Acute kidney injury-POA, resolved Hypoxia Hyperkalemia - not POA Thrombocytosis, POA Hyponatremia, POA Malnutrition with albumin level of 1.7 AAA, PVD Sacral/right buttock pressure ulcer stage 4, wound VAC. No evidence of osteo on bone scan Multiple wounds bilateral lower extremities History A-fib (EF from 2016 was 50-55%), on amiodarone HTN Mild COPD; on 2L HS HLD GERD Constipation MERI, Vitamin B12, and folate deficiencies Nonambulatory; left leg paralysis post aneurysm repair Major depression Hyperthyroidism - on PTU. Plan for maintenance methimazole per Dr. Daniel. PLAN Xarelto remains on hold due to heme positive stools and anemia; hgb dropping - down to 7.6 today. Will hold ASA which was started yesterday for new finiding of celiac artery dissection. Repeat CBC in am. Continue to follow low sodium and high potassium levels. No intervention at this point. Patient continues to discuss possibility of converting to comfort care - waiting for results of thoracentesis - patient is aware that a negative result still doesn't rule out malignancy. Also aware that he is likely not a candidate for treatment in the face of cancer. DNR. Wound care continues to follow wounds on sacrum and LE's. Hospital Course Summary Disclaimer: The visit summary below is not to be considered part of the above Progress Note. Hospital Course: IMPRESSION Pneumonia, left lung-likely aspiration R/O severe sepsis - MAP <65 ABLA secondary to suspected chronic GI blood loss Moderate to large left pleural effusion Celiac artery dissection - new finding. Started on asa and statin at recommendation of Dr. Akilah Briscoe. (ASA currently on hold) 3.6 x 2.4 cm rounded masslike airspace consolidation RLL by CT [employer] SHOE [employer] Suspect CHF with elevated BNP Acute kidney injury-POA, resolved Hypoxia Hyperkalemia - not POA Thrombocytosis, POA Hyponatremia, POA Malnutrition with albumin level of 1.7 AAA, PVD Sacral/right buttock pressure ulcer stage 4, wound VAC. No evidence of osteo on bone scan Multiple wounds bilateral lower extremities History A-fib (EF from 2016 was 50-55%), on amiodarone HTN Mild COPD; on 2L HS HLD GERD Constipation MERI, Vitamin B12, and folate deficiencies Nonambulatory; left leg paralysis post aneurysm repair Major depression Hyperthyroidism - on PTU. Plan for maintenance methimazole per Dr. Daniel. 09/12/17- hospital admission Admit, inpt status. PCP: Dr. Doyle. Code status: Full code. Pneumonia, R/O severe sepsis, hypoxia, mod-large pleural effusion, mild COPD -PSI/PORT = 147 points, risk class V (27-29% mortality) -Failed outpatient treatment with cefdinir and azithromycin (09/08-09/12) -received Levaquin IV in Ed but with severe interaction with amiodarone will start Rocephin instead -sputum cx, urine legionella and strep pneumo, resp panel -DuoNeb QID -O2 to maintain sats -elect not to give full fluid bolus d/t pleural effusion, hypoxia, and elevated BNP. BP responded well to 500 mL fluid challenge. -consult Dr. Mcpherson to tap pleural effusion. -consider pulm consult on Saturday 09/15. -suspect thrombocytosis is reactive to acute conditions. -may need oncology evaluation with masslike consolidation seen on CT chest ABLA secondary to suspected GI bleed -PRBC transfusion x1 unit. -hold Xarelto -anemia may be contributing to hypotension. -clear liquid diet for now (at [facility] he is on a regular diet and regular liquids) -PPI Suspect CHF with elevated BNP and mod-large pleural effusion -check echocardiogram -EKG -continue amiodarone and metoprolol if BP can tolerate Elevated creatinine, hyponatremia -500 mL NS bolus in ED -hold Lasix, lisinopril Multiple wounds, Malnutrition -consult wound clinic -consult dietitian when diet is advanced -hx MERI, vit B12 and folate deficiencies 09/13/17 11:12 [place] Await surgical opinion regarding possible thoracentesis on Friday. Continue supportive care with IV antibiotics. Lasix 20 mg IV x 1 for volume management. Increased pain medications (stopped tramadol, started norco 7.5 mg 6H prn) Continue clear liquids pending surgical opinion. Surveillance labs for AM on 09/14 Wound team following, continues on wound vac for pressue ulcer. 09/14/17 13:54 [place] Lasix 20 mg IVP x 1 again today for volume overload; breathing improving. [facility] planned for evaluation of swallow function tomorrow. Repeat CXR in AM Hold on endoscopy, thoracentesis pending swallow eval and repeat CXR as well as goals of care discussions. Discuss goals of care further when above information available. Continue rocephin and monitor respiratory status. Continue norco for pain control, improved today. 09/15/17 18:13 Modified barium swallow canceled due to patient's inability to sit upright and radiology schedule. Sputum culture normal marisela, suspect aspiration as cause of acute respiratory symptoms. Hemoglobin stable. Total body fluid overload, will likely need additional diuresis. 09/16/17 16:21 Continue ceftriaxone and Duoneb txs for pneumonia. Wt up 3 kg. Give extra 40 of Lasix IV today. Check BMP in am to monitor electrolytes and kidney function. Barium swallow was neg for aspiration. Speech therapy recommendations are pending at this time. Dietary consult to address his malnutrition. 09/17/17 Again had extensive discussion with the patient regarding multiple concerns and challenges he is facing. Antibiotics completed yesterday after 5 days, chest x-ray in a.m. Ongoing concerns about swallow function-discussed with Dr. Mcpherson, EGD planned tomorrow. Patient does not want to proceed with colonoscopy at this time. TSH depressed and free T4 returned today significantly elevated. May be related to amiodarone use. Patient is clearly apathetic consistent with hyperthyroidism in an elderly patient and hyperthyroidism may impact patient's reported difficulty swallowing and malnutrition. Discussed with Dr. Daniel who will see the patient in consultation. Discussed with Dr. Ruiz this morning, previously reported bone culture was actually tissue culture. Wound care nurse reports decubitus on the right buttock does extend down to the bone however and patient at high risk for osteomyelitis. Unable to perform MRI but will schedule triple phase bone scan for further evaluation. No evidence DVT left upper extremity, localized edema likely positional as patient consistently lies on his left arm. Pain control improving progressively; some constipation with increased narcotic use-MiraLAX increased to 34 g daily with Senokot twice a day and MOM when necessary. Renal function improved/stable; nursing confirms improved oral intake. Xarelto remains on hold due to heme positive stools and anemia; consistently in sinus rhythm since arrival however known history atrial fibrillation. Patient continues to discuss possibility of converting to comfort care indicating he'll make his decision tomorrow depending on results of EGD. Patient doesn't want to be bedridden in a intermediate indefinitely. At this time he clearly states that he does not wish to have resuscitative efforts initiated in the event of cardiac or pulmonary arrest and that he wants natural to be permitted should it occur. DO NOT RESUSCITATE order has subsequently been written at patient's request. 09/18/17 13:40 Again had extensive discussion with the patient regarding multiple concerns and challenges he is facing. Antibiotics completed yesterday after 5 days, chest x-ray with persistent LLL consolidation - will obtain CT thorax due to mass-like nature at admission. Ongoing concerns about swallow function-EGD doesn't explain dysphagia, MBS without aspiration. TSH depressed and free T4 returned today significantly elevated. May be related to amiodarone use. Patient is clearly apathetic consistent with hyperthyroidism in an elderly patient and hyperthyroidism may impact patient's reported difficulty swallowing and malnutrition. Dr. Daniel started PTU, will monitor for improvements. Dr. Proctor discussed case with Dr. Ruiz 09/17, previously reported bone culture was actually tissue culture. Wound care nurse reports decubitus on the right buttock does extend down to the bone however and patient at high risk for osteomyelitis. Will schedule triple phase bone scan to further evaluate. Pain control improving progressively Xarelto remains on hold due to heme positive stools and anemia; consistently in sinus rhythm since arrival however known history atrial fibrillation. Patient continues to discuss possibility of converting to comfort care - wanting to gather more information in bone scan and chest ct to make decisions. At this time he clearly states that he does not wish to have resuscitative efforts initiated in the event of cardiac or pulmonary arrest and that he wants natural to be permitted should it occur. DO NOT RESUSCITATE order has subsequently been written at patient's request. Continue to discuss nutrition. 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 Akilah Briscoe who advised conservative care with asa and statin. Will start asa today - monitor h/h closely. F/u Dr Briscoe in [address] scan. Hyperthyroidism - on PTU, Dr. Daniel following and will recheck thyroid friday. Plan for maintenance methimazole. Dr. Proctor discussed case with Dr. Ruiz 09/17, previously reported bone culture was actually tissue culture. Wound care nurse reports decubitus on the right buttock does extend down to the bone however and patient at high risk for osteomyelitis. Bone scan negative for osteo. Change to scheduled percocet with prn morphine for pain Xarelto remains on hold due to heme positive stools and anemia; consistently in sinus rhythm since arrival however known history atrial fibrillation. Ongoing concerns about swallow function-EGD doesn't explain dysphagia, MBS without aspiration. Patient continues to discuss possibility of converting to comfort care - waiting for results of thoracentesis - patient is aware that a negative result still doesn't rule out malignancy. Also aware that he is likely not a candidate for treatment in the face of cancer. DNR. Continue to discuss nutrition. 09/20/17 14:14 Xarelto remains on hold due to heme positive stools and anemia; hgb dropping - down to 7.6 today. Will hold ASA which was started yesterday for new finiding of celiac artery dissection. Repeat CBC in am. Continue to follow low sodium and high potassium levels. No intervention at this point. Patient continues to discuss possibility of converting to comfort care - waiting for results of thoracentesis - patient is aware that a negative result still doesn't rule out malignancy. Also aware that he is likely not a candidate for treatment in the face of cancer. DNR. Wound care continues to follow wounds on sacrum and LE's. <Cinthia Proctor - Last Filed: 09/20/17 17:42> - Date 09/20/17 Results - Labs CBC & Chem 7: 09/20/17 04:20 09/20/17 04:20 Assessment and Plan (1) Pneumonia Current visit: Yes Status: Acute Assessment and Plan: I have independently evaluated and examined this patient. I reviewed the chart, the patient's history, and the LIVE[employer]OCK TR[employer]ER/PA's documented findings as above. We discussed and formulated the assessment and plan as above with additions as below: Mr. Fu continues to question whether "he's 6 foot under". Breathing is improved following thoracentesis but he continued to describe feeling short of breath after several words. He reports cough/clearing his throat intermittently. He denied chest pain or palpitations except some minor chest pain at the site of thoracentesis. He is tolerating some oral intake but indicates it's really very poor. Had heartburn couple of days ago and reports no bowel movement for 3 or 4 days. Back pain/generalized pain has improved with scheduled pain medicine and he reports he only needs additional medicine when he is being moved about. Breath sounds are clear anteriorly although patient positioning limits examination of the left lung field other than upper anterior lung field. Abdomen is soft, edema in the left arm is improved over the past couple of days. Affect flat. Gram stain pleural fluid without organisms and only a few white cells reported, LDH 116 with low pleural fluid/serum ratio, total protein <3 with ratio 0.6 largely due to low serum protein levels but cannot exclude an exudate based on protein ratio. Culture/cytology pending. Slow drop in hemoglobin without evidence of acute blood loss. Continue aspirin due to known celiac artery dissection unless there is evidence of clear contraindication. Patient encouraged to participate with PT; await pleural fluid cytology to determine if further evaluation of pulmonary masses will be needed. Bone scan reviewed by myself-no osteomyelitis; CT chest also reviewed by myself. Discussed with Dr. Mcpherson. DVT Prophylaxis: SCD's Resuscitation Status: Do Not Resuscitate Hospital Course Summary Disclaimer: The visit summary below is not to be considered part of the above Progress Note.
[2017-09-20] MEDS: MELATONIN 1 MG TABLET PO SCH (20:24)
[2017-09-20] MEDS: PRAVASTATIN 40 MG TABLET PO SCH (20:25)
[2017-09-20] MEDS: TAMSULOSIN 0.4 MG CAPSULE PO SCH (20:25)
[2017-09-20] MEDS: MELATONIN 5 MG TABLET PO SCH (20:25)
[2017-09-21] MEDS: OXYCODONE/APAP 7.5 MG/325 MG TABLET PO SCH ×4 (02:46→19:51)
[2017-09-21] MEDS: PROPYLTHIOURACIL 50 MG TABLET PO SCH ×4 (02:47→20:01)
[2017-09-21] MEDS: PANTOPRAZOLE 40 MG TABLET PO SCH (05:54)
[2017-09-21] MEDS: ALBUTEROL/IPRATROPIUM 2.5mg-0.5mg/3ml NEB AEROSOL SCH ×4 (07:37→19:08)
[2017-09-21] MEDS: ASCORBIC ACID 500 MG TABLET PO SCH (09:21)
[2017-09-21] MEDS: ASPIRIN 81 MG CHEWABLE TABLET PO SCH (09:22)
[2017-09-21] MEDS: MAGNESIUM OXIDE 400 MG TABLET PO SCH (09:22)
[2017-09-21] MEDS: SERTRALINE 25 MG TABLET PO SCH (09:22)
[2017-09-21] MEDS: FUROSEMIDE 40 MG TABLET PO SCH (09:22)
[2017-09-21] MEDS: FERROUS SULFATE 324 MG TABLET PO SCH ×2 (09:23→18:14)
[2017-09-21] MEDS: SENNA + DOCUSATE TABLET PO SCH ×3 (09:23→20:00)
[2017-09-21] MEDS: AMIODARONE 200 MG TABLET PO SCH ×2 (09:23→20:01)
[2017-09-21] MEDS: POLYETHYL GLYCOL 3350 17gm PACKET PO SCH (09:23)
[2017-09-21] MEDS: SALINE FLUSH 10ml SYRINGE IV PRN ×3 (09:27→20:00)
[2017-09-21] MEDS: MORPHINE SULFATE 2mg INJECTION IVP PRN ×2 (17:32→22:27)
--- NOTE | 2017-09-21 18:00 | Progress Note ---
- Date 09/21/17 Subjective: Mr. Fu was seen with his and daughter at the bedside. He reports minimal change indicating that he can talk little longer without becoming short of breath since the thoracentesis and resolution of pain at the thoracentesis site compared to yesterday. He ate a good breakfast but had no appetite at lunch. He reports having a little bit of diarrhea after milk of magnesia yesterday. He denies nausea or vomiting and has had no difficulty urinating. He is concerned that he is having generalized back, knee, and ankle pain and reports that current pain medication does not last 6 hours. He is resting fairly well at night but thinks he would be better served with medications at four-hour interval except at night. Objective Vital signs: Temperature 98.9 F 09/21/17 15:18 Pulse Rate 70 09/21/17 16:00 Respiratory Rate 18 09/21/17 15:32 Blood Pressure 103/51 09/21/17 15:18 Pulse Oximetry 94 -3 L 09/21/17 15:18 Oral intake yesterday-490 mL NAD, alert Faint white plaquing on tongue, conjugate gaze Respirations nonlabored, good airflow, breath sounds clear anteriorly Heart sounds are very distant Abdomen is soft and nontender, bowel sounds are present +2 edema bilateral lower extremities and upper LUE Patient is cooperative and speech is fluent Height/Weight/BMI: Height 1.73 m Weight 73.5 kg Body Mass Index 24.7 Results - Labs CBC & Chem 7: 09/21/17 04:08 09/21/17 04:08 Labs: S82, L8, M10 CRP 226.4 Albumin 1.7, bilirubin 2.4-other liver enzymes normal fT4 0.5 Microbiology Results: Microbiology 09/19/17 12:15 Thoracic Fluid Gram Stain -few WBCs, no organisms 09/19/17 12:15 Thoracic Fluid Body Fluid Culture - Preliminary No Growth After 2 Days 09/19/17 12:15 Pleural Fluid Fungal Culture - Preliminary 09/19/17 12:15 Fluid Acid Fast Bacilli Culture & Smear - no AFB seen, culture pending Assessment and Plan (1) Pneumonia Current visit: Yes Status: Acute (2) Pleural effusion on left Current visit: Yes Status: Acute (3) Pulmonary mass Problem details: Bilateral Current visit: Yes Status: Acute Assessment and Plan: IMPRESSION Pneumonia, left lung-likely aspiration-treatment completed R/O severe sepsis - MAP <65, POA ABLA secondary to suspected chronic GI blood loss, transfused 1 unit PRBC 09/12 Moderate to large left pleural effusion, thoracentesis 1400 mL 09/19/17 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 Started on asa and statin at recommendation of Dr. Akilah Briscoe. 3.6 x 2.4 cm rounded masslike airspace consolidation RLL by CT [employer] Bilateral lower lobe pulmonary masses, L > R by CT 09/18/17 Hyperthyroidism - on PTU. Plan for maintenance methimazole per Dr. Daniel. Sacral/right buttock pressure ulcer stage 4, wound VAC. No evidence of osteo on bone scan Multiple wounds bilateral lower extremities Suspect CHF with elevated BNP Acute kidney injury-POA, resolved Hypoxia Hyperkalemia - not POA Thrombocytosis, POA Hyponatremia, POA Malnutrition with albumin level of 1.7 AAA, PVD History A-fib (EF from 2016 was 50-55%), on amiodarone; paced rhythm currently HTN Mild COPD; on 2L HS HLD GERD Constipation MERI, Vitamin B12, and folate deficiencies Nonambulatory; left leg paralysis post aneurysm repair Major depression PLAN No significant change; hemoglobin drifting down progressively. Anticipate need for transfusion in the next 1-2 days. Reassess hemoglobin a.m. PT/OT consults for the morning. Cytology pending on pleural fluid; if negative will address options of PET scan versus bronchoscopy further although patient's functional status and wounds do not make him a good candidate for chemotherapy if cancer identified as suspected. Pleural fluid culture negative after 2 days. Options again discussed with Dr. Mcpherosn. Persistent thrombocytosis and borderline hyperkalemia-cortisol to be screened in a.m. T4 suppressed on current dose PTU-will discuss with Dr. Daniel tomorrow. Percocet switched from every 6 hours to every 4 while awake; discussed with nursing. DVT Prophylaxis: SCD's Resuscitation Status: Do Not Resuscitate Hospital Course Summary Disclaimer: The visit summary below is not to be considered part of the above Progress Note. Hospital Course: IMPRESSION Pneumonia, left lung-likely aspiration R/O severe sepsis - MAP <65 ABLA secondary to suspected chronic GI blood loss Moderate to large left pleural effusion Celiac artery dissection - new finding. Started on asa and statin at recommendation of Dr. Akilah Briscoe. (ASA currently on hold) 3.6 x 2.4 cm rounded masslike airspace consolidation RLL by CT [employer] Suspect CHF with elevated BNP Acute kidney injury-POA, resolved Hypoxia Hyperkalemia - not POA Thrombocytosis, POA Hyponatremia, POA Malnutrition with albumin level of 1.7 AAA, PVD Sacral/right buttock pressure ulcer stage 4, wound VAC. No evidence of osteo on bone scan Multiple wounds bilateral lower extremities History A-fib (EF from 2016 was 50-55%), on amiodarone HTN Mild COPD; on 2L HS HLD GERD Constipation MERI, Vitamin B12, and folate deficiencies Nonambulatory; left leg paralysis post aneurysm repair Major depression Hyperthyroidism - on PTU. Plan for maintenance methimazole per Dr. Daniel. 09/12/17- hospital admission Admit, inpt status. PCP: Dr. Doyle. Code status: Full code. Pneumonia, R/O severe sepsis, hypoxia, mod-large pleural effusion, mild COPD -PSI/PORT = 147 points, risk class V (27-29% mortality) -Failed outpatient treatment with cefdinir and azithromycin (09/08-09/12) -received Levaquin IV in Ed but with severe interaction with amiodarone will start Rocephin instead -sputum cx, urine legionella and strep pneumo, resp panel -DuoNeb QID -O2 to maintain sats -elect not to give full fluid bolus d/t pleural effusion, hypoxia, and elevated BNP. BP responded well to 500 mL fluid challenge. -consult Dr. Mcpherson to tap pleural effusion. -consider pulm consult on Saturday 09/15. -suspect thrombocytosis is reactive to acute conditions. -may need oncology evaluation with masslike consolidation seen on CT chest ABLA secondary to suspected GI bleed -PRBC transfusion x1 unit. -hold Xarelto -anemia may be contributing to hypotension. -clear liquid diet for now (at [facility] he is on a regular diet and regular liquids) -PPI Suspect CHF with elevated BNP and mod-large pleural effusion -check echocardiogram -EKG -continue amiodarone and metoprolol if BP can tolerate Elevated creatinine, hyponatremia -500 mL NS bolus in ED -hold Lasix, lisinopril Multiple wounds, Malnutrition -consult wound clinic -consult dietitian when diet is advanced -hx MERI, vit B12 and folate deficiencies 09/13/17 11:12 [place] Await surgical opinion regarding possible thoracentesis on Friday. Continue supportive care with IV antibiotics. Lasix 20 mg IV x 1 for volume management. Increased pain medications (stopped tramadol, started norco 7.5 mg 6H prn) Continue clear liquids pending surgical opinion. Surveillance labs for AM on 09/14 Wound team following, continues on wound vac for pressue ulcer. 09/14/17 13:54 [place] Lasix 20 mg IVP x 1 again today for volume overload; breathing improving. [facility] [place] planned for evaluation of swallow function tomorrow. Repeat CXR in AM Hold on endoscopy, thoracentesis pending swallow eval and repeat CXR as well as goals of care discussions. Discuss goals of care further when above information available. Continue rocephin and monitor respiratory status. Continue norco for pain control, improved today. 09/15/17 18:13 Modified barium swallow canceled due to patient's inability to sit upright and radiology schedule. Sputum culture normal marisela, suspect aspiration as cause of acute respiratory symptoms. Hemoglobin stable. Total body fluid overload, will likely need additional diuresis. 09/16/17 16:21 Continue ceftriaxone and Duoneb txs for pneumonia. Wt up 3 kg. Give extra 40 of Lasix IV today. Check BMP in am to monitor electrolytes and kidney function. Barium swallow was neg for aspiration. Speech therapy recommendations are pending at this time. Dietary consult to address his malnutrition. 09/17/17 Again had extensive discussion with the patient regarding multiple concerns and challenges he is facing. Antibiotics completed yesterday after 5 days, chest x-ray in a.m. Ongoing concerns about swallow function-discussed with Dr. cMpherson, EGD planned tomorrow. Patient does not want to proceed with colonoscopy at this time. TSH depressed and free T4 returned today significantly elevated. May be related to amiodarone use. Patient is clearly apathetic consistent with hyperthyroidism in an elderly patient and hyperthyroidism may impact patient's reported difficulty swallowing and malnutrition. Discussed with Dr. Daniel who will see the patient in consultation. Discussed with Dr. Ruiz this morning, previously reported bone culture was actually tissue culture. Wound care nurse reports decubitus on the right buttock does extend down to the bone however and patient at high risk for osteomyelitis. Unable to perform MRI but will schedule triple phase bone scan for further evaluation. No evidence DVT left upper extremity, localized edema likely positional as patient consistently lies on his left arm. Pain control improving progressively; some constipation with increased narcotic use-MiraLAX increased to 34 g daily with Senokot twice a day and MOM when necessary. Renal function improved/stable; nursing confirms improved oral intake. Xarelto remains on hold due to heme positive stools and anemia; consistently in sinus rhythm since arrival however known history atrial fibrillation. Patient continues to discuss possibility of converting to comfort care indicating he'll make his decision tomorrow depending on results of EGD. Patient doesn't want to be bedridden in a [facility] indefinitely. At this time he clearly states that he does not wish to have resuscitative efforts initiated in the event of cardiac or pulmonary arrest and that he wants natural to be permitted should it occur. DO NOT RESUSCITATE order has subsequently been written at patient's request. 09/18/17 Again had extensive discussion with the patient regarding multiple concerns and challenges he is facing. Antibiotics completed yesterday after 5 days, chest x-ray with persistent LLL consolidation - will obtain CT thorax due to mass-like nature at admission. Ongoing concerns about swallow function-EGD doesn't explain dysphagia, MBS without aspiration. TSH depressed and free T4 returned today significantly elevated. May be related to amiodarone use. Patient is clearly apathetic consistent with hyperthyroidism in an elderly patient and hyperthyroidism may impact patient's reported difficulty swallowing and malnutrition. Dr. Daniel started PTU, will monitor for improvements. Dr. Proctor discussed case with Dr. Ruiz 09/17, previously reported bone culture was actually tissue culture. Wound care nurse reports decubitus on the right buttock does extend down to the bone however and patient at high risk for osteomyelitis. Will schedule triple phase bone scan to further evaluate. Pain control improving progressively Xarelto remains on hold due to heme positive stools and anemia; consistently in sinus rhythm since arrival however known history atrial fibrillation. Patient continues to discuss possibility of converting to comfort care - wanting to gather more information in bone scan and chest ct to make decisions. At this time he clearly states that he does not wish to have resuscitative efforts initiated in the event of cardiac or pulmonary arrest and that he wants natural to be permitted should it occur. DO NOT RESUSCITATE order has subsequently been written at patient's request. Continue to discuss nutrition. 09/19/17 Antibiotics completed 09/[address] chest 09/18/17 showed likely bilateral (left > right) malignant masses s/p thoracentesis today - cultures and pathology pending WBC up today, but afebrile - monitor, could have post-obstructive process 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 Akilah Briscoe who advised conservative care with asa and statin. Will start asa today - monitor h/h closely. F/u Dr Briscoe in [address] scan. Hyperthyroidism - on PTU, Dr. Daniel following and will recheck thyroid friday. Plan for maintenance methimazole. Dr. Proctor discussed case with Dr. Ruiz 09/17, previously reported bone culture was actually tissue culture. Wound care nurse reports decubitus on the right buttock does extend down to the bone however and patient at high risk for osteomyelitis. Bone scan negative for osteo. Change to scheduled percocet with prn morphine for pain Xarelto remains on hold due to heme positive stools and anemia; consistently in sinus rhythm since arrival however known history atrial fibrillation. Ongoing concerns about swallow function-EGD doesn't explain dysphagia, MBS without aspiration. Patient continues to discuss possibility of converting to comfort care - waiting for results of thoracentesis - patient is aware that a negative result still doesn't rule out malignancy. Also aware that he is likely not a candidate for treatment in the face of cancer. DNR. Continue to discuss nutrition. 09/20/17 Xarelto remains on hold due to heme positive stools and anemia; hgb dropping - down to 7.6 today. Will hold ASA which was started yesterday for new finiding of celiac artery dissection. Repeat CBC in am. Continue to follow low sodium and high potassium levels. No intervention at this point. Patient continues to discuss possibility of converting to comfort care - waiting for results of thoracentesis - patient is aware that a negative result still doesn't rule out malignancy. Also aware that he is likely not a candidate for treatment in the face of cancer. DNR. Wound care continues to follow wounds on sacrum and LE's. 09/21/17 Hemoglobin drifting down, may require transfusion tomorrow. Percocet increased to every 4 hours while awake due to inadequate control at 6 hour interval. Persistent hyponatremia and borderline hyperkalemia-screening cortisol level. Free T4 well-controlled on PTU, discussed with Dr. Daniel tomorrow. Pleural fluid culture negative, cytology pending.
[2017-09-21] MEDS: MELATONIN 5 MG TABLET PO SCH (20:00)
[2017-09-21] MEDS: MELATONIN 1 MG TABLET PO SCH (20:01)
[2017-09-21] MEDS: TAMSULOSIN 0.4 MG CAPSULE PO SCH (20:01)
[2017-09-21] MEDS: PRAVASTATIN 40 MG TABLET PO SCH (20:01)
[2017-09-22] MEDS: OXYCODONE/APAP 7.5 MG/325 MG TABLET PO SCH ×6 (00:35→21:23)
[2017-09-22] MEDS: PROPYLTHIOURACIL 50 MG TABLET PO SCH ×4 (02:31→21:25)
[2017-09-22] MEDS: PANTOPRAZOLE 40 MG TABLET PO SCH (05:39)
[2017-09-22] MEDS: ALBUTEROL/IPRATROPIUM 2.5mg-0.5mg/3ml NEB AEROSOL SCH ×4 (07:07→19:15)
--- NOTE | 2017-09-22 07:52 | Endocrinology Progress Note ---
Subjective Principal diagnosis: Hyperthyroidism Interval history: Breathing easily. Denies chest pain. Has little appetite. No palpitations. Exam Vital signs: Temperature 98.9 F 09/22/17 04:13 Pulse Rate 68 09/22/17 01:00 Respiratory Rate 18 09/22/17 07:08 Blood Pressure 112/56 09/22/17 00:00 Pulse Oximetry 95 09/22/17 07:08 - Constitutional no acute distress, well developed, thin - Routine HEENT Exam Head: Present: normocephalic, atraumatic Eye: Present: EOMI ENT: Present: mucous membranes moist - Routine Neck Exam Absent: thyromegaly - Routine Respiratory Exam Absent: respiratory distress - Routine Cardiovascular Exam Present: RRR - Routine Abdominal Exam Present: soft, normoactive bowel sounds - Routine Extremities Exam Absent: edema - Routine Skin Exam Present: dry, warm - Routine Neurological Exam Present: alert, oriented X3. Absent: tremors - Routine Psychiatric Exam Present: normal affect, normal thought process, good insight - Additional findings Additional findings: Laboratory Tests 09/16/17 09/21/17 04:07 04:08 Free T4 6.98 H 5.79 H Assessment and Plan (1) Hyperthyroidism Current visit: Yes Status: Acute Hyperthyroidism shows little improvement thus far. Will increase PTU to 150 mg q 6 hrs. Should recheck FT4 in another week or two.
[2017-09-22] MEDS: POLYETHYL GLYCOL 3350 17gm PACKET PO SCH (08:40)
[2017-09-22] MEDS: ASPIRIN 81 MG CHEWABLE TABLET PO SCH (08:41)
[2017-09-22] MEDS: MAGNESIUM OXIDE 400 MG TABLET PO SCH (08:41)
[2017-09-22] MEDS: AMIODARONE 200 MG TABLET PO SCH ×2 (08:41→21:22)
[2017-09-22] MEDS: FUROSEMIDE 40 MG TABLET PO SCH (08:41)
[2017-09-22] MEDS: SENNA + DOCUSATE TABLET PO SCH ×2 (08:41→21:22)
[2017-09-22] MEDS: FERROUS SULFATE 324 MG TABLET PO SCH ×2 (08:42→16:54)
[2017-09-22] MEDS: SERTRALINE 25 MG TABLET PO SCH (08:42)
[2017-09-22] MEDS: ASCORBIC ACID 500 MG TABLET PO SCH (08:42)
[2017-09-22] MEDS: SALINE FLUSH 10ml SYRINGE IV PRN ×2 (08:45→10:41)
[2017-09-22] MEDS: MORPHINE SULFATE 2mg INJECTION IVP PRN (10:40)
--- NOTE | 2017-09-22 13:46 | Progress Note ---
<Yamileth Alejo - Last Filed: 09/22/17 13:43> - Date 09/22/17 Subjective: Patient is seen lying in bed. He reports no new symptoms. He is still awaiting the results of the cytology from the pleural fluid. He complains of gas and requests medicine for gas. States his last bowel movement was a day or 2 ago. Since he doesn't have much of an appetite. Reports he has trouble swallowing some foods. He's been trying to drink the mighty shakes. He requests more or different pain medication beyond the morphine with wound VAC changes. He states the pain is unbearable despite having premedicated with morphine. He continues to have diffuse swelling. He is mostly bothered by the swelling in the scrotal area. Objective Vital signs: Temperature 98.1 F 09/22/17 07:54 Pulse Rate 73 09/22/17 09:00 Respiratory Rate 18 09/22/17 11:28 Blood Pressure 108/59 09/22/17 07:54 Pulse Oximetry 93 09/22/17 11:28 Rhythm: Normal Sinus Rhythm Height/Weight/BMI: Height 1.73 m Weight 73.2 kg Body Mass Index 24.7 - Constitutional Present: no acute distress, well nourished, well developed - Routine HEENT Exam Head: Present: normocephalic ENT: Present: mucous membranes moist - Routine Respiratory Exam Present: decreased breath sounds, CTA bilaterally. Absent: wheezes - Routine Cardiovascular Exam Present: RRR. Absent: murmur - Routine Abdominal Exam Present: soft, normoactive bowel sounds, tenderness (right upper quadrant), non distended - Routine Extremities Exam Present: normal capillary refill Comments: Anasarca-swelling from the feet to the legs and abdomen. No swelling in the right arm but has pitting edema in the left arm. - Routine Skin Exam Present: dry, warm - Routine Neurological Exam Present: alert, normal speech. Absent: altered mental status - Routine Lymphatic Exam Lymphatic: Absent: adenopathy - Routine Psychiatric Exam Present: cooperative, depressed Results - Labs CBC & Chem 7: 09/22/17 10:15 09/22/17 08:22 Microbiology Results: Microbiology 09/19/17 12:15 Thoracic Fluid Gram Stain - Final 09/19/17 12:15 Thoracic Fluid Body Fluid Culture - Preliminary No Growth After 3 Days 09/19/17 12:15 Fluid Acid Fast Bacilli Culture & Smear - Preliminary 09/19/17 12:15 Pleural Fluid Fungal Culture - Preliminary 09/12/17 21:07 Sputum, Expectorated Gram Stain - Final 09/12/17 21:07 Sputum, Expectorated Sputum Culture - Final Normal Respiratory Marisela 09/12/17 18:37 Urine Legionella Urinary Antigen - Final 09/12/17 21:18 Urine Streptococcus pneumoniae Antigen (M - Final Assessment and Plan (1) Pneumonia Current visit: Yes Status: Acute (2) Pleural effusion on left Current visit: Yes Status: Acute (3) Pulmonary mass Problem details: Bilateral Current visit: Yes Status: Acute Assessment and Plan: IMPRESSION Pneumonia, left lung-likely aspiration-treatment completed R/O severe sepsis - MAP <65, POA ABLA secondary to suspected chronic GI blood loss, transfused 1 unit PRBC 09/12 Moderate to large left pleural effusion, thoracentesis 1400 mL 09/19/17 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 Started on asa and statin at recommendation of Dr. Akilah Briscoe. 3.6 x 2.4 cm rounded masslike airspace consolidation RLL by CT [employer] Bilateral lower lobe pulmonary masses, L > R by CT 09/18/17 Hyperthyroidism - on PTU. Plan for maintenance methimazole per Dr. Daniel. Sacral/right buttock pressure ulcer stage 4, wound VAC. No evidence of osteo on bone scan Multiple wounds bilateral lower extremities Suspect CHF with elevated BNP Acute kidney injury-POA, resolved Hypoxia Hyperkalemia - not POA Thrombocytosis, POA Hyponatremia, POA Malnutrition with albumin level of 1.7 AAA, PVD History A-fib (EF from 2016 was 50-55%), on amiodarone; paced rhythm currently HTN Mild COPD; on 2L HS HLD GERD Constipation MERI, Vitamin B12, and folate deficiencies Nonambulatory; left leg paralysis post aneurysm repair Major depression PLAN Continue to follow hemoglobin. Stable for the past few days. Reassess hemoglobin in a.m. Cytology pending on pleural fluid Persistent thrombocytosis and borderline hyperkalemia-his cortisol drawn this morning is pending. Simethicone PRN gas sxs. Consult speech therapy re: his swallowing concerns. Hospital Course Summary Disclaimer: The visit summary below is not to be considered part of the above Progress Note. Hospital Course: IMPRESSION Pneumonia, left lung-likely aspiration R/O severe sepsis - MAP <65 ABLA secondary to suspected chronic GI blood loss Moderate to large left pleural effusion Celiac artery dissection - new finding. Started on asa and statin at recommendation of Dr. Akilah Briscoe. (ASA currently on hold) 3.6 x 2.4 cm rounded masslike airspace consolidation RLL by CT [employer] Suspect CHF with elevated BNP Acute kidney injury-POA, resolved Hypoxia Hyperkalemia - not POA Thrombocytosis, POA Hyponatremia, POA Malnutrition with albumin level of 1.7 AAA, PVD Sacral/right buttock pressure ulcer stage 4, wound VAC. No evidence of osteo on bone scan Multiple wounds bilateral lower extremities History A-fib (EF from 2016 was 50-55%), on amiodarone HTN Mild COPD; on 2L HS HLD GERD Constipation MERI, Vitamin B12, and folate deficiencies Nonambulatory; left leg paralysis post aneurysm repair Major depression Hyperthyroidism - on PTU. Plan for maintenance methimazole per Dr. Daniel. 09/12/17- hospital admission Admit, inpt status. PCP: Dr. Doyle. Code status: Full code. Pneumonia, R/O severe sepsis, hypoxia, mod-large pleural effusion, mild COPD -PSI/PORT = 147 points, risk class V (27-29% mortality) -Failed outpatient treatment with cefdinir and azithromycin (09/08-09/12) -received Levaquin IV in Ed but with severe interaction with amiodarone will start Rocephin instead -sputum cx, urine legionella and strep pneumo, resp panel -DuoNeb QID -O2 to maintain sats -elect not to give full fluid bolus d/t pleural effusion, hypoxia, and elevated BNP. BP responded well to 500 mL fluid challenge. -consult Dr. Mcpherson to tap pleural effusion. -consider pulm consult on Saturday 09/15. -suspect thrombocytosis is reactive to acute conditions. -may need oncology evaluation with masslike consolidation seen on CT chest ABLA secondary to suspected GI bleed -PRBC transfusion x1 unit. -hold Xarelto -anemia may be contributing to hypotension. -clear liquid diet for now (at [facility] he is on a regular diet and regular liquids) -PPI Suspect CHF with elevated BNP and mod-large pleural effusion -check echocardiogram -EKG -continue amiodarone and metoprolol if BP can tolerate Elevated creatinine, hyponatremia -500 mL NS bolus in ED -hold Lasix, lisinopril Multiple wounds, Malnutrition -consult wound clinic -consult dietitian when diet is advanced -hx MERI, vit B12 and folate deficiencies 09/13/17 11:12 [place] Await surgical opinion regarding possible thoracentesis on Friday. Continue supportive care with IV antibiotics. Lasix 20 mg IV x 1 for volume management. Increased pain medications (stopped tramadol, started norco 7.5 mg 6H prn) Continue clear liquids pending surgical opinion. Surveillance labs for AM on 09/14 Wound team following, continues on wound vac for pressue ulcer. 09/14/17 13:54 [place] Lasix 20 mg IVP x 1 again today for volume overload; breathing improving. [facility] planned for evaluation of swallow function tomorrow. Repeat CXR in AM Hold on endoscopy, thoracentesis pending swallow eval and repeat CXR as well as goals of care discussions. Discuss goals of care further when above information available. Continue rocephin and monitor respiratory status. Continue norco for pain control, improved today. 09/15/17 18:13 Modified barium swallow canceled due to patient's inability to sit upright and radiology schedule. Sputum culture normal marisela, suspect aspiration as cause of acute respiratory symptoms. Hemoglobin stable. Total body fluid overload, will likely need additional diuresis. 09/16/17 16:21 Continue ceftriaxone and Duoneb txs for pneumonia. Wt up 3 kg. Give extra 40 of Lasix IV today. Check BMP in am to monitor electrolytes and kidney function. Barium swallow was neg for aspiration. Speech therapy recommendations are pending at this time. Dietary consult to address his malnutrition. 09/17/17 Again had extensive discussion with the patient regarding multiple concerns and challenges he is facing. Antibiotics completed yesterday after 5 days, chest x-ray in a.m. Ongoing concerns about swallow function-discussed with Dr. Mcpherson, EGD planned tomorrow. Patient does not want to proceed with colonoscopy at this time. TSH depressed and free T4 returned today significantly elevated. May be related to amiodarone use. Patient is clearly apathetic consistent with hyperthyroidism in an elderly patient and hyperthyroidism may impact patient's reported difficulty swallowing and malnutrition. Discussed with Dr. Daniel who will see the patient in consultation. Discussed with Dr. Ruiz this morning, previously reported bone culture was actually tissue culture. Wound care nurse reports decubitus on the right buttock does extend down to the bone however and patient at high risk for osteomyelitis. Unable to perform MRI but will schedule triple phase bone scan for further evaluation. No evidence DVT left upper extremity, localized edema likely positional as patient consistently lies on his left arm. Pain control improving progressively; some constipation with increased narcotic use-MiraLAX increased to 34 g daily with Senokot twice a day and MOM when necessary. Renal function improved/stable; nursing confirms improved oral intake. Xarelto remains on hold due to heme positive stools and anemia; consistently in sinus rhythm since arrival however known history atrial fibrillation. Patient continues to discuss possibility of converting to comfort care indicating he'll make his decision tomorrow depending on results of EGD. Patient doesn't want to be bedridden in a prison indefinitely. At this time he clearly states that he does not wish to have resuscitative efforts initiated in the event of cardiac or pulmonary arrest and that he wants natural to be permitted should it occur. DO NOT RESUSCITATE order has subsequently been written at patient's request. 09/18/17 Again had extensive discussion with the patient regarding multiple concerns and challenges he is facing. Antibiotics completed yesterday after 5 days, chest x-ray with persistent LLL consolidation - will obtain CT thorax due to mass-like nature at admission. Ongoing concerns about swallow function-EGD doesn't explain dysphagia, MBS without aspiration. TSH depressed and free T4 returned today significantly elevated. May be related to amiodarone use. Patient is clearly apathetic consistent with hyperthyroidism in an elderly patient and hyperthyroidism may impact patient's reported difficulty swallowing and malnutrition. Dr. Daniel started PTU, will monitor for improvements. Dr. Proctor discussed case with Dr. Ruiz 09/17, previously reported bone culture was actually tissue culture. Wound care nurse reports decubitus on the right buttock does extend down to the bone however and patient at high risk for osteomyelitis. Will schedule triple phase bone scan to further evaluate. Pain control improving progressively Xarelto remains on hold due to heme positive stools and anemia; consistently in sinus rhythm since arrival however known history atrial fibrillation. Patient continues to discuss possibility of converting to comfort care - wanting to gather more information in bone scan and chest ct to make decisions. At this time he clearly states that he does not wish to have resuscitative efforts initiated in the event of cardiac or pulmonary arrest and that he wants natural to be permitted should it occur. DO NOT RESUSCITATE order has subsequently been written at patient's request. Continue to discuss nutrition. 09/19/17 Antibiotics completed 09/[address] chest 09/18/17 showed likely bilateral (left > right) malignant masses s/p thoracentesis today - cultures and pathology pending WBC up today, but afebrile - monitor, could have post-obstructive process 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 Akilah Briscoe who advised conservative care with asa and statin. Will start asa today - monitor h/h closely. F/u Dr Briscoe in [address] scan. Hyperthyroidism - on PTU, Dr. Daniel following and will recheck thyroid friday. Plan for maintenance methimazole. Dr. Proctor discussed case with Dr. Ruiz 09/17, previously reported bone culture was actually tissue culture. Wound care nurse reports decubitus on the right buttock does extend down to the bone however and patient at high risk for osteomyelitis. Bone scan negative for osteo. Change to scheduled percocet with prn morphine for pain Xarelto remains on hold due to heme positive stools and anemia; consistently in sinus rhythm since arrival however known history atrial fibrillation. Ongoing concerns about swallow function-EGD doesn't explain dysphagia, MBS without aspiration. Patient continues to discuss possibility of converting to comfort care - waiting for results of thoracentesis - patient is aware that a negative result still doesn't rule out malignancy. Also aware that he is likely not a candidate for treatment in the face of cancer. DNR. Continue to discuss nutrition. 09/20/17 Xarelto remains on hold due to heme positive stools and anemia; hgb dropping - down to 7.6 today. Will hold ASA which was started yesterday for new finiding of celiac artery dissection. Repeat CBC in am. Continue to follow low sodium and high potassium levels. No intervention at this point. Patient continues to discuss possibility of converting to comfort care - waiting for results of thoracentesis - patient is aware that a negative result still doesn't rule out malignancy. Also aware that he is likely not a candidate for treatment in the face of cancer. DNR. Wound care continues to follow wounds on sacrum and LE's. 09/21/17 Hemoglobin drifting down, may require transfusion tomorrow. Percocet increased to every 4 hours while awake due to inadequate control at 6 hour interval. Persistent hyponatremia and borderline hyperkalemia-screening cortisol level. Free T4 well-controlled on PTU, discussed with Dr. Daniel tomorrow. Pleural fluid culture negative, cytology pending. 09/22/17 Continue to follow hemoglobin. Stable for the past few days. Reassess hemoglobin in a.m. Cytology pending on pleural fluid Persistent thrombocytosis and borderline hyperkalemia-his cortisol drawn this morning is pending. Simethicone PRN gas sxs. <Cinthia Proctor - Last Filed: 09/22/17 22:36> - Date 09/22/17 Objective Vital signs: Height/Weight/BMI: Results - Labs CBC & Chem 7: 09/22/17 10:15 09/22/17 08:22 Assessment and Plan (1) Pneumonia Current visit: Yes Status: Acute (2) Pleural effusion on left Current visit: Yes Status: Acute (3) Pulmonary mass Problem details: Bilateral Current visit: Yes Status: Acute Assessment and Plan: I have independently evaluated and examined this patient. I reviewed the chart, the patient's history, and the CLIENT RENEWAL SPECIALIST/PA's documented findings as above. We discussed and formulated the assessment and plan as above with additions as below: Mesfin reports that dyspnea is about the same as usual and that he has very poor appetite. He initially asked to be on an all liquid diet but then decided he'd rather pick and choose foods of different consistencies between soft and liquids. He again describes significant pain with wound VAC change and remains pessimistic about his ability to improve. Cachectic appearing male, nonlabored respirations with diminished airflow throughout Regular rhythm, benign abdomen Flat affect Patient limited PTs evaluation today but did participate on limited basis- [facility] recommended Pleural fluid cytology without evidence of malignancy-discussed with patient and his and Dr. Mcpherson. Options for further evaluation including PET scan versus follow-up CT in 2-3 months versus bronchoscopy reviewed with the patient and his . Dr. Mcpherson will review options with the patient further. I additionally shared my concern with the patient/ that the patient's functional status, poor nutrition, and open wounds preclude chemotherapy at this time if the diagnosis of cancer is made. As such I would favor either follow-up imaging or PET scan instead of bronchoscopy if patient wishes to pursue additional evaluation to avoid pulmonary complications of a procedure. Discussed with Dr. Mcpherson twice; informally discussed with oncology. - Time spent with patient Time with patient PN: 50 minutes Coordination of Care: >50% of visit spent providing counseling/coordination of care Hospital Course Summary Disclaimer: The visit summary below is not to be considered part of the above Progress Note.
[2017-09-22] MEDS ORDERED: SIMETHICONE 125 MG CAPSULE PO PRN (13:54)
--- NOTE | 2017-09-22 15:50 | Wound Care Progress Note ---
Wound Management - Wound Right Buttock Wound Type: Pressure Injury (Ischial) Wound Present on Admission?: Yes Wound Staging: Stage IV Length: 2.5 Width: 3 Depth: 0.4 Wound Bed Appearance: Richardson, Slough Anum Wound Appearance: Dark Red, Purple Tunneling: No Undermining: Yes (7-5 2cm) Drainage Description: Serosanguineous Drainage Amount: Moderate Drainage Odor: No Odor Dressing Status: Changed Packing Type: Woundvac Sponge Number of Packing Pieces Removed?: 2 Number of Packing Pieces Placed?: 2 Primary Dressing: Transparent Drape Secondary Dressing: Trac Pad Dressing Change Date: 09/22/17 Dressing Change Time: 10:00 Dressing Change Patient Tolerance: Tolerated Well (Pt very ill and very upset with wound vac change. Pt given extra meds to help with pain.) Microbiology: Microbiology 09/19/17 12:15 Thoracic Fluid Gram Stain - Final 09/19/17 12:15 Thoracic Fluid Body Fluid Culture - Preliminary No Growth After 3 Days 09/19/17 12:15 Fluid Acid Fast Bacilli Culture & Smear - Preliminary 09/19/17 12:15 Pleural Fluid Fungal Culture - Preliminary Right Heel Wound Type: Pressure Injury Wound Staging: Unstageable (Dark purple DTI, Boggy) Anum Wound Appearance: Purple (DTI) Primary Dressing: Foam Dressing Dressing Change Date: 09/22/17 Dressing Change Time: 10:00 Dressing Change Patient Tolerance: Tolerated Well (Reminded staff of importance of keeping yellow shalini boots on and to float heels on pillows. Also discussed with pt the need for good protein intact.) Microbiology: Microbiology 09/19/17 12:15 Thoracic Fluid Gram Stain - Final 09/19/17 12:15 Thoracic Fluid Body Fluid Culture - Preliminary No Growth After 3 Days 09/19/17 12:15 Fluid Acid Fast Bacilli Culture & Smear - Preliminary 09/19/17 12:15 Pleural Fluid Fungal Culture - Preliminary Left Calf Wound Type: Open Wound Wound Present on Admission?: Yes Wound Staging: Stage III Length: 2 Width: 1.8 Depth: 0.2 Wound Bed Appearance: Beefy Red, Slough Anum Wound Appearance: Richardson Tunneling: No Undermining: No Drainage Description: Sanguineous Drainage Amount: Moderate Drainage Odor: No Odor Dressing Status: Changed Primary Dressing: Foam Dressing (Hydra Fera Blue) Secondary Dressing: Mepilex Dressing Change Date: 09/22/17 Dressing Change Time: 10:00 Dressing Change Patient Tolerance: Tolerated Well Microbiology: Microbiology 09/19/17 12:15 Thoracic Fluid Gram Stain - Final 09/19/17 12:15 Thoracic Fluid Body Fluid Culture - Preliminary No Growth After 3 Days 09/19/17 12:15 Fluid Acid Fast Bacilli Culture & Smear - Preliminary 09/19/17 12:15 Pleural Fluid Fungal Culture - Preliminary Left Lateral Ankle Wound Type: Pressure Injury (Left lateral malleollus) Wound Present on Admission?: Yes Wound Staging: Stage III Length: 2 Width: 1.6 Depth: 0.3 Wound Bed Appearance: Beefy Red, Slough Anum Wound Appearance: Richardson Tunneling: No Undermining: No Drainage Description: Sanguineous Drainage Amount: Small Drainage Odor: No Odor Dressing Status: Changed Primary Dressing: Foam Dressing (Hydra Fera Blue) Secondary Dressing: Mepilex Dressing Change Date: 09/22/17 Dressing Change Time: 10:00 Dressing Change Patient Tolerance: Tolerated Well Microbiology: Microbiology 09/19/17 12:15 Thoracic Fluid Gram Stain - Final 09/19/17 12:15 Thoracic Fluid Body Fluid Culture - Preliminary No Growth After 3 Days 09/19/17 12:15 Fluid Acid Fast Bacilli Culture & Smear - Preliminary 09/19/17 12:15 Pleural Fluid Fungal Culture - Preliminary Right Lateral Ankle Wound Type: Pressure Injury Wound Present on Admission?: Yes Wound Staging: Stage III Length: 2.2 Width: 2 Depth: 0.3 Wound Bed Appearance: Richardson, Slough Tunneling: No Undermining: No Drainage Description: Sanguineous Drainage Amount: Small Drainage Odor: No Odor Dressing Status: Changed Primary Dressing: Foam Dressing (Hydra Fera Blue) Secondary Dressing: Mepilex Dressing Change Date: 09/22/17 Dressing Change Time: 10:00 Dressing Change Patient Tolerance: Tolerated Well Microbiology: Microbiology 09/19/17 12:15 Thoracic Fluid Gram Stain - Final 09/19/17 12:15 Thoracic Fluid Body Fluid Culture - Preliminary No Growth After 3 Days 09/19/17 12:15 Fluid Acid Fast Bacilli Culture & Smear - Preliminary 09/19/17 12:15 Pleural Fluid Fungal Culture - Preliminary Right Lateral Foot Wound Type: Pressure Injury Wound Present on Admission?: Yes Wound Staging: Unstageable Anum Wound Appearance: Purple Tunneling: No Undermining: No Primary Dressing: Foam Dressing (Encouraged staff to keep yellow shalini boots on and turn frequently) Dressing Change Date: 09/22/17 Dressing Change Time: 10:00 Microbiology: Microbiology 09/19/17 12:15 Thoracic Fluid Gram Stain - Final 09/19/17 12:15 Thoracic Fluid Body Fluid Culture - Preliminary No Growth After 3 Days 09/19/17 12:15 Fluid Acid Fast Bacilli Culture & Smear - Preliminary 09/19/17 12:15 Pleural Fluid Fungal Culture - Preliminary Right Calf Wound Present on Admission?: Yes Length: 2.5 Width: 7 Depth: 0.1 Wound Bed Appearance: Beefy Red, Slough Tunneling: No Undermining: No Drainage Description: Sanguineous Drainage Amount: Small Drainage Odor: No Odor Dressing Status: Changed Primary Dressing: Alginate Secondary Dressing: Mepilex Dressing Change Date: 09/22/17 Dressing Change Time: 10:00 Dressing Change Patient Tolerance: Tolerated Well Microbiology: Microbiology 09/19/17 12:15 Thoracic Fluid Gram Stain - Final 09/19/17 12:15 Thoracic Fluid Body Fluid Culture - Preliminary No Growth After 3 Days 09/19/17 12:15 Fluid Acid Fast Bacilli Culture & Smear - Preliminary 09/19/17 12:15 Pleural Fluid Fungal Culture - Preliminary
[2017-09-22] MEDS: MELATONIN 1 MG TABLET PO SCH (21:21)
[2017-09-22] MEDS: MELATONIN 5 MG TABLET PO SCH (21:21)
[2017-09-22] MEDS: PRAVASTATIN 40 MG TABLET PO SCH (21:22)
[2017-09-22] MEDS: TAMSULOSIN 0.4 MG CAPSULE PO SCH (21:22)
[2017-09-23] MEDS: OXYCODONE/APAP 7.5 MG/325 MG TABLET PO SCH ×7 (01:33→23:44)
[2017-09-23] MEDS: PROPYLTHIOURACIL 50 MG TABLET PO SCH ×4 (03:28→21:32)
[2017-09-23] MEDS: SALINE FLUSH 10ml SYRINGE IV PRN (03:29)
[2017-09-23] MEDS: PANTOPRAZOLE 40 MG TABLET PO SCH (06:38)
[2017-09-23] MEDS: ALBUTEROL/IPRATROPIUM 2.5mg-0.5mg/3ml NEB AEROSOL SCH ×4 (07:53→19:13)
--- NOTE | 2017-09-23 08:31 | Endocrinology Progress Note ---
Subjective Principal diagnosis: Hyperthyroidism Interval history: Breathing easily. Denies chest pain. Has better appetite. No palpitations. Exam Vital signs: Temperature 97.7 F 09/23/17 08:00 Pulse Rate 76 09/23/17 08:00 Respiratory Rate 20 09/23/17 08:00 Blood Pressure 107/60 09/23/17 08:00 Pulse Oximetry 93 09/23/17 08:00 - Constitutional no acute distress, well developed, thin - Routine HEENT Exam Head: Present: normocephalic, atraumatic Eye: Present: EOMI ENT: Present: mucous membranes moist - Routine Neck Exam Absent: thyromegaly - Routine Respiratory Exam Absent: respiratory distress - Routine Cardiovascular Exam Present: RRR - Routine Abdominal Exam Present: soft, normoactive bowel sounds - Routine Extremities Exam Present: edema - Routine Skin Exam Present: dry, warm - Routine Neurological Exam Present: alert, oriented X3 - Routine Psychiatric Exam Present: normal affect, normal thought process, good insight, good judgment Assessment and Plan (1) Hyperthyroidism Current visit: Yes Status: Acute Tolerating higher dose of PTU without problems. Should recheck FT4, TSH next week.
[2017-09-23] MEDS: FERROUS SULFATE 324 MG TABLET PO SCH ×2 (09:34→16:39)
[2017-09-23] MEDS: AMIODARONE 200 MG TABLET PO SCH ×2 (09:35→21:32)
[2017-09-23] MEDS: FUROSEMIDE 40 MG TABLET PO SCH (09:35)
[2017-09-23] MEDS: MAGNESIUM OXIDE 400 MG TABLET PO SCH (09:35)
[2017-09-23] MEDS: SERTRALINE 25 MG TABLET PO SCH (09:35)
[2017-09-23] MEDS: ASPIRIN 81 MG CHEWABLE TABLET PO SCH (09:36)
[2017-09-23] MEDS: SENNA + DOCUSATE TABLET PO SCH ×2 (09:37→21:32)
[2017-09-23] MEDS: POLYETHYL GLYCOL 3350 17gm PACKET PO SCH (09:37)
[2017-09-23] MEDS: ASCORBIC ACID 500 MG TABLET PO SCH (09:37)
--- NOTE | 2017-09-23 20:35 | Progress Note ---
- Date 09/23/17 Subjective: Mr. Fu reported no change in his overall status. Continues to have dyspnea when speaking and complained of pain limiting his ability to move or participate in physical therapy. He confirmed that they've decided not to pursue bronchoscopy but is noncommittal about whether he wants to consider PET scan or follow-up CT imaging or whether he wants to continue active care or consider hospice. Objective Vital signs: Temperature 97.3 F 09/23/17 16:43 Pulse Rate 72 09/23/17 17:02 Respiratory Rate 18 09/23/17 19:13 Blood Pressure 113/61 09/23/17 16:43 Pulse Oximetry 95 09/23/17 16:43 NAD, alert, withdrawn Respirations nonlabored, diminished breath sounds-especially on the left Regular rhythm Abdomen soft Edema present bilateral lower extremities +2, +1 edema left upper extremity Flat affect Rhythm: Normal Sinus Rhythm Height/Weight/BMI: Height 1.73 m Weight 72.2 kg Body Mass Index 24.7 Results - Labs CBC & Chem 7: 09/23/17 04:17 09/23/17 04:17 Microbiology Results: Microbiology 09/19/17 12:15 Thoracic Fluid Gram Stain - Final 09/19/17 12:15 Thoracic Fluid Body Fluid Culture - Preliminary No Growth After 4 Days 09/19/17 12:15 Fluid Acid Fast Bacilli Culture & Smear - Preliminary 09/19/17 12:15 Pleural Fluid Fungal Culture - Preliminary Assessment and Plan (1) Pneumonia Problem details: Treatment completed Current visit: Yes Status: Acute (2) Pleural effusion on left Problem details: Probable transudate Current visit: Yes Status: Acute (3) Pulmonary mass Problem details: Bilateral Current visit: Yes Status: Acute Assessment and Plan: IMPRESSION Pneumonia, left lung-likely aspiration-treatment completed R/O severe sepsis - MAP <65, POA ABLA secondary to suspected chronic GI blood loss, transfused 1 unit PRBC 09/12 Moderate to large left pleural effusion, thoracentesis 1400 mL 09/19/17 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 Started on asa and statin at recommendation of Dr. Akilah Briscoe. 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 Plan for maintenance methimazole per Dr. Daniel. Sacral/right buttock pressure ulcer stage 4, wound VAC. No evidence of osteo on bone scan Multiple wounds bilateral lower extremities Suspect CHF with elevated BNP Acute kidney injury-POA, resolved Hypoxia Hyperkalemia - not POA Thrombocytosis, POA Hyponatremia, POA Malnutrition with albumin level of 1.7 AAA, PVD History A-fib (EF from 2016 was 50-55%), on amiodarone; paced rhythm currently HTN Mild COPD; on 2L HS HLD GERD Constipation MERI, Vitamin B12, and folate deficiencies Nonambulatory; left leg paralysis post aneurysm repair Major depression PLAN I had a lengthy discussion with both Mesfin and subsequently his who reported that she, the patient's daughter, and Mesfin would be meeting with jane Martienz this afternoon. The patient remains noncommittal with respect plans. I told him that he's ready to discharge from the hospital as were no longer actively treating any acute problems and that treatment of the wounds and hyperthyroidism can continue in an outpatient setting. After meeting with hospice the patient's reported that he remains very noncommittal. He expressed concern that discharge home with hospice would be too much for his to handle and I suspect that is accurate. was reminded that whatever course of action they choose today can be altered in 2 or 3 days if needed. Discharged tentatively planned for tomorrow either discharge home with hospice or discharge to [facility] with hospice support or continuation of active care at [facility] to determine if there is further stabilization with treatment for hyperthyroidism and wound care. Patient can pursue PET scan or repeat imaging of the chest by CT in 1-2 months if he opts for continuation of active care. Approximately 30 minutes spent in discussions with the patient and his today; 40 min in care. d/w case management and [employer] rep. Resuscitation Status: Do Not Resuscitate Hospital Course Summary Disclaimer: The visit summary below is not to be considered part of the above Progress Note. Hospital Course: IMPRESSION Pneumonia, left lung-likely aspiration R/O severe sepsis - MAP <65 ABLA secondary to suspected chronic GI blood loss Moderate to large left pleural effusion Celiac artery dissection - new finding. Started on asa and statin at recommendation of Dr. Akilah Briscoe. 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 No evidence of osteo on bone scan Multiple wounds bilateral lower extremities History A-fib (EF from 2016 was 50-55%), on amiodarone HTN Mild COPD; on 2L HS HLD GERD Constipation MERI, Vitamin B12, and folate deficiencies Nonambulatory; left leg paralysis post aneurysm repair Major depression Hyperthyroidism - on PTU. Plan for maintenance methimazole per Dr. Daniel. 09/12/17- hospital admission Admit, inpt status. PCP: Dr. Doyle. Code status: Full code. Pneumonia, R/O severe sepsis, hypoxia, mod-large pleural effusion, mild COPD -PSI/PORT = 147 points, risk class V (27-29% mortality) -Failed outpatient treatment with cefdinir and azithromycin (09/08-09/12) -received Levaquin IV in Ed but with severe interaction with amiodarone will start Rocephin instead -sputum cx, urine legionella and strep pneumo, resp panel -DuoNeb QID -O2 to maintain sats -elect not to give full fluid bolus d/t pleural effusion, hypoxia, and elevated BNP. BP responded well to 500 mL fluid challenge. -consult Dr. Mcpherson to tap pleural effusion. -consider pulm consult on Saturday 09/15. -suspect thrombocytosis is reactive to acute conditions. -may need oncology evaluation with masslike consolidation seen on CT chest ABLA secondary to suspected GI bleed -PRBC transfusion x1 unit. -hold Xarelto -anemia may be contributing to hypotension. -clear liquid diet for now (at [facility] he is on a regular diet and regular liquids) -PPI Suspect CHF with elevated BNP and mod-large pleural effusion -check echocardiogram -EKG -continue amiodarone and metoprolol if BP can tolerate Elevated creatinine, hyponatremia -500 mL NS bolus in ED -hold Lasix, lisinopril Multiple wounds, Malnutrition -consult wound clinic -consult dietitian when diet is advanced -hx MERI, vit B12 and folate deficiencies 09/13/17 11:12 [place] Await surgical opinion regarding possible thoracentesis on Friday. Continue supportive care with IV antibiotics. Lasix 20 mg IV x 1 for volume management. Increased pain medications (stopped tramadol, started norco 7.5 mg 6H prn) Continue clear liquids pending surgical opinion. Surveillance labs for AM on 09/14 Wound team following, continues on wound vac for pressue ulcer. 09/14/17 13:54 [place] Lasix 20 mg IVP x 1 again today for volume overload; breathing improving. [facility] [place] planned for evaluation of swallow function tomorrow. Repeat CXR in AM Hold on endoscopy, thoracentesis pending swallow eval and repeat CXR as well as goals of care discussions. Discuss goals of care further when above information available. Continue rocephin and monitor respiratory status. Continue norco for pain control, improved today. 09/15/17 18:13 Modified barium swallow canceled due to patient's inability to sit upright and radiology schedule. Sputum culture normal marisela, suspect aspiration as cause of acute respiratory symptoms. Hemoglobin stable. Total body fluid overload, will likely need additional diuresis. 09/16/17 16:21 Continue ceftriaxone and Duoneb txs for pneumonia. Wt up 3 kg. Give extra 40 of Lasix IV today. Check BMP in am to monitor electrolytes and kidney function. Barium swallow was neg for aspiration. Speech therapy recommendations are pending at this time. Dietary consult to address his malnutrition. 09/17/17 Again had extensive discussion with the patient regarding multiple concerns and challenges he is facing. Antibiotics completed yesterday after 5 days, chest x-ray in a.m. Ongoing concerns about swallow function-discussed with Dr. Mcpherson, EGD planned tomorrow. Patient does not want to proceed with colonoscopy at this time. TSH depressed and free T4 returned today significantly elevated. May be related to amiodarone use. Patient is clearly apathetic consistent with hyperthyroidism in an elderly patient and hyperthyroidism may impact patient's reported difficulty swallowing and malnutrition. Discussed with Dr. Daniel who will see the patient in consultation. Discussed with Dr. Ruiz this morning, previously reported bone culture was actually tissue culture. Wound care nurse reports decubitus on the right buttock does extend down to the bone however and patient at high risk for osteomyelitis. Unable to perform MRI but will schedule triple phase bone scan for further evaluation. No evidence DVT left upper extremity, localized edema likely positional as patient consistently lies on his left arm. Pain control improving progressively; some constipation with increased narcotic use-MiraLAX increased to 34 g daily with Senokot twice a day and MOM when necessary. Renal function improved/stable; nursing confirms improved oral intake. Xarelto remains on hold due to heme positive stools and anemia; consistently in sinus rhythm since arrival however known history atrial fibrillation. Patient continues to discuss possibility of converting to comfort care indicating he'll make his decision tomorrow depending on results of EGD. Patient doesn't want to be bedridden in a retirement indefinitely. At this time he clearly states that he does not wish to have resuscitative efforts initiated in the event of cardiac or pulmonary arrest and that he wants natural to be permitted should it occur. DO NOT RESUSCITATE order has subsequently been written at patient's request. 09/18/17 Again had extensive discussion with the patient regarding multiple concerns and challenges he is facing. Antibiotics completed yesterday after 5 days, chest x-ray with persistent LLL consolidation - will obtain CT thorax due to mass-like nature at admission. Ongoing concerns about swallow function-EGD doesn't explain dysphagia, MBS without aspiration. TSH depressed and free T4 returned today significantly elevated. May be related to amiodarone use. Patient is clearly apathetic consistent with hyperthyroidism in an elderly patient and hyperthyroidism may impact patient's reported difficulty swallowing and malnutrition. Dr. Daniel started PTU, will monitor for improvements. Dr. Proctor discussed case with Dr. Ruiz 09/17, previously reported bone culture was actually tissue culture. Wound care nurse reports decubitus on the right buttock does extend down to the bone however and patient at high risk for osteomyelitis. Will schedule triple phase bone scan to further evaluate. Pain control improving progressively Xarelto remains on hold due to heme positive stools and anemia; consistently in sinus rhythm since arrival however known history atrial fibrillation. Patient continues to discuss possibility of converting to comfort care - wanting to gather more information in bone scan and chest ct to make decisions. At this time he clearly states that he does not wish to have resuscitative efforts initiated in the event of cardiac or pulmonary arrest and that he wants natural to be permitted should it occur. DO NOT RESUSCITATE order has subsequently been written at patient's request. Continue to discuss nutrition. 09/19/17 Antibiotics completed 09/[address] chest 09/18/17 showed likely bilateral (left > right) malignant masses s/p thoracentesis today - cultures and pathology pending WBC up today, but afebrile - monitor, could have post-obstructive process 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 Akilah Briscoe who advised conservative care with asa and statin. Will start asa today - monitor h/h closely. F/u Dr Briscoe in [address] scan. Hyperthyroidism - on PTU, Dr. Daniel following and will recheck thyroid friday. Plan for maintenance methimazole. Dr. Proctor discussed case with Dr. Ruiz 09/17, previously reported bone culture was actually tissue culture. Wound care nurse reports decubitus on the right buttock does extend down to the bone however and patient at high risk for osteomyelitis. Bone scan negative for osteo. Change to scheduled percocet with prn morphine for pain Xarelto remains on hold due to heme positive stools and anemia; consistently in sinus rhythm since arrival however known history atrial fibrillation. Ongoing concerns about swallow function-EGD doesn't explain dysphagia, MBS without aspiration. Patient continues to discuss possibility of converting to comfort care - waiting for results of thoracentesis - patient is aware that a negative result still doesn't rule out malignancy. Also aware that he is likely not a candidate for treatment in the face of cancer. DNR. Continue to discuss nutrition. 09/20/17 Xarelto remains on hold due to heme positive stools and anemia; hgb dropping - down to 7.6 today. Will hold ASA which was started yesterday for new finiding of celiac artery dissection. Repeat CBC in am. Continue to follow low sodium and high potassium levels. No intervention at this point. Patient continues to discuss possibility of converting to comfort care - waiting for results of thoracentesis - patient is aware that a negative result still doesn't rule out malignancy. Also aware that he is likely not a candidate for treatment in the face of cancer. DNR. Wound care continues to follow wounds on sacrum and LE's. 09/21/17 Hemoglobin drifting down, may require transfusion tomorrow. Percocet increased to every 4 hours while awake due to inadequate control at 6 hour interval. Persistent hyponatremia and borderline hyperkalemia-screening cortisol level. Free T4 well-controlled on PTU, discussed with Dr. Daniel tomorrow. Pleural fluid culture negative, cytology pending. 09/22/17 Continue to follow hemoglobin. Stable for the past few days. Reassess hemoglobin in a.m. Cytology pending on pleural fluid Persistent thrombocytosis and borderline hyperkalemia-his cortisol drawn this morning is pending. Simethicone PRN gas sxs. 09/23/17 I had a lengthy discussion with both Mesfin and subsequently his who reported that she, the patient's daughter, and Mesfin would be meeting with jane Martinez this afternoon. The patient remains noncommittal with respect plans. I told him that he's ready to discharge from the hospital as were no longer actively treating any acute problems and that treatment of the wounds and hyperthyroidism can continue in an outpatient setting. After meeting with hospice the patient's reported that he remains very noncommittal. He expressed concern that discharge home with hospice would be too much for his to handle and I suspect that is accurate. was reminded that whatever course of action they choose today can be altered in 2 or 3 days if needed. Discharged tentatively planned for tomorrow either discharge home with hospice or discharge to [facility] with hospice support or continuation of active care at [facility] to determine if there is further stabilization with treatment for hyperthyroidism and wound care. Patient can pursue PET scan or repeat imaging of the chest by CT in 1-2 months if he opts for continuation of active care.
[2017-09-23] MEDS: PRAVASTATIN 40 MG TABLET PO SCH (21:31)
[2017-09-23] MEDS: MELATONIN 5 MG TABLET PO SCH (21:32)
[2017-09-23] MEDS: MELATONIN 1 MG TABLET PO SCH (21:32)
[2017-09-23] MEDS: TAMSULOSIN 0.4 MG CAPSULE PO SCH (21:32)
[2017-09-24] MEDS: PROPYLTHIOURACIL 50 MG TABLET PO SCH ×3 (03:48→14:50)
[2017-09-24] MEDS: OXYCODONE/APAP 7.5 MG/325 MG TABLET PO SCH ×4 (03:48→15:17)
[2017-09-24] MEDS: PANTOPRAZOLE 40 MG TABLET PO SCH (06:04)
[2017-09-24] MEDS: ALBUTEROL/IPRATROPIUM 2.5mg-0.5mg/3ml NEB AEROSOL SCH ×3 (07:49→15:09)
[2017-09-24 09:10] VITALS: BP 113/64; PULSE 76; TEMP 98.5
[2017-09-24] MEDS: FERROUS SULFATE 324 MG TABLET PO SCH (09:18)
[2017-09-24] MEDS: SENNA + DOCUSATE TABLET PO SCH (09:19)
[2017-09-24] MEDS: ASPIRIN 81 MG CHEWABLE TABLET PO SCH (09:19)
[2017-09-24] MEDS: SERTRALINE 25 MG TABLET PO SCH (09:19)
[2017-09-24] MEDS: ASCORBIC ACID 500 MG TABLET PO SCH (09:19)
[2017-09-24] MEDS: MAGNESIUM OXIDE 400 MG TABLET PO SCH (09:19)
[2017-09-24] MEDS: FUROSEMIDE 40 MG TABLET PO SCH (09:20)
[2017-09-24] MEDS: POLYETHYL GLYCOL 3350 17gm PACKET PO SCH (09:20)
[2017-09-24] MEDS: AMIODARONE 200 MG TABLET PO SCH (09:20)
[2017-09-24] MEDS: MORPHINE SULFATE 2mg INJECTION IVP PRN ×2 (10:39→15:17)
--- NOTE | 2017-09-24 10:49 | Extended Care Facility Orders ---
Admission Orders Admit to:: [facility], Hospice ([facility]) Allergies/Adverse Reactions: Allergies sulfamethoxazole [From Bactrim] Allergy (Unknown, Verified 09/12/17 16:41) trimethoprim [From Bactrim] Allergy (Unknown, Verified 09/12/17 16:41) Admitting Diagnosis: pneumonia,failed outpt,aneimia Admitting Physician: Cinthia Proctor MD Attending Physician: Cinthia Proctor MD Code Status: Do Not Resuscitate Anticiapted Length of Stay: greater than 30 days Rehab Potential: poor Rehab Prognosis: poor Diet: Regular Diet [DIET] Diet Modifications: Fluid Consistency: REG LIQUIDS Food Consistency: MECH SOFT Wound/Incision Care: Remove wound vac. Place [id number] dressing and cover with foam dressing. Change every 3 days. Wounds on the legs may be covered with a foam dressing and change every 3 days. Reminder: Patient may not return to wound care as he is on hospice. May use Facility Protocol or Standing Orders: Yes May have flu vaccine: Yes - Additional Information In Event of Arrest: Do Not Start CPR Resident is Aware of Diagnosis: Yes Additional Orders: oxygen as needed
[2017-09-24 11:38] VITALS: O2SAT 88
[2017-09-24 15:14] VITALS: RESP 16
--- NOTE | 2017-09-24 15:54 | Discharge Summary ---
Discharge Information Date of admission: 09/12/17 17:36 Anticipated date of discharge: 09/24/17 Attending Physician: Cinthia Proctor MD Primary care physician: Milagros Doyle MD Consults: Consulting Provider: Yosef Mcpherson Reason For Exam: heme positive stools & pleural effusion Consulting Provider: Chad Vitale Reason For Exam: hyperthyroid - Discharge Diagnosis (1) Pneumonia Status: Acute (2) Pleural effusion on left Status: Acute (3) Pulmonary mass Status: Acute Pneumonia, left lung-likely aspiration Severe sepsis - MAP <65 ABLA secondary to suspected chronic GI blood loss Moderate to large left pleural effusion Celiac artery dissection - new finding. Hyperthyroidism -new finding. Bilateral lower lobe masses by CT CHF, acute on chronic diastolic Acute kidney injury-POA, resolved Hypoxia Hyperkalemia - not POA Thrombocytosis, POA Hyponatremia, POA Malnutrition with albumin level of 1.7 Sacral/right buttock pressure ulcer stage 4 Multiple wounds bilateral lower extremities History A-fib, on amiodarone HTN AAA, PVD Mild COPD; on 2L HS HLD GERD Constipation MERI, Vitamin B12, and folate deficiencies Nonambulatory; left leg paralysis post aneurysm repair Major depression - Procedures Procedures: EGD on 09/18/17 revealing retained liquid and solid food in the stomach and duodenum; esophageal mucosa was normal, no strictures or narrowing in the esophagus. Gastric mucosa appeared normal without erosions or ulcerations. No evidence of gastric outlet obstruction, no duodenal ulcers or erosions. Thoracentesis on 09/19/17 with removal of approximately 1400 mL of fluid from the left hemithorax, culture/cytology negative. Echocardiogram on 09/15/17: 1. Normal cardiac chamber size. 2. Normal LV systolic function, EF of 62%, with mild diastolic dysfunction. 3. Sclerotic changes of the aortic and mitral valve, appropriate for age. 4. Very mild aortic stenosis. 5. Mild to moderate aortic regurgitation. 6. Mild tricuspid regurgitation. 7. Mild mitral regurgitation. 8. Mild pulmonary hypertension. 9. Mild RVH. 10. Normal central venous pressure. 11. Large pleural effusion. 12. No evidence of intracardiac masses, thrombi, vegetations or shunts. 13. Pacemaker leads are seen in the right heart. - Laboratory Labs: 09/23/17 04:17 09/23/17 04:17 On 09/12/17: TSH <0.02, free T4 6.98 On 09/21/17: Liver enzymes unremarkable, CRP 226.4, free T4-5.79 On 09/22/17: proBNP 1880, albumin 1.8, a.m. cortisol 12 - Microbiology Microbiology 09/19/17 12:15 Thoracic Fluid Gram Stain - Final 09/19/17 12:15 Thoracic Fluid Body Fluid Culture - Final No Growth After 5 Days 09/19/17 12:15 Fluid Acid Fast Bacilli Culture & Smear -no AFB seen on smear , culture pending 09/19/17 12:15 Pleural Fluid Fungal Culture - Preliminary 09/12/17 21:07 Sputum, Expectorated Gram Stain - Final 09/12/17 21:07 Sputum, Expectorated Sputum Culture - Final Normal Respiratory Marisela 09/12/17 18:37 Urine Legionella Urinary Antigen -negative 09/12/17 21:18 Urine Streptococcus pneumoniae Antigen -negative 09/12/17 respiratory viral panel negative - Radiology Radiology: Chest x-ray on admission demonstrated decreased size left pleural effusion compared to CTA of 09/08/17; continued area of density in the left lower lobe. Follow-up chest x-ray on 09/15 demonstrated increasing size in the left pleural effusion. Portable chest x-ray on 09/18 demonstrated stable consolidation of the left lower lobe with persistent effusion. CT of the abdomen/pelvis with contrast on 09/13/17: Moderate left pleural effusion with left lower lobe compressive atelectasis. Small nodular opacities in the right lower lobe with trace right effusion. The liver shows a small low-attenuation lesion possibly representing a cyst peripherally. The spleen, pancreas, adrenal glands and kidneys are stable. Previously repaired abdominal aortic aneurysm with a large excluded aneurysm sac, similar to the prior study. No evidence of rupture or impending rupture. Diffuse subcutaneous edema. Stent graft extends into the iliac arteries bilaterally. Bladder is grossly normal. Small amount of free pelvic fluid. Colonic anastomosis. No evidence of a small bowel obstruction. No free air. Severe degenerative change in the hips. Severe degenerative change in the lower lumbar spine. Bony demineralization. Deep skin ulcer noted over the lower portion of the sacrum which may extend to the bone. Impression: 1. No acute disease process seen in the abdomen or pelvis. 2. Anasarca consistent with a generalized volume overload. 3. Left pleural effusion. 4. Sacral decubitus ulcer. Modified barium swallow on 09/16/17: Videofluoroscopy was performed in conjunction with a small business representative from speech pathology and a separate report and recommendations will be provided. Varying gradations of barium from thin to solid were administered. There was no aspiration noted with any of the consistencies. Due to the patient's limited mobility, no AP imaging was obtained. Impression: No aspiration seen. Venous Doppler of the left upper extremity on 09/16/17 was without evidence of DVT CT chest with contrast on 09/18/17: Persistent moderate to large left pleural effusion. There is an irregular mass in the left lower lobe causing abrupt cut off of several left lower lobe bronchi best seen on axial image #38. This is somewhat difficult to assess and measure given the adjacent atelectatic lung but it appears to be 3.1 cm in diameter. Posterior calcifications noted near the lung pleura interface on axial image #44. There is a small right pleural effusion with right basilar atelectasis and areas of right lower lobe pleural thickening. Irregular masslike area of density along the posterior right hilar area seen on axial image #29 with a spiculated mass measuring 3 cm in maximal diameter. The appearance of this lesion is stable from the recent comparison. Small irregular right lower lobe nodule on image #43 measuring 6 mm in size. Persistent region of consolidation and atelectasis along the left major fissure. No pneumothorax. The right-sided airways are widely patent. The thyroid gland is heterogeneous. No axillary adenopathy. Stable small mediastinal lymph nodes. Heart size and great vessels are unchanged. No pericardial effusion. The upper abdomen shows a markedly distended gallbladder and stomach. 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 Artery diameter is 1.3 cm. The dissection extends into the proper hepatic artery. Dissection causes mild stenosis, probably on the order of 50% at its worst. Impression: 1. Bilateral lower lobe masses, left greater than right. These could represent primary malignancies or metastases. PET/CT may be helpful. Bronchoscopic biopsy of the left lower lobe mass may be possible. Alternatively diagnostic and therapeutic thoracentesis could be performed. 2. 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 Current recommendations are for imaging follow-up rather than intervention if the patient is asymptomatic. Triple phase bone scan on 09/19/17: The scan demonstrates the expected normal biodistribution for the radiotracer. No areas of abnormal uptake seen on the arterial phase imaging. There is some motion artifact. No focal areas of uptake seen on the blood pool phase imaging. Degenerative uptake in the hips noted on the delayed phase images. Uptake in the area of the patient's wound VAC also noted. No uptake seen in the sacrococcygeal region of clinical concern. Impression: No bone scan evidence for osteomyelitis. - Pathology Pleural fluid cytology-no malignant cells seen History of Present Illness HPI: Mesfin Fu is a 77 y/o male with a complicated medical hx. 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 He has been living at [facility]. He's had postop complications including wounds - a sacral wound, one to his right hip that is being treated with a wound vac, and wounds on both lower ext. His left leg has been chronically edematous since the surgery and more recently he's developed swelling to his upper left arm. He denies paresthesias but couldn't feel touch to his left lower leg during assessment. His denies any change in mentation - he has occasional confusion, especially regarding timeline. Over the last 2 weeks, he's had increasing shortness of breath, poor appetite, increased leg swelling, weeping of serous fluids from left arm and possibly legs. His , Casie, describes his breathing being so difficult at times he can' t talk. He had a CT scan to look for PE on 09/08/17. While this was negative for PE, it was positive for a moderate to large left pleural effusion, scattered bilateral groundlgass opacities, and a 3.6 x 2.4 cm masslike airspace consolidation in the medial RLL. He was started on cefdinir and Zithromax on . He's had fevers of 101-102 over the last week. He's had a cough as well. He feels weak in general. His describes abdominal cramps but he denies any current abdominal pain, or any recent n/v/d/c. He hasn't been voiding very much , but when he does it verduzco. He presented to [facility] ED on 09/12/17 for further evaluation of his symptoms. Initially he was maintaining sats on 3L, but then dropped to 81%. BP was as low as 82/46, and he received 500 mL fluid bolus. BP improved to >100/50. WBC was elevated at 12, and he had a left shift with 88% neutrophils and 5% bands. Hgb was markedly low at 6.9 and his stool was heme positive. Platelets were elevated at 520. Na was slightly low at 132; BUN and creatinine were elevated at 41 and 1.9, above baseline (per [facility] records, in Jun BUN was 10 and creatinine was 0.88, but in 2015 creatinine was 1.3-1.5). Albumin was also quite low at 1.7. CXR showed left sided pneumonia. He received Levaquin 750 mg IV for pneumonia. He was typed and screened for [address] Proctor was consulted and admitted the patient to inpatient status. LOS will exceed 2 overnights and will require cardiopulmonary stabilization, treatment of possible sepsis, and surgical consultation for heme positive stools and regarding the pleural effusion. Hospital Course This is a general summary of the patient's hospital course. For more details refer to the complete medical record. Hospital course: IMPRESSION Pneumonia, left lung-likely aspiration Severe sepsis - MAP <65 ABLA secondary to suspected chronic GI blood loss Moderate to large left pleural effusion, s/p thoracentesis Celiac artery dissection - new finding. Lateral pulmonary masses by CT Hyperthyroidism - on PTU. Plan for maintenance methimazole per Dr. Vitale. Acute/chronic diastolic CHF with elevated BNP Acute kidney injury-POA, resolved Hypoxia Hyperkalemia - not POA Thrombocytosis, POA Hyponatremia, POA Malnutrition with albumin level of 1.7 Sacral/right buttock pressure ulcer stage 4, wound VAC. No evidence of osteo on bone scan Multiple wounds bilateral lower extremities History A-fib, on amiodarone HTN AAA, PVD Mild COPD; on 2L HS HLD GERD Constipation MERI, Vitamin B12, and folate deficiencies Nonambulatory; left leg paralysis post aneurysm repair Major depression 09/12/17- hospital admission Pneumonia, R/O severe sepsis, hypoxia, mod-large pleural effusion, mild COPD -PSI/PORT = 147 points, risk class V (27-29% mortality) -Failed outpatient treatment with cefdinir and azithromycin (09/08-09/12) -received Levaquin IV in Ed but with severe interaction with amiodarone will start Rocephin instead -sputum cx, urine legionella and strep pneumo, resp panel--all unremarkable, sputum normal marisela -elect not to give full fluid bolus d/t pleural effusion, hypoxia, and elevated BNP. BP responded well to 500 mL fluid challenge. -consult Dr. Mcpherson to tap pleural effusion. ABLA secondary to suspected GI bleed -PRBC transfusion x1 unit. -hold Xarelto -anemia may be contributing to hypotension. -clear liquid diet for now (at [facility] he is on a regular diet and regular liquids) -PPI Suspect CHF with elevated BNP and mod-large pleural effusion -check echocardiogram-and straight and preserved ejection fraction. -EKG -continue amiodarone and metoprolol if BP can tolerate Elevated creatinine, hyponatremia -500 mL NS bolus in ED -hold Lasix, lisinopril Multiple wounds, Malnutrition -consult wound clinic -consult dietitian when diet is advanced -hx MERI, vit B12 and folate deficiencies 09/13/17 Continue supportive care with IV antibiotics. Lasix 20 mg IV x 1 for volume management. Increased pain medications (stopped tramadol, started norco 7.5 mg 6H prn) Continue clear liquids pending surgical opinion. 09/14/17 Lasix 20 mg IVP x 1 again today for volume overload; breathing improving. [facility] planned for evaluation of swallow function tomorrow. Hold on endoscopy, thoracentesis pending swallow eval and repeat CXR as well as goals of care discussions. Discuss goals of care further when above information available. Continue rocephin and monitor respiratory status. Continue norco for pain control, improved today. 09/15/17 Modified barium swallow canceled due to patient's inability to sit upright and radiology schedule. Sputum culture normal marisela, suspect aspiration as cause of acute respiratory symptoms. Total body fluid overload, will likely need additional diuresis. 09/16/17 Continue ceftriaxone and Duoneb txs for pneumonia. Wt up 3 kg. Give extra 40 of Lasix IV today. Barium swallow was neg for aspiration. Speech therapy recommended [facility] soft diet, reg liquids. Patient described inadequate pain control as his primary concern-scheduled Percocet initiated. Low-dose sertraline initiated for depression. 09/17/17 Again had extensive discussion with the patient regarding multiple concerns and challenges he is facing. Antibiotics completed yesterday after 5 days. Ongoing concerns about swallow function-discussed with Dr. Mcpherson, EGD planned tomorrow. Patient does not want to proceed with colonoscopy at this time. TSH depressed and free T4 returned today significantly elevated. May be related to amiodarone use. Patient is clearly apathetic consistent with hyperthyroidism in an elderly patient and hyperthyroidism may impact patient's reported difficulty swallowing and malnutrition. Discussed with Dr. Vitale who initiated treatment with PTU later in the day. Discussed with Dr. Ruiz this morning, previously reported bone culture was actually tissue culture. Wound care nurse reports decubitus on the right buttock does extend down to the bone however and patient at high risk for osteomyelitis. Unable to perform MRI but will schedule triple phase bone scan for further evaluation. No evidence DVT left upper extremity, localized edema likely positional as patient consistently lies on his left arm. Pain control improving progressively; some constipation with increased narcotic use-MiraLAX increased to 34 g daily with Senokot twice a day and MOM when necessary. Xarelto remains on hold due to heme positive stools and anemia; consistently in sinus rhythm since arrival however known history atrial fibrillation. Patient continues to discuss possibility of converting to comfort care indicating he'll make his decision tomorrow depending on results of EGD. Patient doesn't want to be bedridden in a assisted indefinitely. At this time he clearly states that he does not wish to have resuscitative efforts initiated in the event of cardiac or pulmonary arrest and that he wants natural to be permitted should it occur. DO NOT RESUSCITATE order has subsequently been written at patient's request. 09/18/17 Again had extensive discussion with the patient regarding multiple concerns and challenges he is facing. Chest x-ray with persistent LLL consolidation - will obtain CT thorax due to mass-like nature at admission. Ongoing concerns about swallow function-EGD doesn't explain dysphagia, MBS without aspiration. 09/19/17 CT chest 09/18/17 showed likely bilateral (left > right) malignant masses s/p thoracentesis today - cultures and pathology pending 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 Akilah Briscoe who advised conservative care with asa and statin. Will start asa today - monitor h/h closely. F/u Dr Briscoe in [address] scan. Bone scan negative for osteo. 09/20/17 Xarelto remains on hold due to heme positive stools and anemia; hgb dropping - down to 7.6 today. Patient continues to discuss possibility of converting to comfort care - waiting for results of thoracentesis - patient is aware that a negative result still doesn't rule out malignancy. Also aware that he is likely not a candidate for treatment in the face of cancer. DNR. Wound care continues to follow wounds on sacrum and LE's. 09/21/17 Percocet increased to every 4 hours while awake due to inadequate control at 6 hour interval. Persistent hyponatremia and borderline hyperkalemia-screening cortisol level in am. Free T4 slightly improved remains elevated-PTU dose increased to 150 mg 4 times daily. Pleural fluid culture negative, cytology pending. 09/22/17 Continue to follow hemoglobin. Stable for the past few days. Reassess hemoglobin in a.m. Cytology negative on pleural fluid. Extensive discussions regarding options for further workup of pleural masses-patient has decided against bronchoscopy and unsure if he wishes to pursue further imaging. Advised that if malignancy identified his functional status and stage IV decubitus ulcer would preclude chemotherapy at this time. Persistent thrombocytosis and borderline hyperkalemia-cortisol normal. 09/23/17 -Esthela I had a lengthy discussion with both Mesfin and subsequently his who reported that she, the patient's daughter, and Mesfin would be meeting with [facility] this afternoon. The patient remains noncommittal with respect plans. I told him that he's ready to discharge from the hospital as were no longer actively treating any acute problems and that treatment of the wounds and hyperthyroidism can continue in an outpatient setting. After meeting with hospice the patient's reported that he remains very noncommittal. He expressed concern that discharge home with hospice would be too much for his to handle and I suspect that is accurate. was reminded that whatever course of action they choose today can be altered in 2 or 3 days if needed. Discharged tentatively planned for tomorrow either discharge home with hospice or discharge to [facility] with hospice support or continuation of active care at [facility] to determine if there is further stabilization with treatment for hyperthyroidism and wound care. Patient can pursue PET scan or repeat imaging of the chest by CT in 1-2 months if he opts for continuation of active care. 09/24/17-discharge Patient and his have elected to return to [facility] with hospice care provided by [facility]. Patient reports no new concerns today and did not complain of dyspnea but reported minor cough. Pain control was adequate when seen this morning. The patient was alert with flat affect, respirations were nonlabored with poor inspiratory effort and diminished breath sounds throughout the anterior lung argueta. There is +2 bilateral lower extremity edema unchanged from the past. Discussed with Dr. Doyle; discharge documents prepared and medications written per hospice request. In addition to medications that appear on the medication list below the patient was also discharged with prescriptions for Roxanol 5-20 mg every 2 hours when necessary and Ativan 0.5 mg every 4 hours when necessary; medications do not appear on the medication list due to a EMR problem with controlled substances today. Stable for discharge. Time spent with patient: discharge greater than 30 minutes Discharge Plan - Med Rec/Dispo Referrals/Follow Up: Milagros Doyle MD [Family Provider] - [facility] Instructions: Pneumonia (GEN) Prescriptions: New RX: Propylthiouracil 150 mg PO Q6HR tab RX: PEG 3350 17gm PACKET [Miralax] 34 gm PO DAILY packet RX: Milk of Magnesia [Mom] 30 ml PO DAILY PRN udc PRN Reason: Constipation RX: Senna + Docusate [Senna Plus Tablet] 2 tab PO BID tab RX: Oxycodone/Apap 7.5/325 [Percocet 7.5/325] 1 tab PO Q4H #0 tab Continue RX: Ascorbic Acid [Vitamin C] 1,000 mg PO DAILY #0 RX: Pantoprazole Sodium 40 mg PO DAILY #0 RX: Metoprolol Tartrate [Lopressor] 100 mg PO BID RX: Simethicone 125 mg PO PRN RX: Melatonin/Pyridoxine HCl (B6) [Melatonin 3 mg Tablet] 6 mg PO HS RX: Tamsulosin [Flomax] 0.4 mg PO HS RX: Tramadol [Ultram] 50 mg PO QID PRN PRN Reason: Pain RX: Amiodarone [Pacerone] 200 mg PO BID Changed RX: Albuterol/Ipratropium [Duoneb] 1 unit AEROSOL QID PRN #0 PRN Reason: Shortness Of Air/Wheezing Discontinued RX: Pravastatin Sodium 80 mg PO HS #0 RX: Lisinopril [Prinivil] 5 mg PO DAILY RX: Furosemide [Lasix] 40 mg PO DAILY Azithromycin [Zithromax] 250 mg PO DAILY Cholecalciferol (Vitamin D3) [Vitamin D3] 1,000 unit PO DAILY Magnesium Oxide [Magox 400] 400 mg PO BID Docusate Sodium [Colace] 100 mg PO BID Multivitamin [One Daily Multivitamin] 1 each PO DAILY Rivaroxaban [Xarelto] 20 mg PO DAILY RX: Polyethylene Glycol 3350 17 gm PO DAILY Ferrous Sulfate [Iron] 325 mg PO BID RX: Cefdinir 600 mg PO DAILY - Disposition 50 Discharged To Hospice-Home
--- NOTE | 2017-09-24 16:42 | Endocrinology Progress Note ---
Subjective Principal diagnosis: Hyperthyroidism Interval history: Breathing easily. Denies chest pain. Has poor appetite. No palpitations. Exam Vital signs: Temperature 98.5 F 09/24/17 09:10 Pulse Rate 76 09/24/17 09:10 Respiratory Rate 16 09/24/17 15:10 Blood Pressure 113/64 09/24/17 09:10 Pulse Oximetry 88 L 09/24/17 11:36 - Constitutional no acute distress, well developed, thin - Routine HEENT Exam Head: Present: normocephalic, atraumatic Eye: Present: EOMI ENT: Present: mucous membranes moist - Routine Neck Exam Absent: thyromegaly - Routine Respiratory Exam Absent: dyspnea - Routine Cardiovascular Exam Present: RRR - Routine Abdominal Exam Present: soft, normoactive bowel sounds - Routine Extremities Exam Present: edema - Routine Skin Exam Present: dry, warm - Routine Neurological Exam Present: alert, oriented X3 - Routine Psychiatric Exam Present: normal affect, normal thought process, good insight, good judgment Assessment and Plan (1) Hyperthyroidism Status: Acute Stable on PTU. Continue current dose, transitioning later to methimazole as indices become more euthyroid.
== END 2017-09-24 15:43 | disposition hospice, home (50) | DRG 193 ==
LOC: ED 16:00 → SUATTDRO 17:36 → MED 17:36
PROVIDERS: ADMIT Internal Medicine; ATTEND Internal Medicine
PROC: END.EGD (2017-09-18 07:30)